=== PATIENT | female | born 1945 | race Caucasian/White ===

== ENCOUNTER 2017-01-16 05:54 | Inpatient (IN) | payer OTHER ==
[2017-01-14 14:29] VITALS: BMI 39.0
[~2017-01-16 05:54] MED LIST: PANTOPRAZOLE 40 MG TABLET (FP) PO ONE
[2017-01-16] MEDS ORDERED: TRANEXAMIC ACID 1000 MG/10 ML VIAL IVPUSH ONE (06:05)
[2017-01-16] MEDS ORDERED: CELECOXIB 200 MG CAPSULE PO ONE (06:05)
[2017-01-16] MEDS ORDERED: CEFAZOLIN 2 GM in DEXTROSE 5%-WATER - 50 ML IVPB ONE (06:05)
[2017-01-16] MEDS ORDERED: oxyCODONE HCL 10 MG SUSTAINED ACTING TABLET PO ONE (06:05)
[2017-01-16] MEDS ORDERED: GABAPENTIN 300 MG CAPSULE (FP) PO ONE (06:05)
[2017-01-16] MEDS ORDERED: ROPIVICAINE 0.2%/MORPH PF/KETOROLAC - 51ML DISP.SYRINGE IA ONE ×2 (06:05→07:12)
[2017-01-16] MEDS ORDERED: GABAPENTIN 300 MG CAPSULE (FP) ONE (06:08)
[2017-01-16] MEDS ORDERED: oxyCODONE HCL 10 MG SUSTAINED ACTING TABLET ONE (06:08)
[2017-01-16] MEDS ORDERED: PANTOPRAZOLE 40 MG TABLET (FP) ONE (06:08)
[2017-01-16] MEDS ORDERED: CELECOXIB 200 MG CAPSULE ONE (06:08)
[2017-01-16] MEDS ORDERED: DEXAMETHASONE SOD PHOSPHATE/PF 10 MG/ML SDV ONE (06:28)
[2017-01-16] MEDS ORDERED: ROPIVACAINE HCL 0.5% 30ML VIAL ONE (06:28)
[2017-01-16] MEDS ORDERED: MIDAZOLAM HCL 2 MG/2 ML SINGLE DOSE VIAL ONE ×2 (06:28→07:02)
[2017-01-16] MEDS ORDERED: TRANEXAMIC ACID 1000 MG/10 ML VIAL ONE ×2 (07:01→07:11)
[2017-01-16] MEDS ORDERED: PROPOFOL 20 ML ONE ×7 (07:02)
[2017-01-16] MEDS ORDERED: SUCCINYLCHOLINE CHLORIDE 200 MG/10 ML VIAL ONE (07:02)
[2017-01-16] MEDS ORDERED: ceFAZolin SODIUM 1 GM VIAL ONE ×2 (07:11→07:20)
[2017-01-16] MEDS ORDERED: ePHEDrine SULFATE 50 MG/1 ML AMPULE ONE (07:11)
[2017-01-16] MEDS ORDERED: VANCOMYCIN 1,000 MG VIAL (RESTRICTED TO ID ONLY) ONE (07:12)
[2017-01-16] MEDS ORDERED: BUPIVACAINE HCL/PF 0.5% (5MG/ML) 10 ML VIAL ONE (07:17)
[2017-01-16] MEDS ORDERED: SODIUM CHLORIDE 0.9% P/F 10 ML VIAL IJ ONE (07:20)
[2017-01-16] MEDS ORDERED: ONDANSETRON 4 MG/2 ML VIAL ONE ×2 (08:29→13:02)
[2017-01-16] MEDS ORDERED: LIDOCAINE HCL 2% JELLY (5 ML/TUBE) ONE (09:06)
[2017-01-16] MEDS ORDERED: ONDANSETRON 4 MG/2 ML VIAL IVPUSH PRN ×2 (10:36→13:10)
[2017-01-16] MEDS ORDERED: oxyCODONE HCL 5 MG TABLET PO PRN (10:36)
[2017-01-16] MEDS ORDERED: LACTATED RINGERS SOLUTION 1,000 ML IV SCH ×2 (10:45→13:15)
--- NOTE | 2017-01-16 12:17 | SURG ---
Surgery Gunnery/Ordnance Officer Note Gunnery/Ordnance Officer: Lizandro Walters PA-C Date of Service: 01/16/17 Diagnosis: Left knee osteoarthritis, DJD Procedure: Left total knee replacement I was present for the entirety of the operative procedure. For further detail, please refer to operative report. Visit type - Case Type Case Type: Scheduled Admission - New patient This patient is new to me today: Yes Date on this admission: 01/16/17
[2017-01-16] MEDS ORDERED: ONDANSETRON 4 MG/2 ML VIAL IVPUSH ONE (13:00)
[2017-01-16] MEDS ORDERED: MAGNESIUM HYDROX 2400MG/30ML ORAL SUSPENSION 30 ML CUP PO PRN (13:10)
[2017-01-16] MEDS ORDERED: MAG HYDROX/AL HYDROX/SIMETH 30 ML UNIT-DOSE CUP PO PRN (13:10)
--- NOTE | 2017-01-16 13:14 | OP ---
Operative Note - Note: Operative Date: 01/16/17 Pre-Operative Diagnosis: left knee OA Operation: left TKA Post-Operative Diagnosis: Same as Pre-op Surgeon: Calvin Jara Corner Former: Lizandro Walters Anesthesia: Spinal Estimated Blood Loss (mls): 150
[2017-01-16] MEDS ORDERED: KETOROLAC TROMETHAMINE 30 MG/1 ML VIAL IVPUSH ONE (13:30)
[2017-01-16] MEDS ORDERED: ACETAMINOPHEN 1000 MG/100 ML VIAL (NON FORMULARY) IVPB ONE ×2 (13:30)
[2017-01-16] MEDS ORDERED: traMADol HCL 50 MG TABLET PO ONE (14:00)
[2017-01-16] MEDS: oxyCODONE HCL 5 MG TABLET PO PRN (18:32)
[2017-01-16] MEDS: CEFAZOLIN 2 GM/D5W 50 ML IVPB SCH (18:32)
[2017-01-16] MEDS ORDERED: DEXAMETHASONE SOD PHOSPHATE 10 MG/1 ML VIAL IVPB ONE (20:00)
[2017-01-16] MEDS: KETOROLAC TROMETHAMINE 30 MG/1 ML VIAL IVPUSH SCH (20:12)
[2017-01-16] MEDS: ACETAMINOPHEN 325 MG TABLET (FP) PO SCH (20:13)
[2017-01-16] MEDS: traMADol HCL 50 MG TABLET PO SCH (20:13)
[2017-01-16] MEDS: CELECOXIB 200 MG CAPSULE PO SCH (21:17)
[2017-01-16] MEDS: GABAPENTIN 300 MG CAPSULE (FP) PO SCH (21:18)
[2017-01-16] MEDS: ASCORBIC ACID 500 MG TABLET (FP) PO SCH (21:18)
[2017-01-16] MEDS: oxyCODONE HCL 10 MG SUSTAINED ACTING TABLET PO SCH (21:18)
[2017-01-16] MEDS: SENNOSIDES/DOCUSATE COMBO (SENNA PLUS) TABLET (UD) PO SCH (21:18)
[2017-01-16] MEDS ORDERED: GABAPENTIN 300 MG CAPSULE (FP) PO SCH (22:00)
[2017-01-17] MEDS: KETOROLAC TROMETHAMINE 30 MG/1 ML VIAL IVPUSH SCH ×2 (01:44→08:30)
[2017-01-17] MEDS: CEFAZOLIN 2 GM/D5W 50 ML IVPB SCH (01:44)
[2017-01-17] MEDS: ACETAMINOPHEN 325 MG TABLET (FP) PO SCH ×4 (01:45→18:45)
[2017-01-17] MEDS: traMADol HCL 50 MG TABLET PO SCH ×4 (01:46→20:19)
[2017-01-17] MEDS: metFORMIN HCL 500 MG TABLET (FP) PO SCH (06:25)
[2017-01-17 07:37] LABS: MCHC 33.1 g/dl (32.0-36.0); MEAN CELL VOLUME 84.6 fl (80-96); PLATELET COUNT 223 K/MM3 (134-434); WHITE BLOOD COUNT 8.9 K/mm3 (4.0-10.8)
[2017-01-17 08:01] LABS: ANION GAP 5 (8-16); CALCIUM 8.7 mg/dl (8.4-10.2); CO2 25 mmol/L (22-28); CREATININE 0.9 mg/dl (0.6-1.3); GLUCOSE,RANDOM 193 mg/dl (74-106)
[2017-01-17] MEDS: ASPIRIN 325 MG TABLET PO SCH (09:03)
--- NOTE | 2017-01-17 10:27 | PN ---
Progress Note, Physician Chief Complaint: s/p left tka History of Present Illness: under spinal anesthesia and PNB for post op pain control - Current Medication List Current Medications: Active Medications Acetaminophen (Tylenol -) 650 mg PO Q6H [facility] Stop: 01/19/17 19:29 Last Admin: 01/17/17 08:00 Dose: 650 mg Al Hydroxide/Mg Hydroxide (Mylanta Oral Suspension -) 30 ml PO Q4H PRN PRN Reason: DYSPEPSIA Ascorbic Acid (Vitamin C -) 500 mg PO BID [facility] Last Admin: 01/16/17 21:18 Dose: 500 mg Aspirin (Asa -) 325 mg PO DAILY@0800 [facility] Last Admin: 01/17/17 09:03 Dose: 325 mg Celecoxib (Celebrex -) 200 mg PO BID [facility] Last Admin: 01/16/17 21:17 Dose: 200 mg Fentanyl (Sublimaze Injection -) 50 mcg IVPUSH [id number] PRN PRN Reason: PAIN Stop: 01/19/17 10:37 Gabapentin (Neurontin -) 300 mg PO BID [facility] Last Admin: 01/16/17 21:18 Dose: 300 mg Gabapentin (Neurontin -) 300 mg PO BID [facility] Stop: 01/19/17 21:59 Lactated Ringer's (Lactated Ringers Solution) 1,000 mls @ 125 mls/hr IV ASDIR [facility] Losartan Potassium (Cozaar -) 50 mg PO DAILY [facility] Magnesium Hydroxide (Milk Of Magnesia -) 30 ml PO PRN PRN PRN Reason: CONSTIPATION Metformin HCl (Glucophage -) 500 mg PO ACBK [facility] Last Admin: 01/17/17 06:25 Dose: 500 mg Multivitamins/Minerals/Vitamin C (Tab-A-Vit -) 1 tab PO DAILY [facility] Ondansetron HCl (Zofran Injection) 4 mg IVPUSH Q6H PRN PRN Reason: NAUSEA Oxycodone HCl (Roxicodone -) 5 mg PO Q3H PRN PRN Reason: PAIN LEVEL 1-5 Oxycodone HCl (Roxicodone -) 10 mg PO Q3H PRN PRN Reason: PAIN LEVEL 6-10 Last Admin: 01/16/17 18:32 Dose: 10 mg Oxycodone HCl (Oxycontin -) 10 mg PO BID [facility] Last Admin: 01/16/17 21:18 Dose: 10 mg Pantoprazole Sodium (Protonix -) 40 mg PO DAILY [facility] Senna/Docusate Sodium (Pericolace -) 2 tablet PO BID [facility] Last Admin: 01/16/17 21:18 Dose: 2 tablet Tramadol HCl (Ultram -) 50 mg PO Q6H [facility] Last Admin: 01/17/17 08:30 Dose: 50 mg - Objective Vital Signs: Vital Signs Temperature 98.0 F 01/17/17 06:24 Pulse Rate 79 01/17/17 06:24 Respiratory Rate 16 01/17/17 07:59 Blood Pressure 107/92 01/17/17 06:24 O2 Sat by Pulse Oximetry (%) 98 01/17/17 07:59 Constitutional: Yes: Well Nourished Cardiovascular: Yes: WNL Respiratory: Yes: WNL Gastrointestinal: Yes: WNL Labs: CBC, BMP 01/17/17 07:00 01/17/17 07:00 Assessment/Plan patient is doing well, no pain, no adverse effects of anesthetic, dept of anesthesia will sign off care at this time
[2017-01-17] MEDS: SENNOSIDES/DOCUSATE COMBO (SENNA PLUS) TABLET (UD) PO SCH ×2 (10:44→21:21)
[2017-01-17] MEDS: LOSARTAN POTASSIUM 50 MG TABLET (FP) PO SCH (10:45)
[2017-01-17] MEDS: MULTIVITAMINS (DAILY MVI) TABLET (FP) PO SCH (10:45)
[2017-01-17] MEDS: CELECOXIB 200 MG CAPSULE PO SCH ×2 (10:46→21:22)
[2017-01-17] MEDS: PANTOPRAZOLE 40 MG TABLET (FP) PO SCH (10:46)
[2017-01-17] MEDS: ASCORBIC ACID 500 MG TABLET (FP) PO SCH ×2 (10:46→21:22)
[2017-01-17] MEDS: GABAPENTIN 300 MG CAPSULE (FP) PO SCH ×2 (10:47→21:21)
[2017-01-17] MEDS: oxyCODONE HCL 10 MG SUSTAINED ACTING TABLET PO SCH ×2 (10:47→21:22)
--- NOTE | 2017-01-17 16:42 | PN ---
Progress Note (short form) - Note Progress Note: Pt seen and examined. Doing exceptionally well. Walked 1000+ feet since surgery. AVSS Selected Entries 01/17/17 01/17/17 07:59 14:23 Temperature 97.5 F L Pulse Rate 89 Respiratory 16 Rate Blood Pressure 132/67 O2 Sat by Pulse 98 Oximetry (%) Oxygen Delivery Room Air Method Laboratory Tests 01/17/17 01/17/17 07:00 07:00 WBC 8.9 Hgb 12.0 Hct 36.3 Plt Count 223 Sodium 131 L Potassium 4.8 Chloride 101 Carbon Dioxide 25 Anion Gap 5 L BUN 19 H Creatinine 0.9 Random Glucose 193 H Calcium 8.7 Gen: NAD LLE: c/d/i, NVID A/P 71yo female POD#1 s/p L TKA 1. PT/OOB 2. Plan for d/c home in AM
[2017-01-17] MEDS: oxyCODONE HCL 5 MG TABLET PO PRN (20:19)
[2017-01-17 22:23] VITALS: PULSE 79
[2017-01-18] MEDS: traMADol HCL 50 MG TABLET PO SCH ×2 (02:17→08:16)
[2017-01-18] MEDS: ACETAMINOPHEN 325 MG TABLET (FP) PO SCH ×2 (02:18→08:16)
[2017-01-18] MEDS: metFORMIN HCL 500 MG TABLET (FP) PO SCH (06:39)
[2017-01-18 06:43] VITALS: BP 141/64; TEMP 97.4
[2017-01-18 07:47] LABS: MCH 28.2 pg (25.7-33.7); MCHC 33.6 g/dl (32.0-36.0); MEAN PLT VOLUME 8.6 fl (7.5-11.1); PLATELET COUNT 228 K/MM3 (134-434); RDW 12.9 % (11.6-15.6); WHITE BLOOD COUNT 7.3 K/mm3 (4.0-10.8)
[2017-01-18 08:09] LABS: ANION GAP 6 (8-16); CALCIUM 8.4 mg/dl (8.4-10.2); CO2 27 mmol/L (22-28); CREATININE 0.7 mg/dl (0.6-1.3); GLUCOSE,RANDOM 128 mg/dl (74-106)
[2017-01-18] MEDS: ASPIRIN 325 MG TABLET PO SCH (08:17)
[2017-01-18] MEDS: CELECOXIB 200 MG CAPSULE PO SCH (09:05)
[2017-01-18] MEDS: LOSARTAN POTASSIUM 50 MG TABLET (FP) PO SCH (09:05)
[2017-01-18] MEDS: oxyCODONE HCL 10 MG SUSTAINED ACTING TABLET PO SCH (09:06)
[2017-01-18] MEDS: GABAPENTIN 300 MG CAPSULE (FP) PO SCH (09:06)
[2017-01-18] MEDS: SENNOSIDES/DOCUSATE COMBO (SENNA PLUS) TABLET (UD) PO SCH (09:06)
[2017-01-18] MEDS: PANTOPRAZOLE 40 MG TABLET (FP) PO SCH (09:07)
[2017-01-18] MEDS: MULTIVITAMINS (DAILY MVI) TABLET (FP) PO SCH (09:07)
[2017-01-18] MEDS: ASCORBIC ACID 500 MG TABLET (FP) PO SCH (09:07)
--- NOTE | 2017-01-18 11:09 | PN ---
Progress Note (short form) - Note Progress Note: Pt seen and examined. Doing exceptionally well. Walked 1500+ feet since surgery. AVSS Selected Entries 01/18/17 06:00 Temperature 97.4 F L Pulse Rate 79 Respiratory 19 Rate Blood Pressure 141/64 O2 Sat by Pulse 98 Oximetry (%) Oxygen Delivery Room Air Method Laboratory Tests 01/18/17 01/18/17 07:35 07:35 WBC 7.3 Hgb 11.7 Hct 34.8 Plt Count 228 Sodium 132 L Potassium 4.4 Chloride 99 Carbon Dioxide 27 Anion Gap 6 L BUN 24 H D Creatinine 0.7 D Random Glucose 128 H D Calcium 8.4 Gen: NAD LLE: c/d/i, NVID A/P 71yo female POD#2 s/p L TKA 1. D/C home today, f/u in office in 10-14 days. 2. Hx of LE cellulitis - will be sent home with Keflex 500mg TID x 14 days.
--- NOTE | 2017-01-20 12:26 | PATH ---
Surgical Pathology Report Patient Name: JOHNSON MAR Med. Rec. #: [id number] /Age/Gender: 1945 (Age: 71) / F Account: [id number] Location: [facility] Taken: 01/17/2017 Received: 01/17/2017 Reported: 01/20/2017 Physicians: Calvin Jara M.D. Specimen(s) Received BONE LEFT KNEE Clinical History Left knee osteoarthritis Final Diagnosis BONE AND SOFT TISSUE, LEFT KNEE, REPLACEMENT: DEGENERATIVE JOINT DISEASE. Electronically Signed Foreign Rosales M.D. Gross Description Received in formalin labeled "bone left knee," is a 12.0 x 10.5 x 2.2 cm aggregate of multiple noguera, irregular portions of bone and soft tissue, consistent with knee bones. There is a 2.8 cm in greatest dimension area of eburnation identified. The remaining articular surfaces are noguera-yellow and diffusely granular. The underlying trabecular bone is yellow and hard. Animal Husbandry Technician sections are submitted in one cassette, following decalcification. 01/17/2017 [facility]01/17/2017
== END 2017-01-18 13:14 | disposition home health service (06) | DRG 302 ==
LOC: FM/S 05:54
PROVIDERS: ADMIT Student in an Organized Health Care Education/Training Program; ATTEND Student in an Organized Health Care Education/Training Program
PROC: 0SRD0JA Replacement of Left Knee Joint with Synthetic Substitute, Uncemented, Open Approach (ICD-10-PCS; principal; 2017-01-16 09:11)
DX: M17.12 Unilateral primary osteoarthritis, left knee (principal); I10 Essential (primary) hypertension; E11.9 Type 2 diabetes mellitus without complications; E66.01 Morbid (severe) obesity due to excess calories; Z68.39 Body mass index [BMI] 39.0-39.9, adult
CPT/HCPCS: 36415; 73560-TC-LT; 80048; 85027; 88304-TC; 88311-TC; 94010; 94760; 97116-GP; 97162-GP

== ENCOUNTER 2017-02-09 14:39 | Emergency (ER) | payer OTHER ==
[2017-02-09 14:48] VITALS: TEMP 98.6; BMI 39.0
--- NOTE | 2017-02-09 16:27 | PDOC ---
History of Present Illness - General Chief Complaint: Pain, Acute Stated Complaint: KNEE PAIN/Left knee infection post-op Time Seen by Provider: 02/09/17 15:40 - History of Present Illness Initial Comments: 02/09/17 16:22 The patient is a 71 year old female, with a significant past medical history of hypertension and bilateral TKR (Left knee on 01/18/17), who presents to the emergency department for drainage from her L knee incision. The patient denies pain to the left knee, denies limitation in her ROM, denies fevers, denies increased swelling to left lower extremity, and reports she is still ambulatory without any pain. Pt reports falling onto her knee a week after her surgery, which caused her wound to dehisce. She was seen at [facility] and had XRs that were normal. She has since been going to wound care clinic and has seen Dr. Jara, the surgeon who did her knee replacement. At her last wound care visit, pt was placed on Keflex, which she is still taking. Pt states that the wound drainage is bothersome to her, but she otherwise feels very well. She denies chest pain, shortness of breath, headache and dizziness. She denies fever, chills, nausea, vomit, diarrhea and constipation. She denies dysuria, frequency, urgency and hematuria. Allergies: NKDA Past History - Past Medical History Allergies/Adverse Reactions: Allergies Allergy/AdvReac Type Severity Reaction Status Date / Time No Known Allergies Allergy Verified 02/09/17 15:42 Home Medications: Ambulatory Orders RX: Losartan Potassium 50 mg PO DAILY 01/14/17 RX: Metformin HCl 500 mg PO DAILY 01/14/17 Oxycodone HCl/Acetaminophen [Percocet 5-325 mg Tablet] 1 - 2 tab PO Q4H PRN #60 tablet MDD 10 01/17/17 RX: Ascorbic Acid [Vitamin C -] 500 mg PO BID tablet 01/17/17 RX: Aspirin [ASA -] 325 mg PO DAILY@0800 #40 tablet 01/17/17 RX: Celecoxib [CeleBREX -] 200 mg PO BID #60 tab 01/17/17 RX: Cephalexin [Keflex] 500 mg PO TID #42 capsule 01/17/17 RX: Multivitamins [Multivit ([facility] Formulary)] 1 tab PO DAILY tab 01/17/17 RX: Pantoprazole Sodium [Protonix -] 40 mg PO DAILY #40 tab 01/17/17 Anemia: No Asthma: No Cancer: No Cardiac Disorders: Yes (heart arrythmias) CVA: No COPD: No CHF: No Dementia: No Diabetes: Yes GI Disorders: No Disorders: No HTN: Yes Hypercholesterolemia: No Liver Disease: No Seizures: No Thyroid Disease: No - Surgical History Abdominal Surgery: No Appendectomy: No Cardiac Surgery: No Cholecystectomy: No Lung Surgery: No Neurologic Surgery: No Orthopedic Surgery: Yes (RTKR left knee replacement 01/14) - Suicide/Smoking/Psychosocial Hx Smoking History: Never smoked Have you smoked in the past 12 months: No Number of Cigarettes Smoked Daily: 0 Information on smoking cessation initiated: No Hx Alcohol Use: No Drug/Substance Use Hx: No Substance Use Type: None Hx Substance Use Treatment: No Review of Systems - Review of Systems Comments:: 02/09/17 16:26 """GENERAL/CONSTITUTIONAL: No fever or chills. No weakness. HEAD, EYES, EARS, NOSE AND THROAT: No change in vision. No ear pain or discharge. No sore throat. CARDIOVASCULAR: No chest pain or shortness of breath. RESPIRATORY: No cough, wheezing, or hemoptysis. GASTROINTESTINAL: No nausea, vomiting, diarrhea or constipation. GENITOURINARY: No dysuria, frequency, or change in urination. MUSCULOSKELETAL: No joint or muscle swelling or pain. No neck or back pain. SKIN: (+) left knee incision draining clear fluid. No rash NEUROLOGIC: No headache, vertigo, loss of consciousness, or change in strength/ sensation. ENDOCRINE: No increased thirst. No abnormal weight change. HEMATOLOGIC/LYMPHATIC: No anemia, easy bleeding, or history of blood clots. ALLERGIC/IMMUNOLOGIC: No hives or skin allergy. """ *Physical Exam - Vital Signs Last Vital Signs Temp Pulse Resp BP Pulse Ox 98.6 F 115 H 19 154/86 96 02/09/17 14:43 02/09/17 14:43 02/09/17 14:43 02/09/17 14:43 02/09/17 14:43 - Physical Exam Comments: 02/09/17 16:26 "GENERAL: Awake, alert, and fully oriented, in no acute distress HEAD: No signs of trauma EYES: PERRLA, EOMI, sclera anicteric, conjunctiva clear ENT: Auricles normal inspection, hearing grossly normal, nares patent, oropharynx clear without exudates. Moist mucosa NECK: Nontender, no stepoffs, Normal ROM, supple, no lymphadenopathy, JVD, or masses LUNGS: Breath sounds equal, clear to auscultation bilaterally. No wheezes, and no crackles HEART: Regular rate and rhythm, normal S1 and S2, no murmurs, rubs or gallops ABDOMEN: Soft, nontender, normoactive bowel sounds. No guarding, no rebound. No masses EXTREMITIES: (+) L knee surgical incision with small area of dehiscence draining serosanguinous fluid, wound otherwise well healing, no erythema, no fluctuance, no purulence. Normal range of motion, no edema. No clubbing or cyanosis. No cords, erythema, or tenderness NEUROLOGICAL: Cranial nerves II through XII intact. 5/5 strength and sensation in all extremities, Normal speech, normal gait " ED Treatment Course - LABORATORY CBC & Chemistry Diagram: 02/09/17 16:00 02/09/17 16:00 Medical Decision Making - Medical Decision Making 02/09/17 16:27 71 F with drainage from L knee surgical incision s/p TKA 01/18. Wound notable for small area of dehiscence. No signs or symptoms of septic arthritis. No evidence of cellulitis or wound infection on exam. Wound appears otherwise well healing. Pt with no evidence of DVT on exam - reports that her leg swelling is chronic and at baseline. Denies any new or increased swelling. I spoke with Dr. Jara, who is aware of wound dehiscence. He recommends continuing pt's course of Keflex. Does not wish to obtain any additional imaging today. Pt has f/u appointment with wound care this . - Check basic labs - Dressing change - F/u ortho and wound care 02/09/17 18:00 Labs unremarkable. ESR and CRP slightly elevated, expected in post-op setting. Pt's wound dressed. I discussed the physical exam findings, ancillary test results and final diagnoses with the patient. I answered all of the patient's questions. The patient was satisfied with the care received and felt comfortable with the discharge plan and treatment plan. The patient agrees to follow up with the wound care clinic this week. *DC/Admit/Observation/Transfer Diagnosis at time of Disposition: Wound dehiscence - Discharge Dispostion Disposition: HOME - Referrals Referrals: Sabino Trivedi [Primary Care Provider] - - Patient Instructions Printed Discharge Instructions: DI for Wound Dehiscence Additional Instructions: Continue taking the Keflex as prescribed. Follow up with wound care clinic as scheduled on . If you experience worsening drainage, redness, pain, swelling, or any other concerning symptoms, return to the ER immediately. - Post Discharge Activity - Attestations Physician Attestion: 02/09/17 17:28 I, Dr. Justen Munguia MD, attest that this document has been prepared under my direction and personally reviewed by me in its entirety. I further attest, that it accurately reflects all work, treatment, procedures and medical decision -making performed by me.
[2017-02-09 16:31] LABS: BASOPHIL 1.2 % (0-2.0); EOSINOPHIL 1.6 % (0-4.5); MCH 27.4 pg (25.7-33.7); MCHC 32.8 g/dl (32.0-36.0); MEAN CELL VOLUME 83.7 fl (80-96); MEAN PLT VOLUME 8.7 fl (7.5-11.1); NEUTROPHILS 68.8 % (42.8-82.8); PLATELET COUNT 337 K/MM3 (134-434); RDW 14.2 % (11.6-15.6); WHITE BLOOD COUNT 7.1 K/mm3 (4.0-10.0)
[2017-02-09 16:54] LABS: ALBUMIN 3.5 g/dl (3.4-5.0); ALK PHOS 140 U/L (45-117); ANION GAP 9 (8-16); BILIRUBIN,TOTAL 0.3 mg/dL (0.2-1.0); CO2 24 mmol/L (21-32); CREATININE 0.8 mg/dL (0.55-1.02); GLUCOSE,RANDOM 126 mg/dL (74-106); SGOT/AST 21 U/L (15-37); SGPT/ALT 22 U/L (12-78); TOT PROT 7.3 g/dl (6.4-8.2)
[2017-02-09 17:06] LABS: C-REACTIVE PROTEIN 0.9 MG/DL (0.00-0.3)
[2017-02-09 17:47] VITALS: BP 135/80; PULSE 95
[2017-02-09 18:02] LABS: ERYTHROCYTE SEDIMENTATION RATE 48 mm/hr (0-30)
== END 2017-02-09 17:44 | disposition home or self-care (01) ==
LOC: JER 14:39
DX: T81.31XA Disruption of external operation (surgical) wound, not elsewhere classified, initial encounter (principal); Z98.890 Other specified postprocedural states; I10 Essential (primary) hypertension; E11.9 Type 2 diabetes mellitus without complications; Z79.84 Long term (current) use of oral hypoglycemic drugs; I49.9 Cardiac arrhythmia, unspecified; Z96.653 Presence of artificial knee joint, bilateral
CPT/HCPCS: 36415; 80053; 85025; 85651; 86140; 99282-25

== ENCOUNTER 2017-03-17 09:10 | Inpatient (IN) | payer OTHER ==
[2017-03-14 15:02] VITALS: BMI 39.0
--- NOTE | 2017-03-17 10:00 | HP ---
Admitting History and Physical - Admission Chief Complaint: Infected left total knee arthroplasty History of Present Illness: 71 year old female presenting in regard to her left knee. She is status post a left total knee arthroplasty 01/16/2017. She presented to the office with noted drainage of her incision. She denies fevers, chills, constitutional symptoms - but with purulent drainage from the incision. She admits to continued pain about her left knee since her initial surgery. History Source: Patient - Past Medical History Cardiovascular: Yes: HTN Gastrointestinal: Yes: GERD ...: No Endocrine: Yes: Diabetes Mellitus - Past Surgical History Additional Past Surgical History: s/p left total knee arthroplasty 01/16/2017 - Smoking History Smoking history: Never smoked Have you smoked in the past 12 months: No Aproximately how many cigarettes per day: 0 - Alcohol/Substance Use Hx Alcohol Use: No <Antonia Maxwell - Last Filed: 03/17/17 10:01> - Admission History of Present Illness: 71 yo female s/p L TKA 01/16/17. Did well postop but fell and dehisced lower portion of wound. Pt was followed by [facility] wound care center but developed increasing wound drainage and formation of a sinus tract. Indicated for I&D and poly exchange. <Calvin Jara - Last Filed: 03/17/17 14:36> Home Medications <Antonia Maxwell - Last Filed: 03/17/17 10:01> <Calvin Jara - Last Filed: 03/17/17 14:36> - Allergies Allergies/Adverse Reactions: Allergies Allergy/AdvReac Type Severity Reaction Status Date / Time No Known Allergies Allergy Verified 03/17/17 09:50 - Home Medications Home Medications: Ambulatory Orders Losartan Potassium 50 mg PO DAILY 01/14/17 Metformin HCl 500 mg PO DAILY 01/14/17 Celecoxib [CeleBREX -] 200 mg PO BID #60 tab 01/17/17 Multivitamins [Multivit ([facility] Formulary)] 1 tab PO DAILY tab 01/17/17 Pantoprazole Sodium [Protonix -] 40 mg PO DAILY #40 tab 01/17/17 Ascorbic Acid [Vitamin C -] 500 mg PO DAILY 03/14/17 Diphenhydramine HCl [Benadryl -] 25 mg PO ONCE 03/17/17 Review of Systems - Review of Systems Musculoskeletal: reports: Joint Pain (left knee), Joint Swelling (left knee), Other (Drainage from left knee incision site) <Antonia Maxwell - Last Filed: 03/17/17 10:01> Physical Examination Vital Signs: Vital Signs Temperature 98.1 F 03/17/17 09:52 Pulse Rate 90 03/17/17 09:52 Respiratory Rate 18 03/17/17 09:52 Blood Pressure 153/98 03/17/17 09:52 O2 Sat by Pulse Oximetry (%) Constitutional: Yes: Well Nourished, No Distress Eyes: Yes: Conjunctiva Clear HENT: Yes: Atraumatic, Normocephalic Neck: Yes: Supple Cardiovascular: Yes: Regular Rate and Rhythm Respiratory: Yes: Regular Gastrointestinal: Yes: Soft ...Rectal Exam: Yes: Deferred Musculoskeletal: Yes: Joint Swelling (left knee), Other (drainage from left total knee incision) <Antonia Maxwell - Last Filed: 03/17/17 10:01> Vital Signs: Vital Signs Temperature 97.7 F 03/17/17 13:57 Pulse Rate 80 03/17/17 13:57 Respiratory Rate 16 03/17/17 13:57 Blood Pressure 147/97 03/17/17 13:57 O2 Sat by Pulse Oximetry (%) 98 03/17/17 13:57 <Calvin Jara - Last Filed: 03/17/17 14:36> Assessment/Plan 71 year old female presenting in regard to her left knee. She is status post a left total knee arthroplasty 01/16/2017. She presented to the office with drainage from her incision. She denies fevers, chills, constitutional symptoms. She admits to continued pain and drainaged of the left knee. The concern of infected left total knee arthroplasty was discussed. The pros, cons, risks, benefits and alternatives of a incision and drainage of left total knee arthroplasty with polyethylene exchange was discussed. Patient confirms her understanding and wishes to proceed with incise and drainage of left total knee arthroplasty with polyethylene exchange. <Antonia Maxwell - Last Filed: 03/17/17 10:01>
[2017-03-17] MEDS ORDERED: MIDAZOLAM HCL 2 MG/2 ML SINGLE DOSE VIAL ONE ×4 (10:47→13:09)
[2017-03-17] MEDS ORDERED: ceFAZolin SODIUM 1 GM VIAL ONE ×3 (10:54→18:16)
[2017-03-17] MEDS ORDERED: ceFAZolin SODIUM 1 GM VIAL IVPB ONE (11:06)
[2017-03-17] MEDS ORDERED: VANCOMYCIN 1,000 MG VIAL (RESTRICTED TO ID ONLY) ONE ×2 (11:51→18:01)
[2017-03-17] MEDS ORDERED: cefTRIAXone SODIUM 1 GM VIAL IVPB ONE (12:25)
[2017-03-17] MEDS ORDERED: VANCOMYCIN 1,000 MG VIAL (RESTRICTED TO ID ONLY) IVPB ONE (12:26)
[2017-03-17] MEDS ORDERED: BUPIVACAINE HCL 0.5% 250 MG/50 ML VIAL IJ ONE (13:24)
[2017-03-17] MEDS ORDERED: HYDROmorphone HCL CARPU-JECT 2 MG/1 ML DISP.SYRIN ONE (14:03)
[2017-03-17] MEDS: HYDROmorphone HCL CARPU-JECT 1 MG/1 ML DISP.SYRIN IVPUSH PRN ×2 (14:10→14:40)
--- NOTE | 2017-03-17 14:34 | OP ---
Operative Note - Note: Operative Date: 03/17/17 Pre-Operative Diagnosis: Left knee replacement periprosthetic joint infection Operation: Irrigation and debridement of left total knee replacement with polyethylene exchange Post-Operative Diagnosis: Same as Pre-op Surgeon: Calvin Jara Community Development Planner: Antonia Maxwell Anesthesia: Spinal Estimated Blood Loss (mls): 500
[2017-03-17] MEDS ORDERED: ACETAMINOPHEN 1000 MG/100 ML VIAL (NON FORMULARY) IVPB ONE (14:37)
[2017-03-17] MEDS ORDERED: oxyCODONE HCL 5 MG TABLET PO PRN ×2 (14:38→14:39)
[2017-03-17] MEDS ORDERED: ONDANSETRON 4 MG/2 ML VIAL IVPUSH PRN (14:40)
[2017-03-17] MEDS ORDERED: MAGNESIUM HYDROX 2400MG/30ML ORAL SUSPENSION 30 ML CUP PO PRN (14:40)
[2017-03-17] MEDS ORDERED: MAG HYDROX/AL HYDROX/SIMETH 30 ML UNIT-DOSE CUP PO PRN (14:40)
[2017-03-17] MEDS ORDERED: KETOROLAC TROMETHAMINE 30 MG/1 ML VIAL IVPUSH SCH (14:45)
[2017-03-17] MEDS ORDERED: LACTATED RINGERS SOLUTION 1,000 ML IV SCH (14:45)
[2017-03-17] MEDS ORDERED: oxyCODONE HCL 10 MG SUSTAINED ACTING TABLET PO ONE (14:46)
[2017-03-17] MEDS: traMADol HCL 50 MG TABLET PO SCH ×2 (15:38→23:25)
[2017-03-17] MEDS: KETOROLAC TROMETHAMINE 30 MG/1 ML VIAL IVPUSH SCH ×2 (16:01→23:23)
[2017-03-17] MEDS ORDERED: VANCOMYCIN 1,250 MG in DEXTROSE 5%-WATER - 250 ML IVPB ONE (16:30)
[2017-03-17] MEDS ORDERED: VANCOMYCIN 500 MG VIAL (RESTRICTED TO ID ONLY) ONE (18:00)
[2017-03-17] MEDS: CEFAZOLIN 2 GM/D5W 2 GM/50 ML ML IVPB SCH (18:21)
[2017-03-17] MEDS: SENNOSIDES/DOCUSATE COMBO (SENNA PLUS) TABLET (UD) PO SCH (23:25)
[2017-03-17] MEDS: GABAPENTIN 300 MG CAPSULE (FP) PO SCH (23:25)
[2017-03-17] MEDS: ACETAMINOPHEN 325 MG TABLET (FP) PO SCH (23:26)
[2017-03-17] MEDS: oxyCODONE HCL 10 MG SUSTAINED ACTING TABLET PO SCH (23:26)
[2017-03-18] MEDS: CELECOXIB 200 MG CAPSULE PO SCH ×3 (00:34→21:18)
[2017-03-18] MEDS: CEFAZOLIN 2 GM/D5W 2 GM/50 ML ML IVPB SCH ×2 (03:09→09:21)
[2017-03-18] MEDS: KETOROLAC TROMETHAMINE 30 MG/1 ML VIAL IVPUSH SCH ×2 (03:54→09:21)
[2017-03-18] MEDS: ACETAMINOPHEN 325 MG TABLET (FP) PO SCH ×4 (03:54→21:18)
[2017-03-18] MEDS: traMADol HCL 50 MG TABLET PO SCH ×4 (03:56→21:19)
[2017-03-18] MEDS: metFORMIN HCL 500 MG TABLET (FP) PO SCH (06:43)
[2017-03-18 08:17] LABS: MCH 26.7 pg (25.7-33.7); MCHC 31.6 g/dl (32.0-36.0); MEAN CELL VOLUME 84.5 fl (80-96); MEAN PLT VOLUME 8.4 fl (7.5-11.1); PLATELET COUNT 241 K/MM3 (134-434); RDW 13.6 % (11.6-15.6); WHITE BLOOD COUNT 7.3 K/mm3 (4.0-10.0)
[2017-03-18 08:36] LABS: ANION GAP 10 (8-16); CALCIUM 8.1 mg/dL (8.5-10.1); CO2 26 mmol/L (21-32); CREATININE 0.8 mg/dL (0.55-1.02); GLUCOSE,RANDOM 98 mg/dL (74-106)
[2017-03-18] MEDS ORDERED: PT OWN MED DRAWER 7, Y5N ONE ×2 (09:05→12:34)
[2017-03-18] MEDS: ASPIRIN 325 MG ENTERIC COATED TABLET (FP) PO SCH (09:17)
[2017-03-18] MEDS: GABAPENTIN 300 MG CAPSULE (FP) PO SCH ×2 (09:17→21:18)
[2017-03-18] MEDS: LOSARTAN POTASSIUM 50 MG TABLET (FP) PO SCH (09:17)
[2017-03-18] MEDS: SENNOSIDES/DOCUSATE COMBO (SENNA PLUS) TABLET (UD) PO SCH ×2 (09:18→21:18)
[2017-03-18] MEDS: oxyCODONE HCL 10 MG SUSTAINED ACTING TABLET PO SCH ×2 (09:18→21:19)
[2017-03-18] MEDS: MULTIVITAMINS (DAILY MVI) TABLET (FP) PO SCH (09:19)
[2017-03-18] MEDS: PANTOPRAZOLE 40 MG TABLET (FP) PO SCH (09:19)
[2017-03-18] MEDS: ASCORBIC ACID 500 MG TABLET (FP) PO SCH (09:21)
--- NOTE | 2017-03-18 11:46 | PN ---
Progress Note (short form) - Note Progress Note: ID consult dictated imp/reccd 71 year old female s/p left knee TKR 01/16/17- she fell after surgery at home and developed an opening at the incison that has not healed continued serous drainage- seen in wound care- cultures with pseudomonas/ enterococcus she was taking keflex for 6 to 7 weeks without improvement no fevers or chills seen by ortho as outpt and admitted yesterday for debridement and irrigation of the left TKR with poly exchange prosthetic knee infection secondary to wound dehiscence due to fall cultures pending blood cultures, esr, crp will treat with vanco/zosyn while awaiting culture results Problem List - Problems (1) Infection of prosthetic left knee joint Code(s): T84.54XA - INFECT/INFLM REACTION DUE TO INTERNAL LEFT KNEE PROSTH, INIT (2) Wound dehiscence Code(s): T81.30XA - DISRUPTION OF WOUND, UNSPECIFIED, INITIAL ENCOUNTER
[2017-03-18] MEDS ORDERED: PIPERACILLIN/TAZOB 3.375 GM/50 ML PRE-DOCKED IVPB SCH (12:00)
[2017-03-18] MEDS: VANCOMYCIN 1,250 MG in DEXTROSE 5%-WATER - 250 ML IVPB SCH ×2 (12:40→13:26)
[2017-03-18] MEDS ORDERED: PIPERACILLIN/TAZOB 4.5 GM 4.5 GM in DEXTROSE 5%-WATER - 100 ML IVPB SCH (13:00)
--- NOTE | 2017-03-18 13:10 | PN ---
Progress Note (short form) - Note Progress Note: POD #1 - s/p irrigation and debridement of left knee replacement with poly exchange under spinal anesthesia. VSS. Pt. doing well, sitting up comfortably in chair with leg up. Tolerated rehab. earlier. No complaints. Good pain control. No apparent anesthetic complications noted. Continue current care.
--- NOTE | 2017-03-18 14:55 | CONS ---
INFECTIOUS DISEASE CONSULTATION DATE OF CONSULTATION: DATE OF DICTATION: 03/18/2017 REQUESTING PHYSICIAN: Calvin Jara MD HISTORY OF PRESENT ILLNESS: This is a 71-year-old woman with a history of osteoarthritis, hypertension, GERD, and diabetes. She is status post bilateral knee replacement. She underwent a right total knee replacement in May 2016. In December, she underwent a left total knee replacement. Unfortunately, at home, she sustained a mechanical fall sometime after her knee replacement that resulted in the incision opening. She started having drainage from the knee, that has persisted. She was readmitted yesterday by her orthopedist with continued drainage which he described as purulent. She had no fevers or chills. No constitutional symptoms. She reports that she has been taking antibiotic, she thinks Keflex, for the last 7-8 weeks, which she stopped a week ago. She was also seen at wound care for this problem. PAST MEDICAL HISTORY: Notable for hypertension, GERD, osteoarthritis, diabetes. SURGICAL HISTORY: Notable for the prior right total knee replacement as well as she has had ankle surgery in the past, which was about 2 years ago. The left total knee replacement was done January 16. FAMILY HISTORY: Noncontributory. SOCIAL HISTORY: She lives in the community. She is originally from [place]. She lives with her son. She used to work [employer] at [employer]. She retired in 2005. There is no history of any cigarette or substance use. REVIEW OF SYSTEMS: She denies fevers, chills, nausea, vomiting, diarrhea, or dysuria. So, per Dr. Jara's notes, she developed a sinus tract at the site of the open incision. She reports finishing her antibiotics last Friday. ALLERGIES: She has no known drug allergies. MEDICATIONS AT HOME: Include losartan, metformin, Celebrex, multivitamins, Protonix, vitamin C, and Benadryl. PHYSICAL EXAMINATION: Vital Signs: Temperature is 98, T-max 99.1; pulse of 81; blood pressure 116/60; respiratory rate is 18. HEENT: She is normocephalic. Her eyes are anicteric. Neck: Supple. Lungs: Clear to auscultation. Heart: Regular rate and rhythm. Abdomen: Soft, nontender. Extremities: She has a well-healed right total knee incision. She has a well- healed wound on her right ankle, and her left total knee she is in an immobilizer with a dressing with VAC in place. DIAGNOSTIC DATA: Labs are notable for white count of 7.3, hemoglobin 9.4, platelets are 241. Sedimentation rate from January is 48. Her INR is 1. BUN is 19 and creatinine 0.8. CRP from January is 0.9. Hemoglobin A1c is 6.1. Prior cultures from the wound drainage have grown pseudomonas and enterococcus, and cultures from the OR are pending. She underwent an irrigation and debridement of the left total knee replacement with poly exchange. In summary, this is an elderly woman admitted with a prosthetic knee infection secondary to wound dehiscence due to fall. Cultures are pending from the operating room. Would obtain blood cultures, an ESR, and a CRP. Would treat with vancomycin and Zosyn while awaiting the further results. I will speak with Dr. Jara regarding the care of his patient. ABBIE CAIN M.D. [id number] MTDD
[2017-03-18] MEDS: PIPERACILLIN/TAZOB 4.5 GM 4.5 GM in DEXTROSE 5%-WATER - 100 ML IVPB SCH ×2 (16:02→18:56)
--- NOTE | 2017-03-18 21:57 | PN ---
Progress Note (short form) - Note Progress Note: Pt seen and examined. Doing well. Pain controlled. AVSS Selected Entries 03/18/17 03/18/17 14:59 16:25 Temperature 98.4 F 98.2 F Pulse Rate 90 88 Respiratory 16 20 Rate Blood Pressure 131/70 98/42 Laboratory Tests 03/18/17 03/18/17 03/18/17 06:40 06:40 12:53 WBC 7.3 Hgb 9.4 L D Hct 29.9 L D Plt Count 241 D Sodium 137 Potassium 4.2 Chloride 101 Carbon Dioxide 26 Anion Gap 10 BUN 19 H Creatinine 0.8 Random Glucose 98 D Calcium 8.1 L C-Reactive Protein 7.6 H D Gen: NAD LLE: VAC in place, functional. NVID A/P 71yo female POD#1 s/p I&D of L TKA periprosthetic joint infection with poly exchange 1. PT/OOB - WBAT LLE with brace on at all times. 2. VAC change Friday - please have supplies at bedside for dressing change by 3. ID consult appreciated 4. Will need PICC line before discharge for home IV abx
[2017-03-19] MEDS: PIPERACILLIN/TAZOB 4.5 GM 4.5 GM in DEXTROSE 5%-WATER - 100 ML IVPB SCH ×3 (01:03→17:56)
[2017-03-19] MEDS: VANCOMYCIN 1,250 MG in DEXTROSE 5%-WATER - 250 ML IVPB SCH (01:03)
[2017-03-19] MEDS: traMADol HCL 50 MG TABLET PO SCH ×4 (03:13→21:32)
[2017-03-19] MEDS: ACETAMINOPHEN 325 MG TABLET (FP) PO SCH ×4 (03:13→21:32)
[2017-03-19] MEDS: metFORMIN HCL 500 MG TABLET (FP) PO SCH (06:41)
[2017-03-19 08:05] LABS: MCH 26.9 pg (25.7-33.7); MCHC 31.9 g/dl (32.0-36.0); MEAN CELL VOLUME 84.3 fl (80-96); MEAN PLT VOLUME 8.6 fl (7.5-11.1); PLATELET COUNT 220 K/MM3 (134-434); RDW 13.2 % (11.6-15.6); WHITE BLOOD COUNT 7.5 K/mm3 (4.0-10.0)
[2017-03-19 08:33] LABS: ANION GAP 8 (8-16); CALCIUM 7.9 mg/dL (8.5-10.1); CO2 28 mmol/L (21-32); GLUCOSE,RANDOM 110 mg/dL (74-106)
[2017-03-19] MEDS ORDERED: PT OWN MED DRAWER 7, Y5N ONE ×4 (09:06→21:06)
--- NOTE | 2017-03-19 09:27 | PN ---
Progress Note (short form) - Note Progress Note: [facility] pod #2 Vital Signs Period Temp Pulse Resp BP Sys/Parnell Pulse Ox Last 24 Hr 98.1 F-98.4 F 87-90 16-20 98-131/42-70 94 cor-rrr lungs clear abd soft,nt leg with immobilizer and vac CBC, BMP 03/19/17 06:30 03/19/17 06:30 Microbiology 03/17/17 12:20 Knee - Left Gram Stain - Final 03/17/17 12:20 Knee - Left Wound Culture - Preliminary Group D Strep Or Entero Coccus 03/17/17 12:20 Tissue-Other Gram Stain - Final 03/17/17 12:20 Tissue-Other Tissue Culture - Preliminary Group D Strep Or Entero Coccus Laboratory Tests 02/09/17 02/09/17 03/18/17 16:00 16:00 12:53 ESR 48 H C-Reactive Protein 0.9 H 7.6 H D 03/18/17 12:53 ESR 42 H C-Reactive Protein a/p prosthetic knee infection secondary to wound dehiscence due to fall cultures pending-so far enterococcus! blood cultures, continue vanco/zosyn, f/u operative cultures f/u vancomycin trough Problem List - Problems (1) Infection of prosthetic left knee joint Code(s): T84.54XA - INFECT/INFLM REACTION DUE TO INTERNAL LEFT KNEE PROSTH, INIT (2) Wound dehiscence Code(s): T81.30XA - DISRUPTION OF WOUND, UNSPECIFIED, INITIAL ENCOUNTER
[2017-03-19] MEDS: PANTOPRAZOLE 40 MG TABLET (FP) PO SCH (09:43)
[2017-03-19] MEDS: ASPIRIN 325 MG ENTERIC COATED TABLET (FP) PO SCH (09:43)
[2017-03-19] MEDS: GABAPENTIN 300 MG CAPSULE (FP) PO SCH ×2 (09:43→21:31)
[2017-03-19] MEDS: LOSARTAN POTASSIUM 50 MG TABLET (FP) PO SCH (09:44)
[2017-03-19] MEDS: ASCORBIC ACID 500 MG TABLET (FP) PO SCH (09:44)
[2017-03-19] MEDS: oxyCODONE HCL 10 MG SUSTAINED ACTING TABLET PO SCH ×2 (09:44→21:32)
[2017-03-19] MEDS: SENNOSIDES/DOCUSATE COMBO (SENNA PLUS) TABLET (UD) PO SCH ×2 (09:45→21:30)
[2017-03-19] MEDS: MULTIVITAMINS (DAILY MVI) TABLET (FP) PO SCH (09:47)
[2017-03-19] MEDS: CELECOXIB 200 MG CAPSULE PO SCH ×2 (09:47→21:56)
[2017-03-19] MEDS: VANCOMYCIN 1,000 MG in DEXTROSE 5%-WATER - 250 ML IVPB SCH (14:30)
[2017-03-19] MEDS ORDERED: VANCOMYCIN 1 GRAM (PRE-DOCKED) 1,000 MG/250 ML BAG IVPB SCH (15:00)
--- NOTE | 2017-03-19 18:06 | PATH ---
Surgical Pathology Report Patient Name: JOHNSON MAR Med. Rec. #: [id number] /Age/Gender: 1945 (Age: 71) / F Account: [id number] Location: [facility] MED/SURG Taken: 03/17/2017 Received: 03/18/2017 Reported: 03/19/2017 Physicians: Calvin Jara M.D. Specimen(s) Received REMOVAL IMPLANT LEFT KNEE Clinical History Infection left knee replacement Final Diagnosis KNEE, LEFT, IMPLANT, REMOVAL: SURGICAL HARDWARE. MACROSCOPIC DIAGNOSIS. Electronically Signed Erika Juan M.D. Gross Description Received fresh labeled "removed implant left knee," is a 7.0 x 4.5 x 3.0 cm white, plastic device, consistent with knee hardware. There are 3 additional white fragmented portions of plastic ranging from 1.2 x 0.9 x 0.4 cm to 1.5 x 0.9 x 0.8 cm. There is a 5.2 cm in length portion of law metallic wire as well as a 3.7 cm in length x 0.6 cm in diameter kirkpatrick metallic myriam present. No soft tissue is present. No sections are submitted, gross only. 03/18/201703/18/2017
[2017-03-19] MEDS ORDERED: PICC LINE 8 ML FLUSH PROTOCOL IVPUSH PRN (23:23)
--- NOTE | 2017-03-19 23:27 | PN ---
Progress Note (short form) - Note Progress Note: Pt seen and examined. Doing well. Pain controlled. Walked several hundred feet with PT. AVSS Microbiology 03/17/17 12:20 Tissue-Other Gram Stain - Final 03/17/17 12:20 Tissue-Other Anaerobic Culture - Final Enterococcus Faecalis NO ANAEROBES WERE ISOLATED 03/17/17 12:20 Knee - Left Gram Stain - Final 03/17/17 12:20 Knee - Left Wound Culture - Final Enterococcus Faecalis Selected Entries 03/19/17 17:44 Temperature 98.1 F Pulse Rate 91 H Respiratory 20 Rate Blood Pressure 127/61 Laboratory Tests 03/19/17 03/19/17 03/19/17 06:30 06:30 11:50 WBC 7.5 Hgb 9.3 L Hct 29.0 L Plt Count 220 Sodium 136 Potassium 3.9 Chloride 100 Carbon Dioxide 28 Anion Gap 8 BUN 24 H D Creatinine 1.0 D POC Glucometer Random Glucose 110 H Calcium 7.9 L Vancomycin Pre-Dose 18.891 H* 03/19/17 12:45 WBC Hgb Hct Plt Count Sodium Potassium Chloride Carbon Dioxide Anion Gap BUN Creatinine POC Glucometer 198 Random Glucose Calcium Vancomycin Pre-Dose Gen: NAD LLE: VAC in place, functional. 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 PT/OOB - WBAT LLE. D/C brace but do not bend past 60 degrees to avoid tension on wound. 2. VAC changed by me today. I will change again Friday - please have supplies at bedside for dressing change by MD 3. ID consult appreciated. PICC line ordered for Friday before discharge. 4. Pt already has home VAC machine at home. Will need VNS set up for Friday/ Friday/Friday VAC changes.
[2017-03-20] MEDS ORDERED: PT OWN MED DRAWER 7, Y5N ONE ×5 (01:08→21:07)
[2017-03-20] MEDS: PIPERACILLIN/TAZOB 4.5 GM 4.5 GM in DEXTROSE 5%-WATER - 100 ML IVPB SCH ×2 (01:10→10:36)
[2017-03-20] MEDS: VANCOMYCIN 1,000 MG in DEXTROSE 5%-WATER - 250 ML IVPB SCH ×2 (03:17→14:36)
[2017-03-20] MEDS: ACETAMINOPHEN 325 MG TABLET (FP) PO SCH ×3 (03:20→16:30)
[2017-03-20] MEDS: traMADol HCL 50 MG TABLET PO SCH ×4 (03:20→22:02)
[2017-03-20] MEDS: metFORMIN HCL 500 MG TABLET (FP) PO SCH (06:34)
[2017-03-20] MEDS: PANTOPRAZOLE 40 MG TABLET (FP) PO SCH (10:23)
[2017-03-20] MEDS: GABAPENTIN 300 MG CAPSULE (FP) PO SCH (10:23)
[2017-03-20] MEDS: ASPIRIN 325 MG ENTERIC COATED TABLET (FP) PO SCH (10:23)
[2017-03-20] MEDS: MULTIVITAMINS (DAILY MVI) TABLET (FP) PO SCH (10:23)
[2017-03-20] MEDS: SENNOSIDES/DOCUSATE COMBO (SENNA PLUS) TABLET (UD) PO SCH ×2 (10:23→22:04)
[2017-03-20] MEDS: LOSARTAN POTASSIUM 50 MG TABLET (FP) PO SCH (10:24)
[2017-03-20] MEDS: CELECOXIB 200 MG CAPSULE PO SCH ×2 (10:25→22:03)
[2017-03-20] MEDS: ASCORBIC ACID 500 MG TABLET (FP) PO SCH (10:28)
[2017-03-20] MEDS: oxyCODONE HCL 10 MG SUSTAINED ACTING TABLET PO SCH ×2 (10:30→22:03)
[2017-03-20] MEDS: VANCOMYCIN 1,250 MG in DEXTROSE 5%-WATER - 250 ML IVPB SCH (11:22)
--- NOTE | 2017-03-20 15:16 | PN ---
Progress Note (short form) - Note Progress Note: ID AFebrile Selected Entries 03/20/17 15:08 Temperature 98.0 F Pulse Rate 84 Respiratory 18 Rate Blood Pressure 116/78 KNEE with VAC dressing Microbiology 03/17/17 12:20 Tissue-Other Gram Stain - Final 03/17/17 12:20 Tissue-Other Anaerobic Culture - Final Enterococcus Faecalis NO ANAEROBES WERE ISOLATED 03/17/17 12:20 Knee - Left Gram Stain - Final 03/17/17 12:20 Knee - Left Wound Culture - Final Enterococcus Faecalis Laboratory Tests 03/19/17 03/19/17 03/19/17 06:30 06:30 11:50 WBC 7.5 Hct 29.0 L Plt Count 220 BUN 24 H D Creatinine 1.0 D Vancomycin Pre-Dose 18.891 H* Assesment Left knee infection Enteroccoci Plan Ampicillin 2 grs q 4 H ro PCN 4 mill q 4 H Junito RYAN
[2017-03-20] MEDS: AMPICILLIN - 2 GM in SODIUM CHLORIDE 100 ML IVPB SCH ×3 (17:27→22:02)
[2017-03-21] MEDS: AMPICILLIN - 2 GM in SODIUM CHLORIDE 100 ML IVPB SCH ×5 (02:08→17:29)
[2017-03-21] MEDS: traMADol HCL 50 MG TABLET PO SCH ×3 (03:10→14:29)
--- NOTE | 2017-03-21 08:39 | PN ---
Progress Note, Physician Chief Complaint: ID Currently on Ampicillin No complaints - Current Medication List Current Medications: Active Medications Al Hydroxide/Mg Hydroxide (Mylanta Oral Suspension -) 30 ml PO Q4H PRN PRN Reason: DYSPEPSIA Ascorbic Acid (Vitamin C -) 500 mg PO DAILY [facility] Last Admin: 03/20/17 10:28 Dose: 500 mg Aspirin (Ecotrin -) 325 mg PO DAILY [facility] Last Admin: 03/20/17 10:23 Dose: 325 mg Celecoxib (Celebrex -) 200 mg PO BID [facility] Last Admin: 03/20/17 22:03 Dose: 200 mg IV Flush (Picc Line Flush) 8 ml IVPUSH PRN PRN PRN Reason: Protocol Ampicillin Sodium 2 gm/ Sodium (Chloride) 100 mls @ 200 mls/hr IVPB Q4H-IV [facility] Last Admin: 03/21/17 06:06 Dose: 200 mls/hr Losartan Potassium (Cozaar -) 50 mg PO DAILY [facility] Last Admin: 03/20/17 10:24 Dose: 50 mg Magnesium Hydroxide (Milk Of Magnesia -) 30 ml PO PRN PRN PRN Reason: CONSTIPATION Last Admin: 03/18/17 16:42 Dose: 30 ml Metformin HCl (Glucophage -) 500 mg PO DAILY@0700 [facility] Last Admin: 03/20/17 06:34 Dose: 500 mg Multivitamins/Minerals/Vitamin C (Tab-A-Vit -) 1 tab PO DAILY [facility] Last Admin: 03/20/17 10:23 Dose: 1 tab Ondansetron HCl (Zofran Injection) 4 mg IVPUSH Q6H PRN PRN Reason: NAUSEA Oxycodone HCl (Oxycontin -) 10 mg PO BID [facility] Last Admin: 03/20/17 22:03 Dose: Not Given Pantoprazole Sodium (Protonix -) 40 mg PO DAILY [facility] Last Admin: 03/20/17 10:23 Dose: 40 mg Senna/Docusate Sodium (Pericolace -) 1 tablet PO BID [facility] Last Admin: 03/20/17 22:04 Dose: 1 tablet Tramadol HCl (Ultram -) 50 mg PO Q6H [facility] Last Admin: 03/21/17 08:10 Dose: 50 mg - Objective Vital Signs: Vital Signs Temperature 98.2 F 03/21/17 07:30 Pulse Rate 79 03/21/17 07:30 Respiratory Rate 18 03/21/17 07:30 Blood Pressure 131/62 03/21/17 07:30 O2 Sat by Pulse Oximetry (%) 97 03/20/17 09:00 Extremities: Yes: Other (VAC dressing knee) Labs: CBC, BMP 03/19/17 06:30 03/19/17 06:30 Assessment/Plan Microbiology 03/17/17 12:20 Tissue-Other Gram Stain - Final 03/17/17 12:20 Tissue-Other Anaerobic Culture - Final Enterococcus Faecalis NO ANAEROBES WERE ISOLATED 03/17/17 12:20 Knee - Left Gram Stain - Final 03/17/17 12:20 Knee - Left Wound Culture - Final Enterococcus Faecalis 03/18/17 12:55 Blood - Peripheral Venous Blood Culture - Preliminary NO GROWTH OBTAINED AFTER 48 HOURS, INCUBATION TO CONTINUE FOR 3 DAYS. 03/18/17 12:53 Blood - Peripheral Venous Blood Culture - Preliminary NO GROWTH OBTAINED AFTER 48 HOURS, INCUBATION TO CONTINUE FOR 3 DAYS. Laboratory Tests 03/18/17 03/18/17 03/19/17 12:53 12:53 06:30 WBC 7.5 Hgb 9.3 L Hct 29.0 L Plt Count 220 ESR 42 H C-Reactive Protein 7.6 H D Assessment Infected knee Plan PICC Continue Ampicillin Insurance approval being reviewed Junito RYAN
[2017-03-21] MEDS: metFORMIN HCL 500 MG TABLET (FP) PO SCH (09:42)
[2017-03-21] MEDS: ASPIRIN 325 MG ENTERIC COATED TABLET (FP) PO SCH (09:49)
[2017-03-21] MEDS: MULTIVITAMINS (DAILY MVI) TABLET (FP) PO SCH (09:49)
[2017-03-21] MEDS: PANTOPRAZOLE 40 MG TABLET (FP) PO SCH (09:49)
[2017-03-21] MEDS: ASCORBIC ACID 500 MG TABLET (FP) PO SCH (09:49)
[2017-03-21] MEDS: LOSARTAN POTASSIUM 50 MG TABLET (FP) PO SCH (09:49)
[2017-03-21] MEDS: oxyCODONE HCL 10 MG SUSTAINED ACTING TABLET PO SCH (09:50)
[2017-03-21] MEDS: SENNOSIDES/DOCUSATE COMBO (SENNA PLUS) TABLET (UD) PO SCH (09:51)
[2017-03-21] MEDS ORDERED: PT OWN MED DRAWER 7, Y5N ONE (09:52)
[2017-03-21] MEDS: CELECOXIB 200 MG CAPSULE PO SCH (09:54)
[2017-03-21 17:39] VITALS: BP 128/69; PULSE 79; TEMP 98
== END 2017-03-21 19:25 | disposition home health service (06) | DRG 302 ==
LOC: JSAMEDAYSX 09:10 → J8W 19:38
PROVIDERS: ADMIT Student in an Organized Health Care Education/Training Program; ATTEND Student in an Organized Health Care Education/Training Program
PROC: 0SRD06Z Replacement of Left Knee Joint with Oxidized Zirconium on Polyethylene Synthetic Substitute, Open Approach (ICD-10-PCS; 2017-03-17)
PROC: 0JDM0ZZ Extraction of Left Upper Leg Subcutaneous Tissue and Fascia, Open Approach (ICD-10-PCS; 2017-03-17)
PROC: 0SPD0JZ Removal of Synthetic Substitute from Left Knee Joint, Open Approach (ICD-10-PCS; principal; 2017-03-17 10:30)
PROC: 05H533Z Insertion of Infusion Device into Right Subclavian Vein, Percutaneous Approach (ICD-10-PCS; 2017-03-21)
PROC: B516ZZA Fluoroscopy of Right Subclavian Vein, Guidance (ICD-10-PCS; 2017-03-21)
DX: T84.54XA Infection and inflammatory reaction due to internal left knee prosthesis, initial encounter (principal); E11.9 Type 2 diabetes mellitus without complications; B95.2 Enterococcus as the cause of diseases classified elsewhere; T81.31XD Disruption of external operation (surgical) wound, not elsewhere classified, subsequent encounter; Y83.4 Other reconstructive surgery as the cause of abnormal reaction of the patient, or of later complication, without mention of misadventure at the time of the procedure; I10 Essential (primary) hypertension; K21.9 Gastro-esophageal reflux disease without esophagitis; Z79.84 Long term (current) use of oral hypoglycemic drugs; E66.9 Obesity, unspecified; Z68.39 Body mass index [BMI] 39.0-39.9, adult
CPT/HCPCS: 36415; 36569; 73560-TC-LT; 77001-TC; 80048; 85027; 85651; 86140; 87040; 87070; 87075; 87186; 87205; 88300-TC; 94760; 97116-GP; 97161-GP; C1751; G0480

== ENCOUNTER 2017-04-23 11:43 | Inpatient (IN) | payer OTHER ==
[2017-04-23 11:55] VITALS: BMI 39.0
--- NOTE | 2017-04-23 13:46 | PDOC ---
History of Present Illness - General Chief Complaint: Wound Stated Complaint: SENT BY DR - History of Present Illness Initial Comments: Ms Aaron is a 72yo F with hx of L TKR in 01/16/17 complicated by subsequent wound dehiscence s/p mechanical fall to knee. She was readmitted and subsequently had an irrigation and debridement on 03/17/17. Operative cultures grew E. faecalis sensitive to PCN. Patient was discharged on IV Ampicillin 2g Q4H for 6 weeks w/ a wound vac. This is week 5. One week prior, the wound vac was removed and stitches were taken out. Since then, the patient and family indicate that the wound has opened up, and its draining purulent material. Patient was just seen by Dr Wild (ID). In office, she had low grade temp and CRP >100. He was concerned for non-healing wound infection. Patient denies systemic signs such as fevers, chills, malaise. Denies CP, SOB. PMD - Dr Sabino Trivedi ([facility]) Ortho - Dr. Calvin Jara ([facility]) SH - Denies Alcohol, Drugs, Smoking Past History - Past Medical History Allergies/Adverse Reactions: Allergies Allergy/AdvReac Type Severity Reaction Status Date / Time No Known Allergies Allergy Verified 04/23/17 11:49 Home Medications: Ambulatory Orders Losartan Potassium 50 mg PO DAILY 01/14/17 Metformin HCl 500 mg PO DAILY 01/14/17 Multivitamins [Multivit ([facility] Formulary)] 1 tab PO DAILY tab 01/17/17 Ascorbic Acid [Vitamin C -] 500 mg PO DAILY 03/14/17 Aspirin Coated [Ecotrin -] 325 mg PO DAILY tablet. 03/21/17 Celecoxib [CeleBREX -] 200 mg PO BID #60 tab 03/21/17 Oxycodone HCl/Acetaminophen [Percocet 5-325 mg Tablet] 1 - 2 tab PO Q4H #60 tablet MDD 8 03/21/17 Pantoprazole Sodium [Protonix -] 40 mg PO DAILY #40 tab 03/21/17 Sennosides/Docusate Sodium [Pericolace -] 1 tablet PO BID tablet 03/21/17 Tramadol HCl [Ultram -] 50 mg PO Q4H PRN #60 tablet MDD 6 03/21/17 Anemia: No Asthma: No Cancer: No Cardiac Disorders: Yes (heart arrythmias) CVA: No COPD: No CHF: No Dementia: No Diabetes: Yes GI Disorders: No Disorders: No HTN: Yes Hypercholesterolemia: No Liver Disease: No Seizures: No Thyroid Disease: No - Surgical History Abdominal Surgery: No Appendectomy: No Cardiac Surgery: No Cholecystectomy: No Lung Surgery: No Neurologic Surgery: No Orthopedic Surgery: Yes (RTKR left knee replacement 01/14) - Suicide/Smoking/Psychosocial Hx Smoking History: Never smoked Have you smoked in the past 12 months: No Number of Cigarettes Smoked Daily: 0 Hx Alcohol Use: No Drug/Substance Use Hx: No Substance Use Type: None Hx Substance Use Treatment: No *Physical Exam - Vital Signs Last Vital Signs Temp Pulse Resp BP Pulse Ox 99.2 F 98 H 18 159/56 96 04/23/17 11:49 04/23/17 11:49 04/23/17 11:49 04/23/17 11:49 04/23/17 11:49 - Physical Exam Comments: GEN: AAOx3, NAD, Lying comrotably HEENT: PERRLA, EOMi CV: S1, S2, RRR LUNG: CTABL ABD: Soft, NT, ND, normoactive BS MSK: L knee - one small open midline incision w/o drainage; one larger ~5cm open incision inferior, purulent discharge, surrounding erythema NEURO: CN 2-12 intact Heart Score/ECG Review - ECG Intrepretation Comment:: NSR @ 95bpm w/ LBBB, no MEAGHAN. ED Treatment Course - LABORATORY CBC & Chemistry Diagram: 04/23/17 14:20 04/23/17 14:20 Medical Decision Making - Medical Decision Making 72yo F w/ hx of L TKR in December complicated by wound dehiscence, subsequent washout in February. Consistent w/ infected L knee prosthesis that failed parenteral antibiotics. Wound cx previously grew E.faecalis. Call placed to Dr. Calvin Jara (Ortho) and Dr. Wild. Plan is for inpatient admission and subsequent L knee prosthetic removal in the OR followed by insertion of spacer. Patient will hopefully be discharged home on antibiotics, and later have new prosthetic placed at a tertiary care facility in [facility]. For now , Dr. Jara would prefer to keep patient on IV Ampicillin 2g Q4H so as to collect proper cultures in OR. We will get basic and pre-op labs. Consult placed for Dr. Wild and Dr Jara. PCP is outside facility, plan for admission to hospitalist service 04/23/17 15:55 Labwork returned, wnl, normal WBC. Microblog sent to [facility]. *DC/Admit/Observation/Transfer Diagnosis at time of Disposition: Infection of prosthetic left knee joint Qualifiers: Encounter type: subsequent encounter Qualified Code(s): T84.54XD - Infection and inflammatory reaction due to internal left knee prosthesis, subsequent encounter - Discharge Dispostion Admit: Yes - Referrals Referrals: Louis Wild MD [Primary Care Provider] - - Patient Instructions - Post Discharge Activity
--- NOTE | 2017-04-23 14:26 | PDOC ---
Attending Attestation - Resident Resident Name: Ephraim Duque - ED Attending Attestation I have performed the following: I have examined & evaluated the patient, The case was reviewed & discussed with the resident, I agree w/resident's findings & plan, Exceptions are as noted - HPI HPI: 04/23/17 14:22 "The patient is a 72 year old female, with a significant past medical history of left TKR (december 2016 complicated with wound dehiscence and debridement s/p fall), who presents to the emergency department for evaluation of a left wound infection. The patient states the wound is increasing in size and appears yellow. She reports yellow drainage from the wound site. She is on 5th week of IV ampicillin. She denies chest pain, shortness of breath, headache and dizziness. She denies fever, chills, nausea, vomit, diarrhea and constipation. She denies dysuria, frequency, urgency and hematuria. " - Physicial Exam PE: 04/23/17 14:48 "GENERAL: Awake, alert, and fully oriented, in no acute distress HEAD: No signs of trauma EYES: PERRLA, EOMI, sclera anicteric, conjunctiva clear ENT: Auricles normal inspection, hearing grossly normal, nares patent, oropharynx clear without exudates. Moist mucosa NECK: Nontender, no stepoffs, Normal ROM, supple, no lymphadenopathy, JVD, or masses LUNGS: Breath sounds equal, clear to auscultation bilaterally. No wheezes, and no crackles HEART: Regular rate and rhythm, normal S1 and S2, no murmurs, rubs or gallops ABDOMEN: Soft, nontender, normoactive bowel sounds. No guarding, no rebound. No masses EXTREMITIES: L knee with surgical wound dehiscence + erythema and purulent drainage, ROM limited 2/2 pain NEUROLOGICAL: Cranial nerves II through XII intact. 5/5 strength and sensation in all extremities, Normal speech, normal gait SKIN: Warm, Dry, normal turgor, no rashes or lesions noted. " - Medical Decision Making 04/23/17 14:50 72 F with infection of knee prosthesis. - Labs - ortho c/s - ID c/s - Admit for IV abx
[2017-04-23 15:02] LABS: ALBUMIN 2.7 g/dl (3.4-5.0); ANION GAP 10 (8-16); BLOOD UREA NITROGEN 8 mg/dL (7-18); CALCIUM 8.6 mg/dL (8.5-10.1); CHLORIDE 102 mmol/L (98-107); CO2 28 mmol/L (21-32); CREATININE 0.5 mg/dL (0.55-1.02); GLUCOSE,RANDOM 107 mg/dL (74-106); POTASSIUM 3.6 mmol/L (3.5-5.1); SGOT/AST 27 U/L (15-37); SGPT/ALT 22 U/L (12-78); SODIUM 140 mmol/L (136-145)
[2017-04-23 15:04] LABS: ALK PHOS 123 U/L (45-117); BILIRUBIN,TOTAL 0.3 mg/dL (0.2-1.0); TOT PROT 7.2 g/dl (6.4-8.2)
[2017-04-23 15:08] LABS: BASO % 0.7 % (0-2.0); EOS % 1.2 % (0-4.5); HEMATOCRIT 35.9 % (32.4-45.2); HEMOGLOBIN 11.1 GM/dL (10.7-15.3); INR 1.24 (0.82-1.09); LYMPH % 21.1 % (8-40); MCH 24.3 pg (25.7-33.7); MEAN CELL VOLUME 78.1 fl (80-96); MEAN PLT VOLUME 7.8 fl (7.5-11.1); PLATELET COUNT 443 K/MM3 (134-434); RBC 4.59 M/mm3 (3.60-5.2); RDW 15.5 % (11.6-15.6); WHITE BLOOD COUNT 8.4 K/mm3 (4.0-10.0)
[2017-04-23 15:11] LABS: ACTIVATED PTT 29.8 SECONDS (26.9-34.4)
--- NOTE | 2017-04-23 15:59 | EKG ---
Test Reason : Blood Pressure : / mmHG Vent. Rate : 095 BPM Atrial Rate : 095 BPM P-R Int : 154 ms QRS Dur : 140 ms QT Int : 396 ms P-R-T Axes : 043 -39 098 degrees QTc Int : 497 ms NORMAL SINUS RHYTHM POSSIBLE LEFT ATRIAL ENLARGEMENT LEFT AXIS DEVIATION LEFT BUNDLE BRANCH BLOCK ABNORMAL ECG NO PREVIOUS ECGS AVAILABLE Confirmed by PENG CALVERT MD ([id number]) on 04/23/2017 3:59:10 PM Referred By: Confirmed By:PENG CALVERT MD
[2017-04-23 17:10] LABS: URINE APPEARANCE CLEAR; URINE BILIRUBIN NEGATIVE (NEGATIVE); URINE BLOOD NEGATIVE (NEGATIVE); URINE COLOR LTYELLOW; URINE GLUCOSE (UA) NEGATIVE (NEGATIVE); URINE KETONE 1+ (NEGATIVE); URINE LEUK ESTERASE NEGATIVE (NEGATIVE); URINE NITRITE NEGATIVE (NEGATIVE); URINE PROTEIN NEGATIVE (NEGATIVE); URINE UROBILINOGEN NEGATIVE mg/dL (0.2-1.0)
--- NOTE | 2017-04-23 17:57 | HP ---
HISTORY OF PRESENT ILLNESS: Patient is a 72 yo F with a PMHx of HTN, pre- diabetes, s/p R TKR (05/17), s/p L TKR (01/16/17), fell on her L knee 2 days after her L TKR surgery and it was complicated by wound dehiscence. She was readmitted on 03/17 and had an irrigation and debridement to the L knee. She was sent home on 6 weeks of IV Ampicillin via PICC after positive cultures for E. Feacalis. She is currently on the 5th week of treatment. Patient's pain worsened and the wound opened up with purulent discharge. She states she saw Dr. Wild and was found to have a low grade temp and CRP > [address] Jara (ortho) was called in ED and plan is to remove prosthetic L knee followed by insertion of spacer and will be discharged on ABx. She denies, fevers, chills, chest pain, dizziness, nausea, vomiting, diarrhea. Recent Travel: n/a PAST MEDICAL HISTORY: HTN, pre-diabetes PAST SURGICAL HISTORY: Social History: Smoking: denies Alcohol: denies Drugs: denies Family History: Allergies No Known Allergies Allergy (Verified 04/23/17 11:49) HOME MEDICATIONS: Home Medications Medication Instructions Recorded Losartan Potassium 50 mg PO DAILY 01/14/17 Metformin HCl 500 mg PO DAILY 01/14/17 Multivitamins [Multivit ([facility] 1 tab PO DAILY tab 01/17/17 Formulary)] Ascorbic Acid [Vitamin C -] 500 mg PO DAILY 03/14/17 Aspirin Coated [Ecotrin -] 325 mg PO DAILY tablet. 03/21/17 Celecoxib [CeleBREX -] 200 mg PO BID #60 tab 03/21/17 Oxycodone HCl/Acetaminophen 1 - 2 tab PO Q4H #60 tablet MDD 8 03/21/17 [Percocet 5-325 mg Tablet] Pantoprazole Sodium [Protonix -] 40 mg PO DAILY #40 tab 03/21/17 Sennosides/Docusate Sodium 1 tablet PO BID tablet 03/21/17 [Pericolace -] Tramadol HCl [Ultram -] 50 mg PO Q4H PRN #60 tablet MDD 6 03/21/17 REVIEW OF SYSTEMS CONSTITUTIONAL: Absent: fever, chills, diaphoresis, generalized weakness, malaise, loss of appetite, weight change HEENT: Absent: rhinorrhea, nasal congestion, throat pain, throat swelling, difficulty swallowing, mouth swelling, ear pain, eye pain, visual changes CARDIOVASCULAR: Absent: chest pain, syncope, palpitations, irregular heart rate, lightheadedness , peripheral edema RESPIRATORY: Absent: cough, shortness of breath, dyspnea with exertion, orthopnea, wheezing, stridor, hemoptysis GASTROINTESTINAL: Absent: abdominal pain, abdominal distension, nausea, vomiting, diarrhea, constipation, melena, hematochezia GENITOURINARY: Absent: dysuria, frequency, urgency, hesitancy, hematuria, flank pain, genital pain MUSCULOSKELETAL: Absent: myalgia, arthralgia, joint swelling, back pain, neck pain SKIN: Absent: rash, itching, pallor HEMATOLOGIC/IMMUNOLOGIC: Absent: easy bleeding, easy bruising, lymphadenopathy, frequent infections ENDOCRINE: Absent: unexplained weight gain, unexplained weight loss, heat intolerance, cold intolerance NEUROLOGIC: Absent: headache, focal weakness or paresthesias, dizziness, unsteady gait, seizure, mental status changes, bladder or bowel incontinence PSYCHIATRIC: Absent: anxiety, depression, suicidal or homicidal ideation, hallucinations. PHYSICAL EXAMINATION Vital Signs - 24 hr 04/23/17 04/23/17 11:49 15:56 Temperature 99.2 F 98.8 F Pulse Rate 98 H Pulse Rate [ 76 Left Apical] Respiratory 18 16 Rate Blood Pressure 159/56 Blood Pressure 166/86 [Left Arm] O2 Sat by Pulse 96 96 Oximetry (%) GENERAL: Awake, alert, and fully oriented, in no acute distress. HEAD: Normal with no signs of trauma. EYES: Pupils equal, round and reactive to light, extraocular movements intact EARS, NOSE, THROAT: oropharynx clear without exudates. Moist mucous membranes. NECK: supple without lymphadenopathy LUNGS: Breath sounds equal, clear to auscultation bilaterally. No wheezes, and no crackles. HEART: Regular rate and rhythm, normal S1 and S2 without murmur, rub or gallop. ABDOMEN: Soft, nontender, not distended, normoactive bowel sounds. MUSCULOSKELETAL: Left knee with small 1 inch wound, with no drainage. Approx 3 inch draining, purulent wound with erythema extending to foot. Left LLE with Limited range of motion, unable to bend. UPPER EXTREMITIES: 2+ pulses, warm, well-perfused. No cyanosis. No clubbing. No peripheral edema. LOWER EXTREMITIES: 2+ pulses, warm, well-perfused. 1+ Edema LLE NEUROLOGICAL: Cranial nerves II-XII intact. Normal speech. PSYCHIATRIC: Cooperative. Good eye contact. Appropriate mood and affect. Laboratory Results - last 24 hr 04/23/17 04/23/17 04/23/17 13:53 14:20 14:20 WBC 8.4 RBC 4.59 D Hgb 11.1 D Hct 35.9 D MCV 78.1 L D MCH 24.3 L MCHC 31.0 L RDW 15.5 D Plt Count 443 H D MPV 7.8 Neutrophils % 69.0 Lymphocytes % 21.1 Monocytes % 8.0 Eosinophils % 1.2 Basophils % 0.7 PT with INR 14.00 H INR 1.24 H PTT (Actin FS) 29.8 Sodium Potassium Chloride Carbon Dioxide Anion Gap BUN Creatinine Creat Clearance w eGFR Random Glucose Calcium Total Bilirubin AST ALT Alkaline Phosphatase Total Protein Albumin Urine Color Urine Appearance Urine pH Ur Specific [place] Urine Protein Urine Glucose (UA) Urine Ketones Urine Blood Urine Nitrite Urine Bilirubin Urine Urobilinogen Ur Leukocyte Esterase Blood Type A POSITIVE Antibody Screen Negative 04/23/17 04/23/17 14:20 16:00 WBC RBC Hgb Hct MCV MCH MCHC RDW Plt Count MPV Neutrophils % Lymphocytes % Monocytes % Eosinophils % Basophils % PT with INR INR PTT (Actin FS) Sodium 140 Potassium 3.6 Chloride 102 Carbon Dioxide 28 Anion Gap 10 BUN 8 Creatinine 0.5 L Creat Clearance w eGFR > 60 Random Glucose 107 H Calcium 8.6 Total Bilirubin 0.3 AST 27 ALT 22 Alkaline Phosphatase 123 H Total Protein 7.2 Albumin 2.7 L Urine Color Ltyellow Urine Appearance Clear Urine pH 8.0 Ur Specific [place] 1.015 Urine Protein Negative Urine Glucose (UA) Negative Urine Ketones 1+ H Urine Blood Negative Urine Nitrite Negative Urine Bilirubin Negative Urine Urobilinogen Negative Ur Leukocyte Esterase Negative Blood Type Antibody Screen ASSESSMENT/PLAN: Patient is a 72 yo F with a PMHx of HTN, pre-diabetes, s/p R TKR (05/17), s/p L TKR (01/16/17), presents after L TKR on 01/16 complicated by wound dehiscence s/ p mechanical fall to knee. #Left Septic Knee Joint secondary to wound Dehiscence -Ortho on board (Dr. Jara)- plan for prosthetic knee removal. Low risk for intermediate risk surgery METS 4. -ID consulted -Start IV Abx, Ampicillin 2gm Q4h per ID -Morphine 2mg Q4H -Fu cultures -FU CXR -Fu labs, ESR, CRP -NPO after midnight #Constipation -likely secondary to opiate use -BM today -Miralax #HTN/CAD -cont. Losartan 50mg -Held ASA 325mg due to possible surgery tomorrow. #Pre-Diabetes -Last A1c 6.1 -Held Metformin -ISS -BGM #FEN -No fluids -WNL -diabetic diet, NPO after midnight #PPx -SCD's pending surgery Visit type - Emergency Visit Emergency Visit: Yes ED Registration Date: 04/23/17 Care time: The patient presented to the Emergency Department on the above date and was hospitalized for further evaluation of their emergent condition. - New Patient This patient is new to me today: Yes Date on this admission: 04/23/17 - Critical Care Critical Care patient: No
[2017-04-23] MEDS ORDERED: traMADol HCL 50 MG TABLET PO PRN (18:15)
--- NOTE | 2017-04-23 18:19 | PN ---
Teaching Attending Note Name of Resident: Ofe Landeros ATTENDING PHYSICIAN STATEMENT I saw and evaluated the patient. I reviewed the resident's note and discussed the case with the resident. I agree with the resident's findings and plan as documented. SUBJECTIVE:72yo F wtih PMH DM and HTN presented to the ER after instructed from her visit to the wound clinic due to progressively worsening L knee wound that is becoming more dehisced with purulent drainage. Pt underwent TKR on 01/16/17. she fell on 03/16 which caused the wound to open. she required knee irrigation and debridement on 03/17/17. Wound grew E Faecalis, PICC line was placed and sent out on Augmentin she is currently on week 5 of 6. States the wound progressively worsened and with more copious drainage. reports low grade fever at wound center. pain no longer controlled with percocet. denies CP, SOB, chills , N/V/C/D. no complications with anesthesia with previous surgeries. able to complete small tasks without CP or dyspnea. last stress test was 3 years ago and reports it as normal last BM was this AM. but reports straining on defecation OBJECTIVE: Last Vital Signs Temp Pulse Resp BP Pulse Ox 98.8 F 76 16 166/86 96 04/23/17 15:56 04/23/17 15:56 04/23/17 15:56 04/23/17 15:56 04/23/17 15:56 General NAD CV S1 S2 RRR Lungs CTA B/L no wheezing/rales/rhonchi Abdomen soft NT/ND, obese Extremities B/L non pitting edema. L knee is wrapped in bandage which is c/d/i. refused removal of bandage as its painful with wrapping and unwrapping. pulses 2 +. RUE with +PICC line. ASSESSMENT AND PLAN: 72yo F wtih PMH DM and HTN presented to the ER without L septic knee which failed outpatient IV therapy 1. Septic knee- Medicine admission. NPO tonight for hardware removal in the AM with total washout and abx spacer placement. will cont ampicillin 2g for now. will need to obtain Cx intra-operatively for appropriate abx selection. pt is low risk for intermediate risk surgery METS 4. Check ESR/CRP. will start morphine for pain. complete bed rest for now. Ortho and ID on the case already. further management per ortho 2. Constipation-likely exacerbated by opiates. reports small BM today. start miralax and stool softeners. if does not want regular BM can consider relistor 3. DM- A1c 6.1 on last admission. will hold oral agents. diabetic diet. iss. bgm 4. HTN- slightly above goal. likely due to pain. will cont home medications. consider increasing if remains elevated and pain controlled 5. DVT- on full dose asa for DVT ppx s/p knee replacement. will hold for now with pending surgery. place on hep sq. 6. spoke with family present at bedside. all questions answered. verbalized understanding and agreement with plan.
[2017-04-23] MEDS ORDERED: ACETAMINOPHEN 325 MG TABLET (FP) PO PRN ×2 (18:20→18:23)
[2017-04-23] MEDS ORDERED: oxyCODONE HCL 5 MG TABLET PO PRN (18:22)
[2017-04-23] MEDS ORDERED: morphine CARPU-JECT 4 MG/1 ML DISP.SYRIN IVPUSH PRN ×2 (18:27→18:28)
[2017-04-23] MEDS ORDERED: CELECOXIB 200 MG CAPSULE PO SCH (22:00)
[2017-04-23] MEDS: INSULIN SLIDING SCALE (NOVOLOG) 1 VIAL SQ SCH (22:43)
[2017-04-23] MEDS: SENNOSIDES/DOCUSATE COMBO (SENNA PLUS) TABLET (UD) PO SCH (22:43)
--- NOTE | 2017-04-23 22:53 | CONSULT ---
Consult - text type - Consultation Consultation Note: Orthopedics Pt seen and examined. Full consult to follow. NSIV ordered for overnight while NPO Oxycontin 10mg Q12h with sips of water tonight and at 10AM. Plan for surgery tomorrow afternoon; OR time pending.
[2017-04-23] MEDS: oxyCODONE HCL 10 MG SUSTAINED ACTING TABLET PO SCH (23:55)
[2017-04-23] MEDS: SODIUM CHLORIDE 1,000 ML IV SCH (23:55)
[2017-04-24] MEDS: SODIUM CHLORIDE 1,000 ML IV SCH ×2 (06:59→14:47)
[2017-04-24] MEDS: INSULIN SLIDING SCALE (NOVOLOG) 1 VIAL SQ SCH ×3 (07:06→16:46)
[2017-04-24 07:56] LABS: BASO % 1.1 % (0-2.0); EOS % 1.8 % (0-4.5); HEMATOCRIT 31.3 % (32.4-45.2); HEMOGLOBIN 9.9 GM/dL (10.7-15.3); LYMPH % 25.3 % (8-40); MCH 24.4 pg (25.7-33.7); MCHC 31.7 g/dl (32.0-36.0); MEAN PLT VOLUME 7.8 fl (7.5-11.1); MONO % 8.7 % (3.8-10.2); NEUT % 63.1 % (42.8-82.8); PLATELET COUNT 399 K/MM3 (134-434); RBC 4.07 M/mm3 (3.60-5.2); RDW 15.7 % (11.6-15.6); WHITE BLOOD COUNT 6.3 K/mm3 (4.0-10.0)
[2017-04-24 08:23] LABS: INR 1.24 (0.82-1.09)
[2017-04-24 08:32] LABS: ALBUMIN 2.2 g/dl (3.4-5.0); ALK PHOS 100 U/L (45-117); ANION GAP 12 (8-16); BILIRUBIN,TOTAL 0.3 mg/dL (0.2-1.0); BLOOD UREA NITROGEN 6 mg/dL (7-18); CALCIUM 7.9 mg/dL (8.5-10.1); CHLORIDE 106 mmol/L (98-107); CO2 25 mmol/L (21-32); CREATININE 0.6 mg/dL (0.55-1.02); GLUCOSE,RANDOM 103 mg/dL (74-106); MAGNESIUM 2.1 mg/dL (1.8-2.4); PHOSPHOROUS 3.1 mg/dL (2.5-4.9); POTASSIUM 3.7 mmol/L (3.5-5.1); SGOT/AST 23 U/L (15-37); SGPT/ALT 17 U/L (12-78); SODIUM 143 mmol/L (136-145); TOT PROT 5.9 g/dl (6.4-8.2)
[2017-04-24] MEDS: LOSARTAN POTASSIUM 50 MG TABLET (FP) PO SCH (09:24)
[2017-04-24] MEDS ORDERED: ASPIRIN 325 MG ENTERIC COATED TABLET (FP) PO SCH (10:00)
[2017-04-24] MEDS: SENNOSIDES/DOCUSATE COMBO (SENNA PLUS) TABLET (UD) PO SCH (11:02)
[2017-04-24] MEDS: POLYETHYLENE GLYCOL 3350 119 GM BTL PO SCH (11:02)
[2017-04-24] MEDS: oxyCODONE HCL 10 MG SUSTAINED ACTING TABLET PO SCH (11:02)
[2017-04-24] MEDS: ASCORBIC ACID 500 MG TABLET (FP) PO SCH (11:03)
[2017-04-24] MEDS: MULTIVITAMINS (DAILY MVI) TABLET (FP) PO SCH (11:03)
[2017-04-24] MEDS: PANTOPRAZOLE 40 MG TABLET (FP) PO SCH (11:03)
--- NOTE | 2017-04-24 11:05 | PN ---
Progress Note, Physician Chief Complaint: ID 72 year old female Icelandic female seen in my office yesterday and referred to the hospital for infected left knee prosthesis. Had been on IV ampicillin as after recent washout surgery cultures positive for E Faecalis. Seen at request of Dr Jara and family yesterday at which she had low grade fever 99.5 with a gapiong open left knee wound with purulent drainage and redness. I spoke to Dr Jara and advised immediate hospitalization for removal of the prosthesis. Borderline diabetes though on no meds. - Current Medication List Current Medications: Active Medications Ascorbic Acid (Vitamin C -) 500 mg PO DAILY [facility] Sodium Chloride (Normal Saline -) 1,000 mls @ 125 mls/hr IV ASDIR [facility] Last Admin: 04/24/17 06:59 Dose: 125 mls/hr Insulin Aspart (Novolog Vial Sliding Scale -) 1 vial SQ ACHS [facility] PRN Reason: Protocol Last Admin: 04/24/17 07:06 Dose: Not Given Losartan Potassium (Cozaar -) 50 mg PO DAILY [facility] Last Admin: 04/24/17 09:24 Dose: 50 mg Morphine Sulfate (Morphine Injection -) 2 mg IVPUSH Q4H PRN PRN Reason: PAIN LEVEL 6-10 Multivitamins/Minerals/Vitamin C (Tab-A-Vit -) 1 tab PO DAILY [facility] Oxycodone HCl (Oxycontin -) 10 mg PO BID [facility] Last Admin: 04/23/17 23:55 Dose: Not Given Pantoprazole Sodium (Protonix -) 40 mg PO DAILY [facility] Polyethylene Glycol (Miralax (For Daily Use) -) 17 gm PO DAILY [facility] Senna/Docusate Sodium (Pericolace -) 1 tablet PO BID [facility] Last Admin: 04/23/17 22:43 Dose: 1 tablet - Objective Vital Signs: Vital Signs Temperature 98.2 F 04/24/17 09:30 Pulse Rate 97 H 04/24/17 09:30 Respiratory Rate 20 04/24/17 09:30 Blood Pressure 178/72 04/24/17 09:30 O2 Sat by Pulse Oximetry (%) 95 04/24/17 09:00 Constitutional: Yes: Well Nourished, No Distress, Obese Eyes: Yes: WNL, Conjunctiva Clear HENT: Yes: WNL, Atraumatic Neck: Yes: WNL, Supple Cardiovascular: Yes: Regular Rate and Rhythm, S1, S2. No: Gallop, Murmur Respiratory: Yes: WNL, Regular, CTA Bilaterally. No: Rales, Rhonchi Gastrointestinal: Yes: WNL, Normal Bowel Sounds, Soft. No: Tenderness, Tenderness, Epigastrium Extremities: Yes: Other (Left kne as described above) Labs: CBC, BMP 04/24/17 06:00 04/24/17 06:00 INR, PTT INR 1.24 (0.82-1.09) H 04/24/17 06:00 Problem List - Problems (1) Infection of prosthetic left knee joint Code(s): T84.54XA - INFECT/INFLM REACTION DUE TO INTERNAL LEFT KNEE PROSTH, INIT Qualifiers: Encounter type: subsequent encounter Qualified Code(s): T84.54XD - Infection and inflammatory reaction due to internal left knee prosthesis, subsequent encounter Assessment/Plan Microbiology Laboratory Tests 04/24/17 04/24/17 04/24/17 06:00 06:00 06:00 WBC 6.3 Hgb 9.9 L D Hct 31.3 L Plt Count 399 ESR 59 H C-Reactive Protein 9.5 H Assessment Infection of the left knee prosthesis post washout procedure already with purulent drainage and failure of wound to close Plan Reasonable to observe off all antibiotics at this point Dose of Vanco 1.5 gram prior to OR prophylxis Removal of the prosthesis with new operative cultures Plan to retreat her with PICC line all over again Trey RYAN
[2017-04-24] MEDS ORDERED: ceFAZolin SODIUM 1 GM VIAL IVPB ONE ×6 (11:14→23:58)
--- NOTE | 2017-04-24 14:53 | PN ---
Physical Exam: SUBJECTIVE: Patient seen and examined. No acute events overnight. Patient offered no new complaints. Denied abdominal pain, nausea, vomiting, dizziness, SOB, chest pain. OBJECTIVE: Vital Signs Period Temp Pulse Resp BP Sys/Parnell Pulse Ox Last 24 Hr 98.2 F-99.6 F 76-100 16-20 136-185/72-88 95-96 GENERAL: Awake, alert, and fully oriented, in no acute distress. HEAD: Normal with no signs of trauma. EYES: Pupils equal, round and reactive to light EARS, NOSE, THROAT: oropharynx clear without exudates. Moist mucous membranes. NECK: supple without lymphadenopathy LUNGS: Breath sounds equal, clear to auscultation bilaterally. No wheezes, and no crackles. HEART: Regular rate and rhythm, normal S1 and S2 without murmur, rub or gallop. ABDOMEN: Soft, nontender, not distended, normoactive bowel sounds. MUSCULOSKELETAL: Left knee with small 1 inch wound, with purulent drainage. 3 inch wound with purulent drainage w erythema extending to foot. Left LE with Limited range of motion, unable to bend. UPPER EXTREMITIES: 2+ pulses, No peripheral edema. LOWER EXTREMITIES: 2+ pulses, warm, well-perfused. 1+ Edema LLE PSYCHIATRIC: Cooperative. Good eye contact. Appropriate mood and affect. Laboratory Results - last 24 hr 04/23/17 04/23/17 04/23/17 13:53 14:20 14:20 WBC 8.4 RBC 4.59 D Hgb 11.1 D Hct 35.9 D MCV 78.1 L D MCH 24.3 L MCHC 31.0 L RDW 15.5 D Plt Count 443 H D MPV 7.8 Neutrophils % 69.0 Lymphocytes % 21.1 Monocytes % 8.0 Eosinophils % 1.2 Basophils % 0.7 ESR PT with INR 14.00 H INR 1.24 H PTT (Actin FS) 29.8 Sodium Potassium Chloride Carbon Dioxide Anion Gap BUN Creatinine Creat Clearance w eGFR POC Glucometer Random Glucose Calcium Phosphorus Magnesium Total Bilirubin AST ALT Alkaline Phosphatase C-Reactive Protein Total Protein Albumin Urine Color Urine Appearance Urine pH Ur Specific Talcott Urine Protein Urine Glucose (UA) Urine Ketones Urine Blood Urine Nitrite Urine Bilirubin Urine Urobilinogen Ur Leukocyte Esterase Blood Type A POSITIVE Antibody Screen Negative 04/23/17 04/23/17 04/23/17 14:20 16:00 22:42 WBC RBC Hgb Hct MCV MCH MCHC RDW Plt Count MPV Neutrophils % Lymphocytes % Monocytes % Eosinophils % Basophils % ESR PT with INR INR PTT (Actin FS) Sodium 140 Potassium 3.6 Chloride 102 Carbon Dioxide 28 Anion Gap 10 BUN 8 Creatinine 0.5 L Creat Clearance w eGFR > 60 POC Glucometer 150 Random Glucose 107 H Calcium 8.6 Phosphorus Magnesium Total Bilirubin 0.3 AST 27 ALT 22 Alkaline Phosphatase 123 H C-Reactive Protein Total Protein 7.2 Albumin 2.7 L Urine Color Ltyellow Urine Appearance Clear Urine pH 8.0 Ur Specific [place]cott 1.015 Urine Protein Negative Urine Glucose (UA) Negative Urine Ketones 1+ H Urine Blood Negative Urine Nitrite Negative Urine Bilirubin Negative Urine Urobilinogen Negative Ur Leukocyte Esterase Negative Blood Type Antibody Screen 04/24/17 04/24/17 04/24/17 06:00 06:00 06:00 WBC 6.3 RBC 4.07 Hgb 9.9 L D Hct 31.3 L MCV 77.0 L MCH 24.4 L MCHC 31.7 L RDW 15.7 H Plt Count 399 MPV 7.8 Neutrophils % 63.1 Lymphocytes % 25.3 Monocytes % 8.7 Eosinophils % 1.8 Basophils % 1.1 ESR PT with INR 14.00 H INR 1.24 H PTT (Actin FS) Sodium 143 Potassium 3.7 Chloride 106 Carbon Dioxide 25 Anion Gap 12 BUN 6 L Creatinine 0.6 Creat Clearance w eGFR > 60 POC Glucometer Random Glucose 103 Calcium 7.9 L Phosphorus 3.1 Magnesium 2.1 Total Bilirubin 0.3 AST 23 ALT 17 Alkaline Phosphatase 100 C-Reactive Protein Total Protein 5.9 L Albumin 2.2 L Urine Color Urine Appearance Urine pH Ur Specific [place] Urine Protein Urine Glucose (UA) Urine Ketones Urine Blood Urine Nitrite Urine Bilirubin Urine Urobilinogen Ur Leukocyte Esterase Blood Type Antibody Screen 04/24/17 04/24/17 04/24/17 06:00 06:00 07:03 WBC RBC Hgb Hct MCV MCH MCHC RDW Plt Count MPV Neutrophils % Lymphocytes % Monocytes % Eosinophils % Basophils % ESR 59 H PT with INR INR PTT (Actin FS) Sodium Potassium Chloride Carbon Dioxide Anion Gap BUN Creatinine Creat Clearance w eGFR POC Glucometer 106 Random Glucose Calcium Phosphorus Magnesium Total Bilirubin AST ALT Alkaline Phosphatase C-Reactive Protein 9.5 H Total Protein Albumin Urine Color Urine Appearance Urine pH Ur Specific [place] Urine Protein Urine Glucose (UA) Urine Ketones Urine Blood Urine Nitrite Urine Bilirubin Urine Urobilinogen Ur Leukocyte Esterase Blood Type Antibody Screen 04/24/17 11:48 WBC RBC Hgb Hct MCV MCH MCHC RDW Plt Count MPV Neutrophils % Lymphocytes % Monocytes % Eosinophils % Basophils % ESR PT with INR INR PTT (Actin FS) Sodium Potassium Chloride Carbon Dioxide Anion Gap BUN Creatinine Creat Clearance w eGFR POC Glucometer 113 Random Glucose Calcium Phosphorus Magnesium Total Bilirubin AST ALT Alkaline Phosphatase C-Reactive Protein Total Protein Albumin Urine Color Urine Appearance Urine pH Ur Specific [place] Urine Protein Urine Glucose (UA) Urine Ketones Urine Blood Urine Nitrite Urine Bilirubin Urine Urobilinogen Ur Leukocyte Esterase Blood Type Antibody Screen Active Medications Generic Name Dose Route Start Last Admin Trade Name Freq PRN Reason Stop Dose Admin Ascorbic Acid 500 mg 04/24/17 10:00 04/24/17 11:03 Vitamin C - PO Not Given DAILY [facility] Sodium Chloride 1,000 mls @ 125 mls/hr 04/23/17 23:00 04/24/17 06:59 Normal Saline - IV 125 mls/hr ASDIR JOSE LUIS Administration Insulin Aspart 1 vial 04/23/17 22:00 04/24/17 11:49 Novolog Vial Sliding Scale - SQ Not Given ACHS [facility] Protocol Losartan Potassium 50 mg 04/24/17 10:00 04/24/17 09:24 Cozaar - PO 50 mg DAILY JOSE LUIS Administration Morphine Sulfate 2 mg 04/23/17 18:28 Morphine Injection - IVPUSH Q4H PRN PAIN LEVEL 6-10 Multivitamins/Minerals/Vitamin C 1 tab 04/24/17 10:00 04/24/17 11:03 Tab-A-Vit - PO Not Given DAILY [facility] Oxycodone HCl 10 mg 04/23/17 23:00 04/24/17 11:02 Oxycontin - PO Not Given BID [facility] Pantoprazole Sodium 40 mg 04/24/17 10:00 04/24/17 11:03 Protonix - PO Not Given DAILY [facility] Polyethylene Glycol 17 gm 04/24/17 10:00 04/24/17 11:02 Miralax (For Daily Use) - PO Not Given DAILY [facility] Senna/Docusate Sodium 1 tablet 04/23/17 22:00 04/24/17 11:02 Pericolace - PO Not Given BID [facility] ASSESSMENT/PLAN: Patient is a 72 yo F with a PMHx of HTN, pre-diabetes, s/p R TKR (05/17), s/p L TKR (01/16/17), presents after L TKR on 01/16 complicated by wound dehiscence s/ p mechanical fall to knee. #Left Septic Knee Joint secondary to wound Dehiscence -Ortho on board (Dr. Jara)- scheduled Removal of the prosthesis for today . Low risk for intermediate risk surgery METS 4. -Will follow up post-op -ID consulted- observe off all antibiotics at this point as per Dr. Wild -Held ASA 325mg for scheduled surgery -Dose of Vanco 1.5 gram prior to OR prophylaxis -Oxycodone 10mg BID -2 mg IV morphine q4h PRN -Fu cultures -CRP 9.5 -NPO #Constipation -likely secondary to opiate use -BM today -Miralax #HTN/CAD -cont. Losartan 50mg #Pre-Diabetes -Last A1c 6.1 -Held Metformin -ISS -BGM #FEN -No fluids -WNL -diabetic diet, NPO after midnight #PPx -SCD's for scheduled surgery Visit type - Emergency Visit Emergency Visit: Yes ED Registration Date: 04/23/17 Care time: The patient presented to the Emergency Department on the above date and was hospitalized for further evaluation of their emergent condition. - New Patient This patient is new to me today: No - Critical Care Critical Care patient: No
--- NOTE | 2017-04-24 16:24 | PN ---
Teaching Attending Note Name of Resident: Ofe Landeros ATTENDING PHYSICIAN STATEMENT I saw and evaluated the patient. I reviewed the resident's note and discussed the case with the resident. I agree with the resident's findings and plan as documented. SUBJECTIVE:pain is controlled. denies CP, SOB, fever, chills, N/V/C/D OBJECTIVE: Last Vital Signs Temp Pulse Resp BP Pulse Ox 98.6 F 90 20 165/73 95 04/24/17 14:55 04/24/17 14:55 04/24/17 14:55 04/24/17 14:55 04/24/17 09:00 General NAD CV S1 S2 RRR Lungs CTA B/L no wheezing/rales/rhonchi Abdomen soft NT/ND, obese Extremities B/L non pitting edema. L knee with 1 cm ulceration superior to knee with copious serous drainage. surgical wound dehsiced over the L knee 3inches long with copious serous drainage and pus. deep sutures in place. erythema surrounding wound. area is not tender. pulses 2+. RUE with +PICC line. ASSESSMENT AND PLAN: 72yo F wtih PMH DM and HTN presented to the ER without L septic knee which failed outpatient IV therapy 1. Septic knee- NPO for OR today. PLanned for full hardware removal and abx spacer inserted. possible wound vac to be applied. however daughter who is present is very opposed to wound vac placement and believes the knee never healed due to the vac being placed the last surgery. will like to d/w ortho about this prior to its placement. will hold abx at this time waiting repeat Cx report. complete bed rest for now. pain control. Ortho and ID on board. further management per ortho 2. Constipation-likely exacerbated by opiates. no BM today. on miralax and stool softeners. 3. Microcytic anemia- likely dilutional component. will check CBC post surgery. check iron studies. txn as needed 4. DM- A1c 6.1 on last admission. will hold oral agents. diabetic diet. iss. bgm 5. HTN- slightly above goal. likely due to pain. will cont home medications. consider increasing if remains elevated and pain controlled 6. DVT- will re-start prophylaxis at discretion of surgeon. currently on hold 7. spoke with daughter present at bedside. all questions answered. verbalized understanding and agreement with plan.
[2017-04-24] MEDS ORDERED: MIDAZOLAM HCL 2 MG/2 ML SINGLE DOSE VIAL ONE ×3 (19:58→21:35)
[2017-04-24] MEDS ORDERED: ceFAZolin SODIUM 1 GM VIAL ONE ×2 (19:59→20:57)
[2017-04-24] MEDS ORDERED: SODIUM CHLORIDE 0.9% P/F 10 ML VIAL IJ ONE (19:59)
[2017-04-24] MEDS ORDERED: BUPIVACAINE HCL/PF 0.5% (5MG/ML) 10 ML VIAL ONE (20:31)
[2017-04-24] MEDS ORDERED: VANCOMYCIN 1,000 MG VIAL (RESTRICTED TO ID ONLY) ONE ×2 (21:17→21:19)
[2017-04-24] MEDS ORDERED: PROPOFOL 20 ML ONE (22:03)
[2017-04-24] MEDS ORDERED: DEXAMETHASONE SOD PHOSPHATE 4 MG/1 ML VIAL ONE (22:18)
[2017-04-24] MEDS ORDERED: ONDANSETRON 4 MG/2 ML VIAL IVPUSH PRN (23:39)
[2017-04-24] MEDS ORDERED: DEXAMETHASONE SOD PHOSPHATE 4 MG/1 ML VIAL IVPUSH PRN (23:39)
[2017-04-24] MEDS ORDERED: HYDROmorphone HCL CARPU-JECT 1 MG/1 ML DISP.SYRIN IVPUSH PRN (23:39)
[2017-04-24] MEDS ORDERED: PROMETHAZINE HCL 25 MG/1 ML VIAL IVPB PRN (23:39)
[2017-04-24] MEDS ORDERED: HYDROmorphone *PCA* 10MG/50ML DISP.SYRIN PCA SCH (23:45)
[2017-04-24] MEDS ORDERED: LACTATED RINGERS SOLUTION 1,000 ML IV SCH (23:45)
[2017-04-24] MEDS ORDERED: KETOROLAC TROMETHAMINE 30 MG/1 ML VIAL ONE (23:54)
[2017-04-24] MEDS ORDERED: HYDROmorphone *PCA* 10MG/50ML DISP.SYRIN PCA ONE (23:55)
[2017-04-25] MEDS ORDERED: VANCOMYCIN 1,000 MG VIAL (RESTRICTED TO ID ONLY) IVPB ONE (00:08)
[2017-04-25] MEDS ORDERED: HYDROmorphone HCL CARPU-JECT 2 MG/1 ML DISP.SYRIN ONE (01:21)
[2017-04-25] MEDS ORDERED: MAGNESIUM HYDROX 2400MG/30ML ORAL SUSPENSION 30 ML CUP PO PRN (01:46)
[2017-04-25] MEDS ORDERED: MAG HYDROX/AL HYDROX/SIMETH 30 ML UNIT-DOSE CUP PO PRN (01:46)
[2017-04-25] MEDS ORDERED: KETOROLAC TROMETHAMINE 30 MG/1 ML VIAL ONE (01:49)
[2017-04-25] MEDS ORDERED: ACETAMINOPHEN INJECTION 100 ML IVPB ONE (01:49)
[2017-04-25] MEDS ORDERED: ACETAMINOPHEN 1000 MG/100 ML VIAL (NON FORMULARY) IVPB ONE (01:50)
--- NOTE | 2017-04-25 01:53 | OP ---
Operative Note - Note: Operative Date: 04/25/17 Pre-Operative Diagnosis: Left knee replacement infection Operation: Left TKA removal of hardware, I&D, placement of antibiotic spacer and VAC machine Post-Operative Diagnosis: Same as Pre-op Surgeon: Calvin Jara Talent Analyst: Antonia Maxwell Anesthesia: Spinal Specimens Removed: Tissue cultures and swabs sent Estimated Blood Loss (mls): 800
[2017-04-25] MEDS ORDERED: oxyCODONE HCL 10 MG SUSTAINED ACTING TABLET ONE (01:54)
[2017-04-25] MEDS: LACTATED RINGERS SOLUTION 1,000 ML IV SCH ×2 (02:00→11:57)
[2017-04-25] MEDS: oxyCODONE HCL 10 MG SUSTAINED ACTING TABLET PO SCH ×3 (02:00→22:53)
[2017-04-25] MEDS ORDERED: ACETAMINOPHEN 325 MG TABLET (FP) PO PRN ×2 (03:23→03:24)
[2017-04-25] MEDS ORDERED: oxyCODONE HCL 5 MG TABLET PO PRN (03:24)
[2017-04-25] MEDS: CEFAZOLIN 2 GM/D5W 2 GM/50 ML ML IVPB SCH ×2 (03:54→10:49)
[2017-04-25] MEDS ORDERED: INSULIN (NOVOLOG) ASPART 100 UNITS/ML 10ML VIAL ONE ×2 (06:22→10:40)
[2017-04-25] MEDS: metFORMIN HCL 500 MG TABLET (FP) PO SCH (06:22)
[2017-04-25] MEDS: INSULIN SLIDING SCALE (NOVOLOG) 1 VIAL SQ SCH ×5 (06:23→22:55)
--- NOTE | 2017-04-25 08:22 | PN ---
Progress Note (short form) - Note Progress Note: Anesthesia post op note, POD#1, S/P left TKA removal of hardware, I&D, placement of antibiotic spacer and VAC machine, under Spinal anesthesia. Pat seen and examined. VSS. Tolerating po. Normalized motor and sensory post spinal. No apparent post anesthesia complications. signed off. P
[2017-04-25] MEDS ORDERED: VANCOMYCIN 1,000 MG in DEXTROSE 5%-WATER - 250 ML IVPB ONE (09:00)
[2017-04-25 09:10] LABS: HEMOGLOBIN 7.7 GM/dL (10.7-15.3); MCHC 30.9 g/dl (32.0-36.0); MEAN CELL VOLUME 77.5 fl (80-96); MEAN PLT VOLUME 7.5 fl (7.5-11.1); PLATELET COUNT 399 K/MM3 (134-434); RBC 3.22 M/mm3 (3.60-5.2); RDW 15.4 % (11.6-15.6); WHITE BLOOD COUNT 13.6 K/mm3 (4.0-10.0)
[2017-04-25 09:29] LABS: ANION GAP 10 (8-16); CHLORIDE 106 mmol/L (98-107); CO2 24 mmol/L (21-32); POTASSIUM 4.4 mmol/L (3.5-5.1); SODIUM 140 mmol/L (136-145)
[2017-04-25] MEDS ORDERED: SENNOSIDES/DOCUSATE COMBO (SENNA PLUS) TABLET (UD) PO SCH (10:00)
[2017-04-25 10:37] LABS: ALBUMIN 2.1 g/dl (3.4-5.0); ALK PHOS 85 U/L (45-117); BILIRUBIN,TOTAL 0.2 mg/dL (0.2-1.0); BLOOD UREA NITROGEN 10 mg/dL (7-18); CREATININE 0.6 mg/dL (0.55-1.02); GLUCOSE,RANDOM 160 mg/dL (74-106); SGOT/AST 26 U/L (15-37); SGPT/ALT 16 U/L (12-78); TOT PROT 5.5 g/dl (6.4-8.2)
[2017-04-25] MEDS: LOSARTAN POTASSIUM 50 MG TABLET (FP) PO SCH (10:49)
[2017-04-25] MEDS: GABAPENTIN 300 MG CAPSULE (FP) PO SCH ×2 (10:49→22:52)
[2017-04-25] MEDS: SENNOSIDES/DOCUSATE COMBO (SENNA PLUS) TABLET (UD) PO SCH ×2 (10:49→22:55)
[2017-04-25] MEDS: ASCORBIC ACID 500 MG TABLET (FP) PO SCH (10:49)
[2017-04-25] MEDS: MULTIVITAMINS (DAILY MVI) TABLET (FP) PO SCH (10:49)
[2017-04-25] MEDS: PANTOPRAZOLE 40 MG TABLET (FP) PO SCH (10:49)
[2017-04-25] MEDS: POLYETHYLENE GLYCOL 3350 119 GM BTL PO SCH ×2 (11:04→12:27)
--- NOTE | 2017-04-25 11:45 | PN ---
Physical Exam: SUBJECTIVE: Patient seen and examined. Says she came back from surgery at 2am. Offers no new complaints. Says she feels much better today. Denies abdominal pain, chest pain, SOB, dizziness, nausea vomiting. OBJECTIVE: Vital Signs Period Temp Pulse Resp BP Sys/Parnell Pulse Ox Last 24 Hr 97.6 F-99.2 F 90-102 16-23 118-165/45-80 97-99 GENERAL: Awake, alert, and fully oriented, in no acute distress. HEAD: Normal with no signs of trauma. EYES: Pupils equal, round and reactive to light EARS, NOSE, THROAT: oropharynx clear without exudates. Moist mucous membranes. NECK: supple without lymphadenopathy LUNGS: Breath sounds equal, clear to auscultation bilaterally. No wheezes, and no crackles. HEART: Regular rate and rhythm, normal S1 and S2 without murmur, rub or gallop. ABDOMEN: Soft, nontender, not distended, normoactive bowel sounds. MUSCULOSKELETAL: s/p surgery Left knee dressing placed with full left leg cast covering the surgical site, VAC placed UPPER EXTREMITIES: 2+ pulses, No peripheral edema. LOWER EXTREMITIES: 2+ pulses, warm, well-perfused. 1+ Edema LLE PSYCHIATRIC: Cooperative. Good eye contact. Appropriate mood and affect. Laboratory Results - last 24 hr 04/24/17 04/24/17 04/25/17 11:48 16:17 02:31 WBC RBC Hgb Hct MCV MCH MCHC RDW Plt Count MPV Sodium Potassium Chloride Carbon Dioxide Anion Gap BUN Creatinine Creat Clearance w eGFR POC Glucometer 113 92 169 Random Glucose Calcium Ferritin Total Bilirubin AST ALT Alkaline Phosphatase Total Protein Albumin 04/25/17 04/25/17 04/25/17 06:20 08:30 08:30 WBC 13.6 H D RBC 3.22 L D Hgb 7.7 L D Hct 25.0 L D MCV 77.5 L MCH 24.0 L MCHC 30.9 L RDW 15.4 Plt Count 399 MPV 7.5 Sodium 140 Potassium 4.4 Chloride 106 Carbon Dioxide 24 Anion Gap 10 BUN 10 Creatinine 0.6 Creat Clearance w eGFR > 60 POC Glucometer 191 Random Glucose 160 H Calcium 8.0 L Ferritin 307.203 H Total Bilirubin 0.2 D AST 26 ALT 16 Alkaline Phosphatase 85 Total Protein 5.5 L Albumin 2.1 L 04/25/17 10:57 WBC RBC Hgb Hct MCV MCH MCHC RDW Plt Count MPV Sodium Potassium Chloride Carbon Dioxide Anion Gap BUN Creatinine Creat Clearance w eGFR POC Glucometer 193 Random Glucose Calcium Ferritin Total Bilirubin AST ALT Alkaline Phosphatase Total Protein Albumin Active Medications Generic Name Dose Route Start Last Admin Trade Name Freq PRN Reason Stop Dose Admin Acetaminophen 650 mg 04/25/17 03:23 Tylenol - PO 04/28/17 03:22 Q4H PRN Acetaminophen 325 mg 04/25/17 03:24 Tylenol - PO 04/28/17 03:23 Q4H PRN Al Hydroxide/Mg Hydroxide 30 ml 04/25/17 01:46 Mylanta Oral Suspension - PO Q4H PRN DYSPEPSIA Apixaban 2.5 mg 04/25/17 10:00 Eliquis - PO BID JOSE LUIS Ascorbic Acid 500 mg 04/24/17 10:00 04/25/17 10:49 Vitamin C - PO 500 mg DAILY JOSE LUIS Administration Celecoxib 200 mg 04/25/17 10:00 Celebrex - PO DAILY JOSE LUIS Gabapentin 300 mg 04/25/17 10:00 04/25/17 10:49 Neurontin - PO 04/28/17 09:59 300 mg BID JOSE LUIS Administration Cefazolin Sodium/Dextrose 2 gm in 50 mls @ 200 mls/hr 04/25/17 03:45 10:49 Ancef 2 Gm Premixed Ivpb - IVPB 05/01/17 10:14 200 mls/hr Q8H-IV JOSE LUIS Administration Lactated Ringer's 1,000 mls @ 125 mls/hr 04/25/17 02:00 04/25/17 02:00 Lactated Ringers Solution IV 04/26/17 06:00 100 mls ASDIR JOSE LUIS Administration Vancomycin HCl 1,000 mg/ 250 mls @ 250 mls/hr 04/25/17 10:00 Dextrose IVPB BID [facility] Protocol Insulin Aspart 1 vial 04/23/17 22:00 04/25/17 10:58 Novolog Vial Sliding Scale - SQ Not Given ACHS [facility] Protocol Losartan Potassium 50 mg 04/24/17 10:00 04/25/17 10:49 Cozaar - PO 50 mg DAILY [facility] Administration Magnesium Hydroxide 30 ml 04/25/17 01:46 Milk Of Magnesia - PO PRN PRN CONSTIPATION Metformin HCl 500 mg 04/25/17 07:00 04/25/17 06:22 Glucophage - PO 500 mg DAILY@0700 JOSE [facility] Administration Morphine Sulfate 2 mg 04/23/17 18:28 Morphine Injection - IVPUSH Q4H PRN PAIN LEVEL 6-10 Multivitamins/Minerals/Vitamin C 1 tab 04/24/17 10:00 04/25/17 10:49 Tab-A-Vit - PO 1 tab DAILY [facility] Administration Ondansetron HCl 4 mg 04/24/17 23:39 Zofran Injection IVPUSH Q4H PRN NAUSEA AND/OR VOMITING Oxycodone HCl 10 mg 04/23/17 23:00 04/25/17 10:50 Oxycontin - PO 10 mg BID JOSE LUIS Administration Oxycodone HCl 10 mg 04/25/17 03:23 Roxicodone - PO Q4H PRN PAIN LEVEL 6-10 Oxycodone HCl 5 mg 04/25/17 03:24 Roxicodone - PO Q4H PRN PAIN LEVEL 4 - 6 Pantoprazole Sodium 40 mg 04/24/17 10:00 04/25/17 10:49 Protonix - PO 40 mg DAILY [facility] Administration Polyethylene Glycol 17 gm 04/24/17 10:00 04/25/17 11:04 Miralax (For Daily Use) - PO 17 gm DAILY [facility] Administration Senna/Docusate Sodium 1 tablet 04/23/17 22:00 04/25/17 10:49 Pericolace - PO 1 tablet BID JOSE LUIS Administration ASSESSMENT/PLAN: Patient is a 72 yo F with a PMHx of HTN, pre-diabetes, s/p R TKR (05/17), s/p L TKR (01/16/17), presents after L TKR on 01/16 complicated by wound dehiscence s/ p mechanical fall to knee. #Left Septic Knee Joint secondary to wound Dehiscence -S/P left TKA removal 04/25 of hardware, I&D, placement of antibiotic spacer and VAC machine -Wound Vac with Sanguinous drainage. -Cont IV Abx: Cefazolin, Vanco Day 2 -FU cultures taken in OR -Physical Therapy for deconditioning -ID Consulted: Dr. Wild -Held ASA 325mg -Oxycodone 10mg BID -2 mg IV morphine q4h PRN -Cont. Regular Diet #Anemia -s/p surgery -800cc in wound vac -Ordered 1 unit PRBC -iron studies -Follow H&H #Opiate Induced Constipation -likely secondary to opiate use -Miralax #HTN/CAD -cont. Losartan 50mg #Pre-Diabetes -Last A1c 6.1 -Held Metformin -ISS -BGM #FEN -No fluids -WNL -Regular diet #PPx -Eliquis 2.5mg BID Visit type - Emergency Visit Emergency Visit: Yes ED Registration Date: 04/23/17 Care time: The patient presented to the Emergency Department on the above date and was hospitalized for further evaluation of their emergent condition. - New Patient This patient is new to me today: No - Critical Care Critical Care patient: No
[2017-04-25] MEDS: APIXABAN 2.5 MG TABLET PO SCH ×2 (12:25→23:00)
[2017-04-25] MEDS: CELECOXIB 200 MG CAPSULE PO SCH (12:25)
--- NOTE | 2017-04-25 12:44 | PN ---
Teaching Attending Note Name of Resident: Ofe Landeros ATTENDING PHYSICIAN STATEMENT I saw and evaluated the patient. I reviewed the resident's note and discussed the case with the resident. I agree with the resident's findings and plan as documented. SUBJECTIVE:c/o pain in leg but improves with pain medication. 1 BM yesterday. passed flatus today. tolerated some activity with PT. denies CP, SOB, fever, chills, N/V/C/D OBJECTIVE: Last Vital Signs Temp Pulse Resp BP Pulse Ox 97.6 F 91 H 20 122/70 98 04/25/17 05:37 04/25/17 05:37 04/25/17 05:37 04/25/17 05:37 04/25/17 02:45 General NAD Extremities RLE in leg stabilizer, +wound vac with sangenous drainage. pulses 2 +. RUE with +PICC line. ASSESSMENT AND PLAN: 72yo F wtih PMH DM and HTN presented to the ER without L septic knee which failed outpatient IV therapy 1. Septic knee-s/p L TKA hardware removal, I&D, placement of antibiotic spacer and VAC machine 04/14/17. wound vac in place with sangenous drainage.On Cefazolin and vanco day 2. will f/u Cx taken during surgery. PT. ID and ortho on board. F/u Cx 2. Constipation-likely exacerbated by opiates. no BM today. on miralax and stool softeners. 3. Microcytic anemia- drop after surgery and 800cc in wound vac. transfuse 1 unit of PRBC. iron studies pending. txn as needed. check post-op cbc 4. DM- A1c 6.1 on last admission. will hold oral agents. diabetic diet. iss. bgm 5. HTN- controlled. cont home medications. 6. DVT- eliquis for DVT ppx per ortho recommendations
--- NOTE | 2017-04-25 14:20 | PN ---
Progress Note, Physician Chief Complaint: ID Post removal of hardware today with spacer - Current Medication List Current Medications: Active Medications Acetaminophen (Tylenol -) 650 mg PO Q4H PRN Stop: 04/28/17 03:22 Acetaminophen (Tylenol -) 325 mg PO Q4H PRN Stop: 04/28/17 03:23 Al Hydroxide/Mg Hydroxide (Mylanta Oral Suspension -) 30 ml PO Q4H PRN PRN Reason: DYSPEPSIA Apixaban (Eliquis -) 2.5 mg PO BID [facility] Last Admin: 04/25/17 12:25 Dose: 2.5 mg Ascorbic Acid (Vitamin C -) 500 mg PO DAILY [facility] Last Admin: 04/25/17 10:49 Dose: 500 mg Celecoxib (Celebrex -) 200 mg PO DAILY [facility] Last Admin: 04/25/17 12:25 Dose: 200 mg Gabapentin (Neurontin -) 300 mg PO BID [facility] Stop: 04/28/17 09:59 Last Admin: 04/25/17 10:49 Dose: 300 mg Cefazolin Sodium/Dextrose (Ancef 2 Gm Premixed Ivpb -) 2 gm in 50 mls @ 200 mls /hr IVPB Q8H-IV [facility] Stop: 05/01/17 10:14 Last Admin: 04/25/17 10:49 Dose: 200 mls/hr Lactated Ringer's (Lactated Ringers Solution) 1,000 mls @ 125 mls/hr IV ASDIR [facility] Stop: 04/26/17 06:00 Last Admin: 04/25/17 11:57 Dose: 125 mls/hr Vancomycin HCl 1,000 mg/ (Dextrose) 250 mls @ 250 mls/hr IVPB BID [facility] PRN Reason: Protocol Insulin Aspart (Novolog Vial Sliding Scale -) 1 vial SQ ACHS [facility] PRN Reason: Protocol Last Admin: 04/25/17 10:58 Dose: Not Given Losartan Potassium (Cozaar -) 50 mg PO DAILY [facility] Last Admin: 04/25/17 10:49 Dose: 50 mg Magnesium Hydroxide (Milk Of Magnesia -) 30 ml PO PRN PRN PRN Reason: CONSTIPATION Metformin HCl (Glucophage -) 500 mg PO DAILY@0700 [facility] Last Admin: 04/25/17 06:22 Dose: 500 mg Morphine Sulfate (Morphine Injection -) 2 mg IVPUSH Q4H PRN PRN Reason: PAIN LEVEL 6-10 Multivitamins/Minerals/Vitamin C (Tab-A-Vit -) 1 tab PO DAILY [facility] Last Admin: 04/25/17 10:49 Dose: 1 tab Ondansetron HCl (Zofran Injection) 4 mg IVPUSH Q4H PRN PRN Reason: NAUSEA AND/OR VOMITING Oxycodone HCl (Oxycontin -) 10 mg PO BID [facility] Last Admin: 04/25/17 10:50 Dose: 10 mg Oxycodone HCl (Roxicodone -) 10 mg PO Q4H PRN PRN Reason: PAIN LEVEL 6-10 Oxycodone HCl (Roxicodone -) 5 mg PO Q4H PRN PRN Reason: PAIN LEVEL 4 - 6 Pantoprazole Sodium (Protonix -) 40 mg PO DAILY [facility] Last Admin: 04/25/17 10:49 Dose: 40 mg Polyethylene Glycol (Miralax (For Daily Use) -) 17 gm PO DAILY [facility] Last Admin: 04/25/17 12:27 Dose: Not Given Senna/Docusate Sodium (Pericolace -) 1 tablet PO BID [facility] Last Admin: 04/25/17 10:49 Dose: 1 tablet - Objective Vital Signs: Vital Signs Temperature 97.6 F 04/25/17 08:00 Pulse Rate 87 04/25/17 08:00 Respiratory Rate 20 04/25/17 08:00 Blood Pressure 148/72 04/25/17 08:00 O2 Sat by Pulse Oximetry (%) 96 04/25/17 08:00 Constitutional: Yes: Well Nourished, No Distress HENT: Yes: WNL, Atraumatic Neck: Yes: WNL, Supple Cardiovascular: Yes: Regular Rate and Rhythm, S1, S2 Respiratory: Yes: WNL, Regular, CTA Bilaterally Gastrointestinal: Yes: WNL, Normal Bowel Sounds, Soft. No: Tenderness Extremities: Yes: Other (POst op dressing) Labs: CBC, BMP 04/25/17 08:30 04/25/17 08:30 INR, PTT INR 1.24 (0.82-1.09) H 04/24/17 06:00 Problem List - Problems (1) Infection of prosthetic left knee joint Code(s): T84.54XA - INFECT/INFLM REACTION DUE TO INTERNAL LEFT KNEE PROSTH, INIT Qualifiers: Encounter type: subsequent encounter Qualified Code(s): T84.54XD - Infection and inflammatory reaction due to internal left knee prosthesis, subsequent encounter Assessment/Plan Microbiology Laboratory Tests 04/25/17 04/25/17 08:30 08:30 WBC 13.6 H D Hgb 7.7 L D Hct 25.0 L D Plt Count 399 BUN 10 Creatinine 0.6 Creat Clearance w eGFR > 60 Assessment Enterococcal infected left knee prosthesis Explanted Plan Resume antibiotics Ampicillin Ceftriaxone for enterococcal synergy 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
[2017-04-25] MEDS: AMPICILLIN - 2 GM in SODIUM CHLORIDE 100 ML IVPB SCH ×3 (15:36→22:51)
[2017-04-25] MEDS ORDERED: PT OWN MED DRAWER 7, Y5N ONE (21:44)
[2017-04-25 22:08] LABS: HEMATOCRIT 24.9 % (32.4-45.2); HEMOGLOBIN 8.1 GM/dL (10.7-15.3); MCH 25.3 pg (25.7-33.7); MCHC 32.3 g/dl (32.0-36.0); MEAN CELL VOLUME 78.2 fl (80-96); MEAN PLT VOLUME 7.5 fl (7.5-11.1); PLATELET COUNT 370 K/MM3 (134-434); RBC 3.19 M/mm3 (3.60-5.2); RDW 15.9 % (11.6-15.6); WHITE BLOOD COUNT 12.6 K/mm3 (4.0-10.0)
[2017-04-25] MEDS: CEFTRIAXONE IN IS-OSM DEXTROSE 2 GM/50 ML BAG IVPB SCH (22:54)
--- NOTE | 2017-04-25 23:44 | PN ---
Progress Note (short form) - Note Progress Note: Pt seen and examined. Comfortable. AVSS Selected Entries 04/25/17 04/25/17 08:00 15:19 Temperature 97.9 F Pulse Rate 74 Respiratory 16 Rate Blood Pressure 116/84 O2 Sat by Pulse 96 Oximetry (%) Oxygen Delivery Room Air Method Laboratory Tests 04/25/17 04/25/17 08:30 22:05 WBC 12.6 H Hgb 8.1 L Hct 24.9 L Plt Count 370 Sodium 140 Potassium 4.4 Chloride 106 Carbon Dioxide 24 Anion Gap 10 BUN 10 Creatinine 0.6 Creat Clearance w eGFR > 60 Random Glucose 160 H Calcium 8.0 L CULTURES PENDING Gen: NAD, awake/alert LLE: VAC in place, functional. 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 PT/OOB - TTWB LLE. Knee immobilizer at all times. 2. VAC change M/W/F - will need both black and white foam 3. F/U Cx 4. Discharge planning to SNF/rehab. Will need new PICC line before discharge. Pt will need to f/u with ID after discharge as an outpatient to manage IV abx - this should be explicitly stated in the discharge instructions. 5. Eliquis BID for DVT prophylaxis until patient has the second stage ( reimplantation of TKA) of this 2-stage exchange procedure in several weeks if the infection is cleared. She will be referred to Dr. Francisco Zimmerman at [facility] in [facility] for this because she will also likely require plastic surgery to perform a gastroc flap to cover the area of necrosed skin in front of her knee - this is better performed in a large tertiary care center.
[2017-04-26] MEDS: AMPICILLIN - 2 GM in SODIUM CHLORIDE 100 ML IVPB SCH ×6 (02:28→22:06)
[2017-04-26] MEDS: metFORMIN HCL 500 MG TABLET (FP) PO SCH (06:22)
[2017-04-26] MEDS: INSULIN SLIDING SCALE (NOVOLOG) 1 VIAL SQ SCH ×4 (06:23→22:05)
[2017-04-26 07:49] LABS: HEMATOCRIT 23.7 % (32.4-45.2); HEMOGLOBIN 7.7 GM/dL (10.7-15.3); MCH 25.4 pg (25.7-33.7); MCHC 32.5 g/dl (32.0-36.0); MEAN CELL VOLUME 78.2 fl (80-96); MEAN PLT VOLUME 7.7 fl (7.5-11.1); PLATELET COUNT 344 K/MM3 (134-434); RBC 3.03 M/mm3 (3.60-5.2); RDW 15.1 % (11.6-15.6); WHITE BLOOD COUNT 10.3 K/mm3 (4.0-10.0)
[2017-04-26 08:06] LABS: CHLORIDE 106 mmol/L (98-107); SODIUM 141 mmol/L (136-145)
[2017-04-26 08:13] LABS: ANION GAP 8 (8-16); BLOOD UREA NITROGEN 15 mg/dL (7-18); CALCIUM 7.5 mg/dL (8.5-10.1); CO2 27 mmol/L (21-32); CREATININE 0.7 mg/dL (0.55-1.02); GLUCOSE,RANDOM 166 mg/dL (74-106)
[2017-04-26 08:17] LABS: ALBUMIN 1.9 g/dl (3.4-5.0); ANION GAP 7 (8-16); BLOOD UREA NITROGEN 15 mg/dL (7-18); CALCIUM 7.5 mg/dL (8.5-10.1); CHLORIDE 105 mmol/L (98-107); CO2 28 mmol/L (21-32); GLUCOSE,RANDOM 158 mg/dL (74-106); SODIUM 140 mmol/L (136-145)
[2017-04-26 08:23] LABS: ALK PHOS 74 U/L (45-117); BILIRUBIN,TOTAL 0.3 mg/dL (0.2-1.0); CREATININE 0.7 mg/dL (0.55-1.02); SGOT/AST 22 U/L (15-37); SGPT/ALT 12 U/L (12-78); TOT PROT 5.2 g/dl (6.4-8.2)
[2017-04-26 08:46] LABS: SERUM IRON SATURATION 7 % (15-55); TOTAL IRON BINDING CAPACITY 195 ug/dL (250-450); UIBC 182 ug/dL (118-369)
[2017-04-26] MEDS ORDERED: PT OWN MED DRAWER 7, Y5N ONE ×3 (09:39→17:52)
[2017-04-26] MEDS: APIXABAN 2.5 MG TABLET PO SCH ×2 (09:45→22:06)
[2017-04-26] MEDS: MULTIVITAMINS (DAILY MVI) TABLET (FP) PO SCH (09:45)
[2017-04-26] MEDS: GABAPENTIN 300 MG CAPSULE (FP) PO SCH ×2 (09:45→22:11)
[2017-04-26] MEDS: LOSARTAN POTASSIUM 50 MG TABLET (FP) PO SCH (09:45)
[2017-04-26] MEDS: ASCORBIC ACID 500 MG TABLET (FP) PO SCH (09:45)
[2017-04-26] MEDS: SENNOSIDES/DOCUSATE COMBO (SENNA PLUS) TABLET (UD) PO SCH ×2 (09:46→22:12)
[2017-04-26] MEDS: PANTOPRAZOLE 40 MG TABLET (FP) PO SCH (09:46)
[2017-04-26] MEDS: oxyCODONE HCL 10 MG SUSTAINED ACTING TABLET PO SCH ×2 (09:46→22:12)
[2017-04-26] MEDS: CEFTRIAXONE IN IS-OSM DEXTROSE 2 GM/50 ML BAG IVPB SCH (09:47)
[2017-04-26] MEDS: CELECOXIB 200 MG CAPSULE PO SCH (09:47)
[2017-04-26] MEDS: POLYETHYLENE GLYCOL 3350 119 GM BTL PO SCH (09:51)
--- NOTE | 2017-04-26 10:08 | PN ---
Progress Note (short form) - Note Progress Note: asymptomatic. daves CP, SOB, fever, chills, N/V/C/D. no BM since admission but states shes too nervous to go to the bathroom here. Current Medications Generic Name Dose Route Start Last Admin Trade Name Freq PRN Reason Stop Dose Admin Acetaminophen 650 mg 04/25/17 03:23 Tylenol - PO 04/28/17 03:22 Q4H PRN Acetaminophen 325 mg 04/25/17 03:24 Tylenol - PO 04/28/17 03:23 Q4H PRN Al Hydroxide/Mg Hydroxide 30 ml 04/25/17 01:46 Mylanta Oral Suspension - PO Q4H PRN DYSPEPSIA Apixaban 2.5 mg 04/25/17 10:00 04/26/17 09:45 Eliquis - PO 2.5 mg BID [facility] Administration Ascorbic Acid 500 mg 04/24/17 10:00 04/26/17 09:45 Vitamin C - PO 500 mg DAILY [facility] Administration Celecoxib 200 mg 04/25/17 10:00 04/26/17 09:47 Celebrex - PO 200 mg DAILY [facility] Administration Gabapentin 300 mg 04/25/17 10:00 04/26/17 09:45 Neurontin - PO 04/28/17 09:59 300 mg BID [facility] Administration Vancomycin HCl 1,000 mg/ 250 mls @ 250 mls/hr 04/25/17 10:00 Dextrose IVPB BID [facility] Protocol Ampicillin Sodium 2 gm/ Sodium 100 mls @ 200 mls/hr 04/25/17 15:00 04/26/17 09:47 Chloride IVPB 200 mls/hr Q4H-IV [facility] Administration CEFTRIAXONE IN IS-OSM DEXTROSE 2 gm in 50 mls @ 100 mls/hr 04/25/17 22:00 09:47 Ceftriaxone 2 Gm-D5w Bag IVPB 100 mls/hr BID [facility] Administration Insulin Aspart 1 vial 04/23/17 22:00 04/26/17 06:23 Novolog Vial Sliding Scale - SQ 2 unit ACHS [facility] Administration Protocol Losartan Potassium 50 mg 04/24/17 10:00 04/26/17 09:45 Cozaar - PO 50 mg DAILY [facility] Administration Magnesium Hydroxide 30 ml 04/25/17 01:46 Milk Of Magnesia - PO PRN PRN CONSTIPATION Metformin HCl 500 mg 04/25/17 07:00 04/26/17 06:22 Glucophage - PO 500 mg DAILY@0700 [facility] Administration Morphine Sulfate 2 mg 04/23/17 18:28 Morphine Injection - IVPUSH Q4H PRN PAIN LEVEL 6-10 Multivitamins/Minerals/Vitamin C 1 tab 04/24/17 10:00 04/26/17 09:45 Tab-A-Vit - PO 1 tab DAILY [facility] Administration Ondansetron HCl 4 mg 04/24/17 23:39 Zofran Injection IVPUSH Q4H PRN NAUSEA AND/OR VOMITING Oxycodone HCl 10 mg 04/23/17 23:00 04/26/17 09:46 Oxycontin - PO 10 mg BID [facility] Administration Oxycodone HCl 10 mg 04/25/17 03:23 Roxicodone - PO Q4H PRN PAIN LEVEL 6-10 Oxycodone HCl 5 mg 04/25/17 03:24 Roxicodone - PO Q4H PRN PAIN LEVEL 4 - 6 Pantoprazole Sodium 40 mg 04/24/17 10:00 04/26/17 09:46 Protonix - PO 40 mg DAILY [facility] Administration Polyethylene Glycol 17 gm 04/24/17 10:00 04/26/17 09:51 Miralax (For Daily Use) - PO 17 grams DAILY [facility] Administration Senna/Docusate Sodium 1 tablet 04/23/17 22:00 04/26/17 09:46 Pericolace - PO 1 tablet BID [facility] Administration Last Vital Signs Temp Pulse Resp BP Pulse Ox 98.2 F 90 20 104/49 96 04/26/17 05:00 04/26/17 05:00 04/26/17 05:00 04/26/17 05:00 04/25/17 21:00 General NAD CV S1 S2 RRR no murmur/rub/gallop Lungs CTA B/L no wheezing/rales/rhonchi ABdomen soft NT/ND obese Extremities RLE in leg stabilizer, +wound vac with sangenous drainage. pulses 2 +. RUE with +PICC line. CBCD WBC 10.3 K/mm3 (4.0-10.0) H 04/26/17 06:00 RBC 3.03 M/mm3 (3.60-5.2) L 04/26/17 06:00 Hgb 7.7 GM/dL (10.7-15.3) L 04/26/17 06:00 Hct 23.7 % (32.4-45.2) L 04/26/17 06:00 MCV 78.2 fl (80-96) L 04/26/17 06:00 MCHC 32.5 g/dl (32.0-36.0) 04/26/17 06:00 RDW 15.1 % (11.6-15.6) 04/26/17 06:00 Plt Count 344 K/MM3 (134-434) 04/26/17 06:00 MPV 7.7 fl (7.5-11.1) 04/26/17 06:00 CMP Sodium 140 mmol/L (136-145) 04/26/17 06:00 Potassium 4.0 mmol/L (3.5-5.1) 04/26/17 06:00 Chloride 105 mmol/L (98-107) 04/26/17 06:00 Carbon Dioxide 28 mmol/L (21-32) 04/26/17 06:00 Anion Gap 7 (8-16) L 04/26/17 06:00 BUN 15 mg/dL (7-18) 04/26/17 06:00 Creatinine 0.7 mg/dL (0.55-1.02) 04/26/17 06:00 Creat Clearance w eGFR > 60 (>60) 04/26/17 06:00 Calcium 7.5 mg/dL (8.5-10.1) L 04/26/17 06:00 Total Bilirubin 0.3 mg/dL (0.2-1.0) D 04/26/17 06:00 AST 22 U/L (15-37) 04/26/17 06:00 ALT 12 U/L (12-78) 04/26/17 06:00 Alkaline Phosphatase 74 U/L (45-117) 04/26/17 06:00 Total Protein 5.2 g/dl (6.4-8.2) L 04/26/17 06:00 Albumin 1.9 g/dl (3.4-5.0) L 04/26/17 06:00 Microbiology 04/24/17 07:45 Gram Stain - Final Knee - Left 04/24/17 07:45 Gram Stain - Final Knee - Left 04/23/17 14:28 Blood Culture - Preliminary Blood - Peripheral Venous NO GROWTH OBTAINED AFTER 48 HOURS, INCUBATION TO CONTINUE FOR 3 DAYS. 04/23/17 14:28 Blood Culture - Preliminary Blood - Peripheral Venous NO GROWTH OBTAINED AFTER 48 HOURS, INCUBATION TO CONTINUE FOR 3 DAYS. 04/23/17 16:00 Urine Culture - Final Urine - Urine Clean Catch Contaminated: Please Repeat ASSESSMENT AND PLAN: 72yo F wtih PMH DM and HTN presented to the ER without L septic knee which failed outpatient IV therapy 1. Septic knee-s/p L TKA hardware removal, I&D, placement of antibiotic spacer and VAC machine 04/14/17. wound vac in place with sangenous drainage. unclear last time vac drainage was chnaged. will need new PICC line prior to d/c. Abx switched to ampicillin and ceftriaxone day 3. will f/u Cx taken during surgery. PT. ID and ortho on board. F/u Cx 2. Constipation-likely exacerbated by opiates and fear of going in public. no BM today. on miralax and stool softeners. does not want enema 3. Microcytic iron deficicency/anemia of chronic disease- s/p 1 unit PRBC yesterday with good response. Hgb low again today. will repeat levels this afternoon. txn as needed. will start iron supplements. advised side effects of constipation and black stools. will need iron studies repeated in 3 months. 4. DM- A1c 6.1 on last admission. on metformin. diabetic diet. iss. bgm 5. HTN- controlled. cont home medications. 6. DVT- eliquis for DVT ppx per ortho recommendations Visit type - Emergency Visit Emergency Visit: Yes ED Registration Date: 04/23/17 Care time: The patient presented to the Emergency Department on the above date and was hospitalized for further evaluation of their emergent condition. - New Patient This patient is new to me today: No - Critical Care Critical Care patient: No - Discharge Referral Referred to [facility] No
--- NOTE | 2017-04-26 10:43 | PN ---
Progress Note, Physician Chief Complaint: ID Day 2 post op - Current Medication List Current Medications: Active Medications Acetaminophen (Tylenol -) 650 mg PO Q4H PRN Stop: 04/28/17 03:22 Acetaminophen (Tylenol -) 325 mg PO Q4H PRN Stop: 04/28/17 03:23 Al Hydroxide/Mg Hydroxide (Mylanta Oral Suspension -) 30 ml PO Q4H PRN PRN Reason: DYSPEPSIA Apixaban (Eliquis -) 2.5 mg PO BID [facility] Last Admin: 04/26/17 09:45 Dose: 2.5 mg Ascorbic Acid (Vitamin C -) 500 mg PO DAILY [facility] Last Admin: 04/26/17 09:45 Dose: 500 mg Celecoxib (Celebrex -) 200 mg PO DAILY [facility] Last Admin: 04/26/17 09:47 Dose: 200 mg Ferrous Sulfate (Feosol -) 325 mg PO DAILY [facility] Gabapentin (Neurontin -) 300 mg PO BID [facility] Stop: 04/28/17 09:59 Last Admin: 04/26/17 09:45 Dose: 300 mg Vancomycin HCl 1,000 mg/ (Dextrose) 250 mls @ 250 mls/hr IVPB BID [facility] PRN Reason: Protocol Ampicillin Sodium 2 gm/ Sodium (Chloride) 100 mls @ 200 mls/hr IVPB Q4H-IV [facility] Last Admin: 04/26/17 09:47 Dose: 200 mls/hr CEFTRIAXONE IN IS-OSM DEXTROSE (Ceftriaxone 2 Gm-D5w Bag) 2 gm in 50 mls @ 100 mls/hr IVPB BID [facility] Last Admin: 04/26/17 09:47 Dose: 100 mls/hr Insulin Aspart (Novolog Vial Sliding Scale -) 1 vial SQ ACHS [facility] PRN Reason: Protocol Last Admin: 04/26/17 06:23 Dose: 2 unit Losartan Potassium (Cozaar -) 50 mg PO DAILY [facility] Last Admin: 04/26/17 09:45 Dose: 50 mg Magnesium Hydroxide (Milk Of Magnesia -) 30 ml PO PRN PRN PRN Reason: CONSTIPATION Metformin HCl (Glucophage -) 500 mg PO DAILY@0700 [facility] Last Admin: 04/26/17 06:22 Dose: 500 mg Morphine Sulfate (Morphine Injection -) 2 mg IVPUSH Q4H PRN PRN Reason: PAIN LEVEL 6-10 Multivitamins/Minerals/Vitamin C (Tab-A-Vit -) 1 tab PO DAILY [facility] Last Admin: 04/26/17 09:45 Dose: 1 tab Ondansetron HCl (Zofran Injection) 4 mg IVPUSH Q4H PRN PRN Reason: NAUSEA AND/OR VOMITING Oxycodone HCl (Oxycontin -) 10 mg PO BID [facility] Last Admin: 04/26/17 09:46 Dose: 10 mg Oxycodone HCl (Roxicodone -) 10 mg PO Q4H PRN PRN Reason: PAIN LEVEL 6-10 Oxycodone HCl (Roxicodone -) 5 mg PO Q4H PRN PRN Reason: PAIN LEVEL 4 - 6 Pantoprazole Sodium (Protonix -) 40 mg PO DAILY [facility] Last Admin: 04/26/17 09:46 Dose: 40 mg Polyethylene Glycol (Miralax (For Daily Use) -) 17 gm PO DAILY [facility] Last Admin: 04/26/17 09:51 Dose: 17 grams Senna/Docusate Sodium (Pericolace -) 1 tablet PO BID [facility] Last Admin: 04/26/17 09:46 Dose: 1 tablet - Objective Vital Signs: Vital Signs Temperature 98.2 F 04/26/17 05:00 Pulse Rate 90 04/26/17 05:00 Respiratory Rate 20 04/26/17 05:00 Blood Pressure 104/49 04/26/17 05:00 O2 Sat by Pulse Oximetry (%) 96 04/25/17 21:00 Constitutional: Yes: Well Nourished, No Distress Cardiovascular: Yes: Regular Rate and Rhythm, S1, S2 Respiratory: Yes: WNL, Regular, CTA Bilaterally Gastrointestinal: Yes: WNL, Normal Bowel Sounds, Soft. No: Tenderness Extremities: Yes: Other (Post op dressing) Labs: CBC, BMP 04/26/17 06:00 04/26/17 06:00 INR, PTT INR 1.24 (0.82-1.09) H 04/24/17 06:00 Problem List - Problems (1) Infection of prosthetic left knee joint Code(s): T84.54XA - INFECT/INFLM REACTION DUE TO INTERNAL LEFT KNEE PROSTH, INIT Qualifiers: Encounter type: subsequent encounter Qualified Code(s): T84.54XD - Infection and inflammatory reaction due to internal left knee prosthesis, subsequent encounter Assessment/Plan Microbiology 04/24/17 07:45 Knee - Left Gram Stain - Final 04/24/17 07:45 Knee - Left Gram Stain - Final Laboratory Tests 04/26/17 04/26/17 06:00 06:00 WBC 10.3 H Hgb 7.7 L Hct 23.7 L Plt Count 344 BUN 15 Creatinine 0.7 Assessment Post removal of infected knee prosthesis with history of Enterococcus faecalis pure culture Plan 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
[2017-04-26] MEDS: FERROUS SO4 325 MG TABLET (FP) PO SCH (11:23)
[2017-04-26 13:06] LABS: HEMATOCRIT 22.1 % (32.4-45.2); HEMOGLOBIN 7.2 GM/dL (10.7-15.3); MCH 25.1 pg (25.7-33.7); MCHC 32.4 g/dl (32.0-36.0); MEAN CELL VOLUME 77.5 fl (80-96); MEAN PLT VOLUME 7.5 fl (7.5-11.1); PLATELET COUNT 324 K/MM3 (134-434); RBC 2.85 M/mm3 (3.60-5.2); RDW 15.8 % (11.6-15.6); WHITE BLOOD COUNT 9.5 K/mm3 (4.0-10.0)
[2017-04-26] MEDS: diphenhydrAMINE HCL 25 MG CAPSULE (FP) PO PRN (15:05)
--- NOTE | 2017-04-26 15:16 | HOSP ---
Subjective - Review of Symptoms Subjective: Notified by RN that pt developed welts on B/L dorsum of the hands Pt evaluated at bedside speaking in clear sentences. denies tongue or lip swelling, difficulty swallowing saliva or breathing, tingling or throat/tongue/lips resting comfortable. swelling and slight erythema of the chin no swelling of the tongue or lips no stridor no wheezing Has multiple welts and erythema with swelling of B/L dorsum of the hands Assessment and Plan Possible allergic reaction to ceftriaxone will give benadryl x1 hold tonights ceftriaxone dose call placed out to ID Daughter and family present at bedside. discussed plan. informed her that blood counts are low and will repeat in the evening. if low will require another blood transfusion. verbalized understanding and agreement with plan. Physical Examination Vital Signs: Vital Signs Temperature 99.0 F 04/26/17 13:55 Pulse Rate 101 H 04/26/17 09:00 Respiratory Rate 20 04/26/17 09:00 Blood Pressure 103/71 04/26/17 09:00 O2 Sat by Pulse Oximetry (%) 95 04/26/17 09:00 Labs: CBC, BMP 04/26/17 12:40 04/26/17 06:00
[2017-04-26 19:21] LABS: HEMATOCRIT 22.4 % (32.4-45.2); HEMOGLOBIN 7.1 GM/dL (10.7-15.3); MCH 25.1 pg (25.7-33.7); MCHC 31.8 g/dl (32.0-36.0); MEAN CELL VOLUME 78.8 fl (80-96); PLATELET COUNT 347 K/MM3 (134-434); RBC 2.85 M/mm3 (3.60-5.2); RDW 16.1 % (11.6-15.6); WHITE BLOOD COUNT 8.6 K/mm3 (4.0-10.0)
[2017-04-27] MEDS: AMPICILLIN - 2 GM in SODIUM CHLORIDE 100 ML IVPB SCH ×3 (02:43→09:44)
[2017-04-27] MEDS: INSULIN SLIDING SCALE (NOVOLOG) 1 VIAL SQ SCH ×3 (06:05→21:39)
[2017-04-27] MEDS: metFORMIN HCL 500 MG TABLET (FP) PO SCH (06:05)
[2017-04-27 08:53] LABS: HEMATOCRIT 27.5 % (32.4-45.2); HEMOGLOBIN 8.9 GM/dL (10.7-15.3); MCH 25.8 pg (25.7-33.7); MCHC 32.4 g/dl (32.0-36.0); MEAN CELL VOLUME 79.4 fl (80-96); MEAN PLT VOLUME 7.8 fl (7.5-11.1); PLATELET COUNT 378 K/MM3 (134-434); RBC 3.46 M/mm3 (3.60-5.2); RDW 15.8 % (11.6-15.6); WHITE BLOOD COUNT 8.6 K/mm3 (4.0-10.0)
[2017-04-27 09:09] LABS: ANION GAP 9 (8-16); BLOOD UREA NITROGEN 9 mg/dL (7-18); CALCIUM 7.8 mg/dL (8.5-10.1); CHLORIDE 108 mmol/L (98-107); CO2 26 mmol/L (21-32); GLUCOSE,RANDOM 104 mg/dL (74-106); POTASSIUM 4.2 mmol/L (3.5-5.1); SODIUM 143 mmol/L (136-145)
[2017-04-27 09:10] LABS: CREATININE 0.5 mg/dL (0.55-1.02)
--- NOTE | 2017-04-27 09:10 | PN ---
Teaching Attending Note Name of Resident: Ofe Landeros ATTENDING PHYSICIAN STATEMENT I saw and evaluated the patient. I reviewed the resident's note and discussed the case with the resident. I agree with the resident's findings and plan as documented. SUBJECTIVE:continues to have some knee pain but controlled. had BM last night. swelling and rash of the hands has resolved. denies Cp, SOB, fever, chills, N/V/ C/D OBJECTIVE: Last Vital Signs Temp Pulse Resp BP Pulse Ox 97.6 F 83 20 141/69 93 L 04/27/17 06:00 04/27/17 06:00 04/27/17 06:00 04/27/17 06:00 04/26/17 21:00 Intake & Output 04/24/17 04/25/17 04/26/17 04/27/17 23:59 23:59 23:59 23:59 Intake Total 15149 500 750 Output Total 800 2 600 Balance 80476 498 150 General NAD CV S1 S2 RRR no murmur/rub/gallop Lungs CTA B/L no wheezing/rales/rhonchi Extremities welt on the L forearm, rash and swelling of hands resolved ASSESSMENT AND PLAN: 72yo F wtih PMH DM and HTN presented to the ER without L septic knee which failed outpatient IV therapy 1. Septic knee-s/p L TKA hardware removal, I&D, placement of antibiotic spacer and VAC machine 04/14/17. requested RN to replace canister to evaluate if still bleeding into wound vac. looks more serous on top today. call placed out to ortho to notify them. WCx growing betancourt-sensitive pseudomonas. ON ampicillin day 4. ceftriaxone held last night due to possible allergic reaction. will need new PICC placement. PT. ID and ortho on board. F/u Cx 2. Constipation-likely exacerbated by opiates and fear of going in public. +BM last night. cont stool softeners 3. Rash on B/L hands- suspect allergic reaction to ceftriaxone. received benadryl yesterday. now improved. will d/w ID about abx 3. Microcytic iron deficicency/anemia of chronic disease- s/p 2 unit PRBC this admission. Hgb improved today. concern bleeding into wound vac. change canister. call placed out to ortho. on iron supplements. will need iron studies repeated in 3 months. 4. DM- A1c 6.1 on last admission. on metformin. diabetic diet. iss. bgm 5. HTN- controlled. cont home medications. 6. DVT- eliquis for DVT ppx per ortho recommendations. holding till speak with ortho
[2017-04-27] MEDS: GABAPENTIN 300 MG CAPSULE (FP) PO SCH ×2 (09:41→21:33)
[2017-04-27] MEDS: ASCORBIC ACID 500 MG TABLET (FP) PO SCH (09:42)
[2017-04-27] MEDS: LOSARTAN POTASSIUM 50 MG TABLET (FP) PO SCH (09:42)
[2017-04-27] MEDS: FERROUS SO4 325 MG TABLET (FP) PO SCH (09:42)
[2017-04-27] MEDS: MULTIVITAMINS (DAILY MVI) TABLET (FP) PO SCH (09:42)
[2017-04-27] MEDS: PANTOPRAZOLE 40 MG TABLET (FP) PO SCH (09:42)
[2017-04-27] MEDS: SENNOSIDES/DOCUSATE COMBO (SENNA PLUS) TABLET (UD) PO SCH ×2 (09:42→21:33)
[2017-04-27] MEDS: oxyCODONE HCL 10 MG SUSTAINED ACTING TABLET PO SCH ×2 (09:42→21:33)
[2017-04-27] MEDS: POLYETHYLENE GLYCOL 3350 119 GM BTL PO SCH (09:43)
[2017-04-27] MEDS: APIXABAN 2.5 MG TABLET PO SCH ×3 (09:44→21:34)
[2017-04-27] MEDS: CELECOXIB 200 MG CAPSULE PO SCH (09:44)
[2017-04-27] MEDS ORDERED: INSULIN (NOVOLOG) ASPART 100 UNITS/ML 10ML VIAL ONE ×2 (11:02→21:15)
[2017-04-27] MEDS: diphenhydrAMINE HCL 25 MG CAPSULE (FP) PO PRN ×2 (13:23→20:19)
--- NOTE | 2017-04-27 13:52 | PN ---
Progress Note, Physician History of Present Illness: Developed pruritic urticarial rash on trunk, extremities No tongue swelling, stridor , or wheeze No fever/ chills - Current Medication List Current Medications: Active Medications Acetaminophen (Tylenol -) 650 mg PO Q4H PRN Stop: 04/28/17 03:22 Last Admin: 04/26/17 23:35 Dose: 650 mg Acetaminophen (Tylenol -) 325 mg PO Q4H PRN Stop: 04/28/17 03:23 Al Hydroxide/Mg Hydroxide (Mylanta Oral Suspension -) 30 ml PO Q4H PRN PRN Reason: DYSPEPSIA Apixaban (Eliquis -) 2.5 mg PO BID [facility] Last Admin: 04/27/17 11:05 Dose: 2.5 mg Ascorbic Acid (Vitamin C -) 500 mg PO DAILY [facility] Last Admin: 04/27/17 09:42 Dose: 500 mg Celecoxib (Celebrex -) 200 mg PO DAILY [facility] Last Admin: 04/27/17 09:44 Dose: 200 mg Diphenhydramine HCl (Benadryl -) 25 mg PO Q6H PRN PRN Reason: FOR ITCHING Last Admin: 04/27/17 13:23 Dose: 25 mg Ferrous Sulfate (Feosol -) 325 mg PO DAILY [facility] Last Admin: 04/27/17 09:42 Dose: 325 mg Gabapentin (Neurontin -) 300 mg PO BID [facility] Stop: 04/28/17 09:59 Last Admin: 04/27/17 09:41 Dose: 300 mg Ampicillin Sodium 2 gm/ Sodium (Chloride) 100 mls @ 200 mls/hr IVPB Q4H-IV [facility] Last Admin: 04/27/17 09:44 Dose: 200 mls/hr Insulin Aspart (Novolog Vial Sliding Scale -) 1 vial SQ ACHS [facility] PRN Reason: Protocol Last Admin: 04/27/17 11:08 Dose: Not Given Losartan Potassium (Cozaar -) 50 mg PO DAILY [facility] Last Admin: 04/27/17 09:42 Dose: 50 mg Magnesium Hydroxide (Milk Of Magnesia -) 30 ml PO PRN PRN PRN Reason: CONSTIPATION Metformin HCl (Glucophage -) 500 mg PO DAILY@0700 [facility] Last Admin: 04/27/17 06:05 Dose: 500 mg Multivitamins/Minerals/Vitamin C (Tab-A-Vit -) 1 tab PO DAILY [facility] Last Admin: 04/27/17 09:42 Dose: 1 tab Ondansetron HCl (Zofran Injection) 4 mg IVPUSH Q4H PRN PRN Reason: NAUSEA AND/OR VOMITING Oxycodone HCl (Oxycontin -) 10 mg PO BID [facility] Last Admin: 04/27/17 09:42 Dose: 10 mg Oxycodone HCl (Roxicodone -) 10 mg PO Q4H PRN PRN Reason: PAIN LEVEL 6-10 Oxycodone HCl (Roxicodone -) 5 mg PO Q4H PRN PRN Reason: PAIN LEVEL 4 - 6 Pantoprazole Sodium (Protonix -) 40 mg PO DAILY [facility] Last Admin: 04/27/17 09:42 Dose: 40 mg Polyethylene Glycol (Miralax (For Daily Use) -) 17 gm PO DAILY [facility] Last Admin: 04/27/17 09:43 Dose: Not Given Senna/Docusate Sodium (Pericolace -) 1 tablet PO BID [facility] Last Admin: 04/27/17 09:42 Dose: 1 tablet - Objective Vital Signs: Vital Signs Temperature 97.6 F 04/27/17 06:00 Pulse Rate 83 04/27/17 06:00 Respiratory Rate 20 04/27/17 06:00 Blood Pressure 141/69 04/27/17 06:00 O2 Sat by Pulse Oximetry (%) 93 L 04/26/17 21:00 Constitutional: Yes: No Distress Eyes: Yes: Conjunctiva Clear Neck: Yes: Supple Cardiovascular: Yes: Regular Rate and Rhythm, S1, S2 Respiratory: No: Stridor, Wheezes Gastrointestinal: Yes: Normal Bowel Sounds, Soft, Abdomen, Obese. No: Tenderness Extremities: Yes: Other (VAC in place L LE) Edema: Yes Integumentary: Yes: Other (+ urticaria on lower back, abdomen, UE bilat, R LE) Labs: CBC, BMP 04/27/17 07:30 04/27/17 07:30 INR, PTT INR 1.24 (0.82-1.09) H 04/24/17 06:00 Assessment/Plan Hypersensitivity rxn, likely secondary to ceftriaxone S/P removal of infected L knee prosthesis, spacer placement Hold antibiotics Benadryl prn
--- NOTE | 2017-04-27 14:41 | PN ---
Physical Exam: SUBJECTIVE: Patient seen and examined. Given 1 Unit of PRBC @ 24:42. Offers no new complaints except for the same LLE pain with movement. She denies CP, SOB, dizziness, nausea, vomiting, and diarrhea. OBJECTIVE: Vital Signs Period Temp Pulse Resp BP Sys/Parnell Pulse Ox Last 24 Hr 97.6 F-99.2 F 83-104 20-24 114-141/58-69 93 GENERAL: Awake, alert, and fully oriented, in no acute distress. HEAD: Normal with no signs of trauma. EYES: Pupils equal, round and reactive to light EARS, NOSE, THROAT: oropharynx clear without exudates. Moist mucous membranes. NECK: supple without lymphadenopathy LUNGS: Breath sounds equal, clear to auscultation bilaterally. No wheezes, and no crackles. HEART: Regular rate and rhythm, normal S1 and S2 without murmur, rub or gallop. ABDOMEN: Soft, nontender, not distended, normoactive bowel sounds. MUSCULOSKELETAL: s/p surgery Left knee dressing with LLE immobilizer. VAC placed draining serosanguinous fluid (less sanguinous today). UPPER EXTREMITIES: 2+ pulses, No peripheral edema. LOWER EXTREMITIES: 2+ pulses, warm, well-perfused. 2+ Edema LLE PSYCHIATRIC: Cooperative. Good eye contact. Appropriate mood and affect. Laboratory Results - last 24 hr 04/25/17 04/26/17 04/26/17 12:45 06:00 17:05 WBC RBC Hgb Hct MCV MCH MCHC RDW Plt Count MPV Sodium Potassium Chloride Carbon Dioxide Anion Gap BUN Creatinine POC Glucometer 148 Random Glucose Calcium Iron 27 Blood Type A POSITIVE Crossmatch See Detail 04/26/17 04/26/17 04/27/17 19:00 22:03 06:04 WBC 8.6 RBC 2.85 L Hgb 7.1 L Hct 22.4 L MCV 78.8 L MCH 25.1 L MCHC 31.8 L RDW 16.1 H Plt Count 347 MPV 8.0 Sodium Potassium Chloride Carbon Dioxide Anion Gap BUN Creatinine POC Glucometer 149 108 Random Glucose Calcium Iron Blood Type Crossmatch 04/27/17 04/27/17 04/27/17 07:30 07:30 11:07 WBC 8.6 RBC 3.46 L D Hgb 8.9 L D Hct 27.5 L D MCV 79.4 L MCH 25.8 MCHC 32.4 RDW 15.8 H Plt Count 378 MPV 7.8 Sodium 143 Potassium 4.2 Chloride 108 H Carbon Dioxide 26 Anion Gap 9 BUN 9 Creatinine 0.5 L POC Glucometer 123 Random Glucose 104 Calcium 7.8 L Iron Blood Type Crossmatch Active Medications Generic Name Dose Route Start Last Admin Trade Name Freq PRN Reason Stop Dose Admin Acetaminophen 650 mg 04/25/17 03:23 04/26/17 23:35 Tylenol - PO 04/28/17 03:22 650 mg Q4H PRN Administration Acetaminophen 325 mg 04/25/17 03:24 Tylenol - PO 04/28/17 03:23 Q4H PRN Al Hydroxide/Mg Hydroxide 30 ml 04/25/17 01:46 Mylanta Oral Suspension - PO Q4H PRN DYSPEPSIA Apixaban 2.5 mg 04/25/17 10:00 04/27/17 11:05 Eliquis - PO 2.5 mg BID JOSE LUIS Administration Ascorbic Acid 500 mg 04/24/17 10:00 04/27/17 09:42 Vitamin C - PO 500 mg DAILY JOSE LUIS Administration Celecoxib 200 mg 04/25/17 10:00 04/27/17 09:44 Celebrex - PO 200 mg DAILY JOSE LUIS Administration Diphenhydramine HCl 25 mg 04/26/17 14:53 04/27/17 13:23 Benadryl - PO 25 mg Q6H PRN Administration FOR ITCHING Ferrous Sulfate 325 mg 04/26/17 10:30 04/27/17 09:42 Feosol - PO 325 mg DAILY JOSE LUIS Administration Gabapentin 300 mg 04/25/17 10:00 04/27/17 09:41 Neurontin - PO 04/28/17 09:59 300 mg BID JOSE LUIS Administration Insulin Aspart 1 vial 04/23/17 22:00 04/27/17 11:08 Novolog Vial Sliding Scale - SQ Not Given ACHS [facility] Protocol Losartan Potassium 50 mg 04/24/17 10:00 04/27/17 09:42 Cozaar - PO 50 mg DAILY JOSE LUIS Administration Magnesium Hydroxide 30 ml 04/25/17 01:46 Milk Of Magnesia - PO PRN PRN CONSTIPATION Metformin HCl 500 mg 04/25/17 07:00 04/27/17 06:05 Glucophage - PO 500 mg DAILY@0700 JOSE LUIS Administration Multivitamins/Minerals/Vitamin C 1 tab 04/24/17 10:00 04/27/17 09:42 Tab-A-Vit - PO 1 tab DAILY JOSE LUIS Administration Ondansetron HCl 4 mg 04/24/17 23:39 Zofran Injection IVPUSH Q4H PRN NAUSEA AND/OR VOMITING Oxycodone HCl 10 mg 04/23/17 23:00 04/27/17 09:42 Oxycontin - PO 10 mg BID JOSE LUIS Administration Oxycodone HCl 10 mg 04/25/17 03:23 Roxicodone - PO Q4H PRN PAIN LEVEL 6-10 Oxycodone HCl 5 mg 04/25/17 03:24 Roxicodone - PO Q4H PRN PAIN LEVEL 4 - 6 Pantoprazole Sodium 40 mg 04/24/17 10:00 04/27/17 09:42 Protonix - PO 40 mg DAILY JOSE LUIS Administration Polyethylene Glycol 17 gm 04/24/17 10:00 04/27/17 09:43 Miralax (For Daily Use) - PO Not Given DAILY JOSE LUIS Senna/Docusate Sodium 1 tablet 04/23/17 22:00 04/27/17 09:42 Pericolace - PO 1 tablet BID JOSE LUIS Administration ASSESSMENT/PLAN: Patient is a 72 yo F with a PMHx of HTN, pre-diabetes, s/p R TKR (05/17), s/p L TKR (01/16/17), presents after L TKR on 01/16 complicated by wound dehiscence s/ p mechanical fall to knee. #Left Septic Knee Joint secondary to wound Dehiscence -S/P left TKA removal 04/25 of hardware, I&D, placement of antibiotic spacer and VAC machine -Wound Vac with Sanguinous drainage (less sanguinous today) -HELD IV Abx: Ampicillin (day 4 today), due to Rash -Left knee cultures +Psuedomonas -Physical Therapy for deconditioning -ID Consulted: Dr. Wild -Held ASA 325mg -Oxycodone 10mg BID -2 mg IV morphine q4h PRN -Cont. Regular Diet #Anemia -s/p surgery -serosanguinous fluid in wound vac -s/p 2 units of PRBC last 04/26 -Follow H&H: FU repeat CBC #Opiate Induced Constipation -likely secondary to opiate use -Miralax #HTN/CAD -cont. Losartan 50mg #Pre-Diabetes -Last A1c 6.1 -Held Metformin -ISS -BGM #FEN -No fluids -WNL -Regular diet #PPx -Cont. Eliquis 2.5mg BID Visit type - Emergency Visit Emergency Visit: Yes ED Registration Date: 04/23/17 Care time: The patient presented to the Emergency Department on the above date and was hospitalized for further evaluation of their emergent condition. - New Patient This patient is new to me today: No - Critical Care Critical Care patient: No
[2017-04-27 15:23] LABS: HEMATOCRIT 27.7 % (32.4-45.2); MCH 25.7 pg (25.7-33.7); MCHC 32.5 g/dl (32.0-36.0); MEAN CELL VOLUME 78.9 fl (80-96); MEAN PLT VOLUME 7.9 fl (7.5-11.1); PLATELET COUNT 398 K/MM3 (134-434); RBC 3.51 M/mm3 (3.60-5.2); RDW 16.3 % (11.6-15.6); WHITE BLOOD COUNT 8.3 K/mm3 (4.0-10.0)
[2017-04-27] MEDS ORDERED: PT OWN MED DRAWER 7, Y5N ONE (17:46)
[2017-04-28] MEDS: INSULIN SLIDING SCALE (NOVOLOG) 1 VIAL SQ SCH ×4 (06:11→21:54)
[2017-04-28] MEDS: metFORMIN HCL 500 MG TABLET (FP) PO SCH (06:11)
[2017-04-28] MEDS: diphenhydrAMINE HCL 25 MG CAPSULE (FP) PO PRN (06:11)
--- NOTE | 2017-04-28 08:10 | PN ---
Progress Note (short form) - Note Progress Note: Cultures reviewed - growing Pseudomonas. Previous OR cultures from February grew Enterococcus. Cultures from January from wound care center grew both Pseudomonas and Enterococcus. Pt has history of contralateral-side (RIGHT LEG) non-healing wound for which she was treated for 3+ months by [facility] wound care center. Cultures taken there in September 2015 were reviewed in the [facility] EMR and grew both Enterococcus and Pseudomonas. 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 and is probably colonized with these bacteria. It is likely that she had both enterococcus and pseudomonas in her knee all along, and that is why she did not improve after the February I&D when she was placed on Ampicillin only. I would assume that there is probably still enterococcus in her knee even though it didn't grow on the latest cultures - it may have been suppressed by her 4 weeks of IV ampicillin. Her next long-term antibiotic should cover both of these pathogens. I will round this afternoon after my surgical cases because this is an infected patient. The overall plan for this patient is PICC line change then discharge to SNF on penitentiary IV abx. She will need VAC changes M/W/F. VAC change by nursing today with both black and white foam. For incisional VAC, put a layer of plastic or Tegaderms down first before applying the black foam so that the surrounding skin is protected and the only area exposed and in contact with the foam is the incision line itself. Do not place black foam directly on intact skin. Pt will need to f/u with me 2 weeks after discharge for suture removal. She will need to arrange ID f/u after discharge as well - she did not do this after the last surgery until I reminded her at the f/u appt. director long term care plan will be IV abx with monitoring of labs until infection is eradicated. Then she will f/u with Dr. Francisco Zimmerman at [facility] to schedule the second stage of the surgery, which is removal of the spacer and placement of a new total knee replacement. She may also require plastic surgery to do a flap or graft to cover the area of skin necrosis. SHE SHOULD CALL SOON AFTER DISCHARGE FOR A CONSULTATION WITH DR. ZIMMERMAN -
[2017-04-28 08:24] LABS: HEMATOCRIT 27.2 % (32.4-45.2); HEMOGLOBIN 8.7 GM/dL (10.7-15.3); MCH 25.5 pg (25.7-33.7); MCHC 32.1 g/dl (32.0-36.0); MEAN CELL VOLUME 79.6 fl (80-96); MEAN PLT VOLUME 7.6 fl (7.5-11.1); PLATELET COUNT 390 K/MM3 (134-434); RBC 3.41 M/mm3 (3.60-5.2); RDW 16.4 % (11.6-15.6); WHITE BLOOD COUNT 7.2 K/mm3 (4.0-10.0)
[2017-04-28 08:51] LABS: ANION GAP 7 (8-16); BLOOD UREA NITROGEN 6 mg/dL (7-18); CALCIUM 7.8 mg/dL (8.5-10.1); CHLORIDE 103 mmol/L (98-107); CO2 30 mmol/L (21-32); GLUCOSE,RANDOM 97 mg/dL (74-106); POTASSIUM 4.3 mmol/L (3.5-5.1); SODIUM 140 mmol/L (136-145)
[2017-04-28 08:54] LABS: CREATININE 0.6 mg/dL (0.55-1.02)
--- NOTE | 2017-04-28 09:29 | PATH ---
Surgical Pathology Report Patient Name: JOHNSON MAR [facility]. Rec. #: [id number] /Age/Gender: 1945 (Age: 72) / F Account: [id number] Location: [address] [place] [address] Taken: 04/24/2017 Received: 04/25/2017 Reported: 04/28/2017 Physicians: Calvin Jara M.D. Specimen(s) Received REMOVED LEFT TOTAL KNEE REPLACEMEAR Clinical History Infection associated with internal left knee prosthesis Final Diagnosis ORTHOPEDIC HARDWARE, LEFT KNEE, REMOVAL: ORTHOPEDIC HARDWARE CONSISTENT WITH KNEE PROSTHESIS (GROSS ONLY). Electronically Signed Foreign Rosales M.D. Gross Description Received fresh labeled "removed implants left total knee," are 5 white plastic and kirkpatrick metallic portions of hardware, consistent with a knee prosthesis. The specimens range from 3.3-8.0 cm in greatest dimension. No soft tissue is present. No sections are submitted, gross only. /04/26/2017 saudi04/26/2017
[2017-04-28] MEDS ORDERED: PT OWN MED DRAWER 7, Y5N ONE ×2 (10:25→21:51)
[2017-04-28] MEDS: MULTIVITAMINS (DAILY MVI) TABLET (FP) PO SCH (10:30)
[2017-04-28] MEDS: LOSARTAN POTASSIUM 50 MG TABLET (FP) PO SCH (10:30)
[2017-04-28] MEDS: CELECOXIB 200 MG CAPSULE PO SCH (10:30)
[2017-04-28] MEDS: APIXABAN 2.5 MG TABLET PO SCH ×2 (10:30→22:01)
[2017-04-28] MEDS: ASCORBIC ACID 500 MG TABLET (FP) PO SCH (10:30)
[2017-04-28] MEDS: SENNOSIDES/DOCUSATE COMBO (SENNA PLUS) TABLET (UD) PO SCH ×2 (10:30→22:01)
[2017-04-28] MEDS: PANTOPRAZOLE 40 MG TABLET (FP) PO SCH (10:31)
[2017-04-28] MEDS: oxyCODONE HCL 10 MG SUSTAINED ACTING TABLET PO SCH ×2 (10:31→22:01)
[2017-04-28] MEDS: FERROUS SO4 325 MG TABLET (FP) PO SCH (10:31)
[2017-04-28] MEDS: POLYETHYLENE GLYCOL 3350 119 GM BTL PO SCH (10:33)
--- NOTE | 2017-04-28 11:12 | PN ---
Progress Note, Physician Chief Complaint: Apparently experienced transient rash Ceftriaxone related ? as tolerated Amp for weeks - Current Medication List Current Medications: Active Medications Al Hydroxide/Mg Hydroxide (Mylanta Oral Suspension -) 30 ml PO Q4H PRN PRN Reason: DYSPEPSIA Apixaban (Eliquis -) 2.5 mg PO BID [facility] Last Admin: 04/28/17 10:30 Dose: 2.5 mg Ascorbic Acid (Vitamin C -) 500 mg PO DAILY [facility] Last Admin: 04/28/17 10:30 Dose: 500 mg Celecoxib (Celebrex -) 200 mg PO DAILY [facility] Last Admin: 04/28/17 10:30 Dose: 200 mg Diphenhydramine HCl (Benadryl -) 25 mg PO Q6H PRN PRN Reason: FOR ITCHING Last Admin: 04/28/17 06:11 Dose: 25 mg Ferrous Sulfate (Feosol -) 325 mg PO DAILY [facility] Last Admin: 04/28/17 10:31 Dose: 325 mg Insulin Aspart (Novolog Vial Sliding Scale -) 1 vial SQ ACHS [facility] PRN Reason: Protocol Last Admin: 04/28/17 06:11 Dose: Not Given Losartan Potassium (Cozaar -) 50 mg PO DAILY [facility] Last Admin: 04/28/17 10:30 Dose: 50 mg Magnesium Hydroxide (Milk Of Magnesia -) 30 ml PO PRN PRN PRN Reason: CONSTIPATION Metformin HCl (Glucophage -) 500 mg PO DAILY@0700 [facility] Last Admin: 04/28/17 06:11 Dose: 500 mg Multivitamins/Minerals/Vitamin C (Tab-A-Vit -) 1 tab PO DAILY [facility] Last Admin: 04/28/17 10:30 Dose: 1 tab Ondansetron HCl (Zofran Injection) 4 mg IVPUSH Q4H PRN PRN Reason: NAUSEA AND/OR VOMITING Oxycodone HCl (Oxycontin -) 10 mg PO BID [facility] Last Admin: 04/28/17 10:31 Dose: 10 mg Oxycodone HCl (Roxicodone -) 10 mg PO Q4H PRN PRN Reason: PAIN LEVEL 6-10 Oxycodone HCl (Roxicodone -) 5 mg PO Q4H PRN PRN Reason: PAIN LEVEL 4 - 6 Pantoprazole Sodium (Protonix -) 40 mg PO DAILY [facility] Last Admin: 04/28/17 10:31 Dose: 40 mg Polyethylene Glycol (Miralax (For Daily Use) -) 17 gm PO DAILY [facility] Last Admin: 04/28/17 10:33 Dose: Not Given Senna/Docusate Sodium (Pericolace -) 1 tablet PO BID [facility] Last Admin: 04/28/17 10:30 Dose: 1 tablet - Objective Vital Signs: Vital Signs Temperature 98.7 F 04/28/17 05:37 Pulse Rate 88 04/28/17 05:37 Respiratory Rate 20 04/28/17 05:37 Blood Pressure 136/66 04/28/17 05:37 O2 Sat by Pulse Oximetry (%) 95 04/27/17 21:00 Constitutional: Yes: Well Nourished, No Distress Eyes: Yes: WNL, Conjunctiva Clear Neck: Yes: WNL, Supple Cardiovascular: Yes: Regular Rate and Rhythm, S1, S2 Respiratory: Yes: WNL, Regular, CTA Bilaterally Gastrointestinal: Yes: WNL, Normal Bowel Sounds, Soft. No: Tenderness Extremities: Yes: Other (Dressing knee) Labs: CBC, BMP 04/28/17 07:45 04/28/17 07:45 INR, PTT INR 1.24 (0.82-1.09) H 04/24/17 06:00 Problem List - Problems (1) Infection of prosthetic left knee joint Code(s): T84.54XA - INFECT/INFLM REACTION DUE TO INTERNAL LEFT KNEE PROSTH, INIT Qualifiers: Encounter type: subsequent encounter Qualified Code(s): T84.54XD - Infection and inflammatory reaction due to internal left knee prosthesis, subsequent encounter Assessment/Plan Laboratory Tests 04/28/17 04/28/17 07:45 07:45 Hct 27.2 L Plt Count 390 BUN 6 L Creatinine 0.6 Assessment Infected prosthetic knee Originally E Faecalis Now Pseudomonas multiple cultures Need to treat both organisms however now limited by suspected cephalosporin allergy Further recommendation to follow Junito RYAN
--- NOTE | 2017-04-28 15:50 | PN ---
Physical Exam: SUBJECTIVE: Patient seen and examined. No acute events overnight. Offers no new complaints. Says she still has pain and weakness in her LLE. She denies chest pain, headache, nausea, vomiting and fever. OBJECTIVE: Vital Signs Period Temp Pulse Resp BP Sys/Parnell Pulse Ox Last 24 Hr 98.1 F-98.7 F 88-97 20-20 123-136/66-68 95 GENERAL: Awake, alert, and fully oriented, in no acute distress. HEAD: Normal with no signs of trauma. EYES: Pupils equal, round and reactive to light EARS, NOSE, THROAT: oropharynx clear without exudates. Moist mucous membranes. NECK: supple without lymphadenopathy LUNGS: Breath sounds equal, clear to auscultation bilaterally. No wheezes, and no crackles. HEART: Regular rate and rhythm, normal S1 and S2 without murmur, rub or gallop. ABDOMEN: Soft, nontender, not distended, normoactive bowel sounds. MUSCULOSKELETAL: s/p surgery Left knee dressing with LLE immobilizer, Surgical site: no erythema, or drainage. . VAC still draining blood (Less than yesterday ) UPPER EXTREMITIES: 2+ pulses, No peripheral edema. LOWER EXTREMITIES: 2+ pulses, warm, well-perfused. 2+ Edema LLE PSYCHIATRIC: Cooperative. Good eye contact. Appropriate mood and affect. Laboratory Results - last 24 hr 04/27/17 04/27/17 04/28/17 17:11 21:35 06:10 WBC RBC Hgb Hct MCV MCH MCHC RDW Plt Count MPV Sodium Potassium Chloride Carbon Dioxide Anion Gap BUN Creatinine POC Glucometer 158 158 111 Random Glucose Calcium 04/28/17 04/28/17 04/28/17 07:45 07:45 11:41 WBC 7.2 RBC 3.41 L Hgb 8.7 L Hct 27.2 L MCV 79.6 L MCH 25.5 L MCHC 32.1 RDW 16.4 H Plt Count 390 MPV 7.6 Sodium 140 Potassium 4.3 Chloride 103 Carbon Dioxide 30 Anion Gap 7 L BUN 6 L Creatinine 0.6 POC Glucometer 119 Random Glucose 97 Calcium 7.8 L Active Medications Generic Name Dose Route Start Last Admin Trade Name Freq PRN Reason Stop Dose Admin Al Hydroxide/Mg Hydroxide 30 ml 04/25/17 01:46 Mylanta Oral Suspension - PO Q4H PRN DYSPEPSIA Apixaban 2.5 mg 04/25/17 10:00 04/28/17 10:30 Eliquis - PO 2.5 mg BID [facility] Administration Ascorbic Acid 500 mg 04/24/17 10:00 04/28/17 10:30 Vitamin C - PO 500 mg DAILY JOSE LUIS Administration Celecoxib 200 mg 04/25/17 10:00 04/28/17 10:30 Celebrex - PO 200 mg DAILY JOSE LUIS Administration Diphenhydramine HCl 25 mg 04/26/17 14:53 04/28/17 06:11 Benadryl - PO 25 mg Q6H PRN Administration FOR ITCHING Ferrous Sulfate 325 mg 04/26/17 10:30 04/28/17 10:31 Feosol - PO 325 mg DAILY [facility] Administration Insulin Aspart 1 vial 04/23/17 22:00 04/28/17 11:42 Novolog Vial Sliding Scale - SQ Not Given ACHS [facility] Protocol Losartan Potassium 50 mg 04/24/17 10:00 04/28/17 10:30 Cozaar - PO 50 mg DAILY [facility] Administration Magnesium Hydroxide 30 ml 04/25/17 01:46 Milk Of Magnesia - PO PRN PRN CONSTIPATION Metformin HCl 500 mg 04/25/17 07:00 04/28/17 06:11 Glucophage - PO 500 mg DAILY@0700 [facility] Administration Multivitamins/Minerals/Vitamin C 1 tab 04/24/17 10:00 04/28/17 10:30 Tab-A-Vit - PO 1 tab DAILY [facility] Administration Ondansetron HCl 4 mg 04/24/17 23:39 Zofran Injection IVPUSH Q4H PRN NAUSEA AND/OR VOMITING Oxycodone HCl 10 mg 04/23/17 23:00 04/28/17 10:31 Oxycontin - PO 10 mg BID [facility] Administration Oxycodone HCl 10 mg 04/25/17 03:23 Roxicodone - PO Q4H PRN PAIN LEVEL 6-10 Oxycodone HCl 5 mg 04/25/17 03:24 Roxicodone - PO Q4H PRN PAIN LEVEL 4 - 6 Pantoprazole Sodium 40 mg 04/24/17 10:00 04/28/17 10:31 Protonix - PO 40 mg DAILY [facility] Administration Polyethylene Glycol 17 gm 04/24/17 10:00 04/28/17 10:33 Miralax (For Daily Use) - PO Not Given DAILY JOSE LUIS Senna/Docusate Sodium 1 tablet 04/23/17 22:00 04/28/17 10:30 Pericolace - PO 1 tablet BID JOSE LUIS Administration ASSESSMENT/PLAN: Patient is a 72 yo F with a PMHx of HTN, pre-diabetes, s/p R TKR (05/17), s/p L TKR (01/16/17), presents after L TKR on 01/16 complicated by wound dehiscence s/ p mechanical fall to knee. #Left Septic Knee Joint secondary to wound Dehiscence -S/P left TKA removal 04/25 of hardware, I&D, placement of antibiotic spacer and VAC machine -Wound Vac with minimal Sanguinous drainage (less sanguinous today) -HELD IV Abx: Ampicillin (completed 4 days) due to Rash (Cephalosporin reaction) . -Started Daptomycin (Day 1) for now now. Waiting final ID abx selection. -Patient will need PICC line prior to discharge -Left knee cultures +Psuedomonas -Physical Therapy for deconditioning -ID Consulted: Dr. Wild, will consider ABx. -Held ASA 325mg -Oxycodone 10mg BID -2 mg IV morphine q4h PRN -Cont. Regular Diet #Anemia -s/p surgery -serosanguinous fluid in wound vac -s/p 2 units of PRBC last 04/26 -Follow H&H #Opiate Induced Constipation -likely secondary to opiate use -Miralax #HTN/CAD -cont. Losartan 50mg #Pre-Diabetes -Last A1c 6.1 -Held Metformin -ISS -BGM #FEN -No fluids -WNL -Regular diet #PPx -Cont. Eliquis 2.5mg BID -Once Abx decision decided, will likely discharge to subacute rehab with PICC line. Visit type - Emergency Visit Emergency Visit: Yes ED Registration Date: 04/23/17 Care time: The patient presented to the Emergency Department on the above date and was hospitalized for further evaluation of their emergent condition. - New Patient This patient is new to me today: Yes Date on this admission: 04/28/17 - Critical Care Critical Care patient: No
--- NOTE | 2017-04-28 16:56 | PN ---
Teaching Attending Note Name of Resident: Ofe Landeros ATTENDING PHYSICIAN STATEMENT I saw and evaluated the patient. I reviewed the resident's note and discussed the case with the resident. I agree with the resident's findings and plan as documented. SUBJECTIVE:states pain is controlled. nervous to get out of bed with leg. denies Cp, SOB, fever, chills, N/V/C/D OBJECTIVE: Last Vital Signs Temp Pulse Resp BP Pulse Ox 100 F H 101 H 22 152/62 95 04/28/17 15:05 04/28/17 15:05 04/28/17 15:05 04/28/17 15:05 04/27/17 21:00 General NAD CV S1 S2 RRR no murmur/rub/gallop Lungs CTA B/L no wheezing/rales/rhonchi Extremities rash resolved. ASSESSMENT AND PLAN: 72yo F wtih PMH DM and HTN presented to the ER without L septic knee which failed outpatient IV therapy 1. Septic knee-s/p L TKA hardware removal, I&D, placement of antibiotic spacer and VAC machine 04/14/17. bloody drainage has decreased. Wcx growing betancourt- sensitive pseudomonas but since suspected cephalosporin reaction bx were held. will treat with Dapto for now. will need to get final abx selection from ID. will need new PICC line prior to discharge. encourage oob to chair. TTWB as tolerated. ID and ortho on board. F/u Cx 2. Constipation-likely exacerbated by opiates and fear of going in public. +BM the other day. cont stool softeners 3. Rash on B/L hands- suspect allergic reaction to ceftriaxone. rash now resolved. 3. Microcytic iron deficiency/anemia of chronic disease- s/p 2 unit PRBC this admission. Hgb stable. on iron supplements. will need iron studies repeated in 3 months. 4. DM- A1c 6.1 on last admission. on metformin. diabetic diet. iss. bgm 5. HTN- controlled. cont home medications. 6. DVT- eliquis for DVT ppx 7. only walked 15 ft with PT. Will need ANTHONY placement. KAMERON sent. awaiting for bed availability
[2017-04-28] MEDS: MEROPENEM 1 GM PUSH 1 GM/20 ML DISP.SYRIN IVPUSH SCH (18:30)
[2017-04-28] MEDS: DAPTOMYCIN IVPB SCH (18:50)
[2017-04-28] MEDS: SODIUM CHLORIDE IVPB SCH (18:50)
[2017-04-28] MEDS: oxyCODONE HCL 5 MG TABLET PO PRN (18:56)
[2017-04-29] MEDS: MEROPENEM 1 GM PUSH 1 GM/20 ML DISP.SYRIN IVPUSH SCH ×3 (02:49→18:14)
[2017-04-29] MEDS: INSULIN SLIDING SCALE (NOVOLOG) 1 VIAL SQ SCH ×5 (06:43→21:27)
[2017-04-29] MEDS: metFORMIN HCL 500 MG TABLET (FP) PO SCH (06:43)
[2017-04-29] MEDS: diphenhydrAMINE HCL 25 MG CAPSULE (FP) PO PRN ×2 (06:43→19:15)
[2017-04-29] MEDS: oxyCODONE HCL 5 MG TABLET PO PRN (06:46)
--- NOTE | 2017-04-29 07:24 | PN ---
Physical Exam: SUBJECTIVE: Patient seen and examined. No acute events over night. Says she feels much better today except for some itching at the surgical site. Less pain on her LLE. denies chest pain, sob, dizziness, nausea, vomiting, fevers. OBJECTIVE: Vital Signs Period Temp Pulse Resp BP Sys/Parnell Pulse Ox Last 24 Hr 99.8 F-100 F 90-101 20-22 145-152/62-71 95 GENERAL: Awake, alert, and fully oriented, in no acute distress. HEAD: Normal with no signs of trauma. EYES: Pupils equal, round and reactive to light EARS, NOSE, THROAT: oropharynx clear without exudates. Moist mucous membranes. NECK: supple without lymphadenopathy LUNGS: Breath sounds equal, clear to auscultation bilaterally. No wheezes, and no crackles. HEART: Regular rate and rhythm, normal S1 and S2 without murmur, rub or gallop. ABDOMEN: Soft, nontender, not distended, normoactive bowel sounds. MUSCULOSKELETAL: s/p surgery Left knee dressing, Surgical site: macular rash around surgical site, serous drainage. VAC still draining blood (Less than yesterday) Back: Macular rash in left flank area extending to the left thigh. UPPER EXTREMITIES: 2+ pulses, No peripheral edema. LOWER EXTREMITIES: 2+ pulses, warm, well-perfused. 2+ Edema LLE PSYCHIATRIC: Cooperative. Good eye contact. Appropriate mood and affect. Laboratory Results - last 24 hr 04/23/17 04/28/17 04/28/17 13:53 07:45 07:45 WBC 7.2 RBC 3.41 L Hgb 8.7 L Hct 27.2 L MCV 79.6 L MCH 25.5 L MCHC 32.1 RDW 16.4 H Plt Count 390 MPV 7.6 Sodium 140 Potassium 4.3 Chloride 103 Carbon Dioxide 30 Anion Gap 7 L BUN 6 L Creatinine 0.6 POC Glucometer Random Glucose 97 Calcium 7.8 L Blood Type A POSITIVE Antibody Screen Negative Crossmatch See Detail 04/28/17 04/28/17 04/28/17 11:41 17:07 21:05 WBC RBC Hgb Hct MCV MCH MCHC RDW Plt Count MPV Sodium Potassium Chloride Carbon Dioxide Anion Gap BUN Creatinine POC Glucometer 119 141 112 Random Glucose Calcium Blood Type Antibody Screen Crossmatch 04/29/17 06:42 WBC RBC Hgb Hct MCV MCH MCHC RDW Plt Count MPV Sodium Potassium Chloride Carbon Dioxide Anion Gap BUN Creatinine POC Glucometer 108 Random Glucose Calcium Blood Type Antibody Screen Crossmatch Active Medications Generic Name Dose Route Start Last Admin Trade Name Freq PRN Reason Stop Dose Admin Al Hydroxide/Mg Hydroxide 30 ml 04/25/17 01:46 Mylanta Oral Suspension - PO Q4H PRN DYSPEPSIA Apixaban 2.5 mg 04/25/17 10:00 04/28/17 22:01 Eliquis - PO 2.5 mg BID JOSE LUIS Administration Ascorbic Acid 500 mg 04/24/17 10:00 04/28/17 10:30 Vitamin C - PO 500 mg DAILY JOSE LUIS Administration Celecoxib 200 mg 04/25/17 10:00 04/28/17 10:30 Celebrex - PO 200 mg DAILY JOSE LUIS Administration Diphenhydramine HCl 25 mg 04/26/17 14:53 04/29/17 06:43 Benadryl - PO 25 mg Q6H PRN Administration FOR ITCHING Ferrous Sulfate 325 mg 04/26/17 10:30 04/28/17 10:31 Feosol - PO 325 mg DAILY JOSE LUIS Administration Daptomycin 540 mg/ Sodium 100 mls @ 200 mls/hr 04/28/17 18:00 04/28/17 18:50 Chloride IVPB 200 mls/hr DAILY@1800 JOSE LUIS Administration Protocol Meropenem 1 gm in 20 mls @ 240 mls/hr 04/28/17 16:00 04/29/17 02:49 Merrem (Restricted To Id) - IVPUSH 240 mls/hr Q8H-IV JOSE LUIS Administration Protocol Insulin Aspart 1 vial 04/23/17 22:00 04/29/17 06:43 Novolog Vial Sliding Scale - SQ Not Given ACHS JOSE LUIS Protocol Losartan Potassium 50 mg 04/24/17 10:00 04/28/17 10:30 Cozaar - PO 50 mg DAILY JOSE LUIS Administration Magnesium Hydroxide 30 ml 04/25/17 01:46 Milk Of Magnesia - PO PRN PRN CONSTIPATION Metformin HCl 500 mg 04/25/17 07:00 04/29/17 06:43 Glucophage - PO 500 mg DAILY@0700 JOSE LUIS Administration Multivitamins/Minerals/Vitamin C 1 tab 04/24/17 10:00 04/28/17 10:30 Tab-A-Vit - PO 1 tab DAILY JOSE LUIS Administration Ondansetron HCl 4 mg 04/24/17 23:39 Zofran Injection IVPUSH Q4H PRN NAUSEA AND/OR VOMITING Oxycodone HCl 10 mg 04/23/17 23:00 04/28/17 22:01 Oxycontin - PO 10 mg BID JOSE LUIS Administration Oxycodone HCl 10 mg 04/25/17 03:23 04/29/17 06:46 Roxicodone - PO 10 mg Q4H PRN Administration PAIN LEVEL 6-10 Oxycodone HCl 5 mg 04/25/17 03:24 Roxicodone - PO Q4H PRN PAIN LEVEL 4 - 6 Pantoprazole Sodium 40 mg 04/24/17 10:00 04/28/17 10:31 Protonix - PO 40 mg DAILY JOSE LUIS Administration Polyethylene Glycol 17 gm 04/24/17 10:00 04/28/17 10:33 Miralax (For Daily Use) - PO Not Given DAILY JOSE LUIS Senna/Docusate Sodium 1 tablet 04/23/17 22:00 04/28/17 22:01 Pericolace - PO 1 tablet BID JOSE LUIS Administration ASSESSMENT/PLAN: Patient is a 72 yo F with a PMHx of HTN, pre-diabetes, s/p R TKR (05/17), s/p L TKR (01/16/17), presents after L TKR on 01/16 complicated by wound dehiscence s/ p mechanical fall to knee. #Left Septic Knee Joint secondary to wound Dehiscence -S/P left TKA removal 04/25 of hardware, I&D, placement of antibiotic spacer and VAC machine -Wound Vac with minimal Sanguinous drainage (less sanguinous today) -HELD IV Abx: Ampicillin (completed 4 days) due to Hypersensitivity rxn, likely secondary to ceftriaxone -Cont. Daptomycin (Day 2), (Meropenem day 1) -Patient will need PICC line prior to discharge -Left knee cultures +Psuedomonas -Physical Therapy for deconditioning -ID Consulted: Dr. Wild -Held ASA 325mg -Oxycodone 10mg BID -2 mg IV morphine q4h PRN -Cont. Regular Diet #Rash -improved -Benadryl PRN #Anemia -s/p surgery -serosanguinous fluid in wound vac -s/p 2 units of PRBC last 04/26 -Follow H&H #Opiate Induced Constipation -likely secondary to opiate use -Miralax #HTN/CAD -cont. Losartan 50mg #Pre-Diabetes -Last A1c 6.1 -Held Metformin -ISS -BGM #FEN -No fluids -WNL -Regular diet #PPx -Cont. Eliquis 2.5mg BID -Once Abx decision decided, will likely discharge to subacute rehab with PICC line. Visit type - Emergency Visit Emergency Visit: Yes ED Registration Date: 04/23/17 Care time: The patient presented to the Emergency Department on the above date and was hospitalized for further evaluation of their emergent condition. - New Patient This patient is new to me today: No - Critical Care Critical Care patient: No
--- NOTE | 2017-04-29 07:30 | PN ---
Physical Exam: SUBJECTIVE: Patient seen and examined OBJECTIVE: Vital Signs Period Temp Pulse Resp BP Sys/Parnell Pulse Ox Last 24 Hr 99.8 F-100 F 90-101 20-22 145-152/62-71 95 GENERAL: The patient is awake, alert, and fully oriented, in no acute distress. HEAD: Normal with no signs of trauma. EYES: PERRL, extraocular movements intact, sclera anicteric, conjunctiva clear. No ptosis. ENT: Ears normal, nares patent, oropharynx clear without exudates, moist mucous membranes. NECK: Trachea midline, full range of motion, supple. LUNGS: Breath sounds equal, clear to auscultation bilaterally, no wheezes, no crackles, no accessory muscle use. HEART: Regular rate and rhythm, S1, S2 without murmur, rub or gallop. ABDOMEN: Soft, nontender, nondistended, normoactive bowel sounds, no guarding, no rebound, no hepatosplenomegaly, no masses. EXTREMITIES: 2+ pulses, warm, well-perfused, no edema. NEUROLOGICAL: Cranial nerves II through XII grossly intact. Normal speech, gait not observed. PSYCH: Normal mood, normal affect. SKIN: Warm, dry, normal turgor, no rashes or lesions noted Laboratory Results - last 24 hr 04/23/17 04/28/17 04/28/17 13:53 07:45 07:45 WBC 7.2 RBC 3.41 L Hgb 8.7 L Hct 27.2 L MCV 79.6 L MCH 25.5 L MCHC 32.1 RDW 16.4 H Plt Count 390 MPV 7.6 Sodium 140 Potassium 4.3 Chloride 103 Carbon Dioxide 30 Anion Gap 7 L BUN 6 L Creatinine 0.6 POC Glucometer Random Glucose 97 Calcium 7.8 L Blood Type A POSITIVE Antibody Screen Negative Crossmatch See Detail 04/28/17 04/28/17 04/28/17 11:41 17:07 21:05 WBC RBC Hgb Hct MCV MCH MCHC RDW Plt Count MPV Sodium Potassium Chloride Carbon Dioxide Anion Gap BUN Creatinine POC Glucometer 119 141 112 Random Glucose Calcium Blood Type Antibody Screen Crossmatch 04/29/17 06:42 WBC RBC Hgb Hct MCV MCH MCHC RDW Plt Count MPV Sodium Potassium Chloride Carbon Dioxide Anion Gap BUN Creatinine POC Glucometer 108 Random Glucose Calcium Blood Type Antibody Screen Crossmatch Active Medications Generic Name Dose Route Start Last Admin Trade Name Freq PRN Reason Stop Dose Admin Al Hydroxide/Mg Hydroxide 30 ml 04/25/17 01:46 Mylanta Oral Suspension - PO Q4H PRN DYSPEPSIA Apixaban 2.5 mg 04/25/17 10:00 04/28/17 22:01 Eliquis - PO 2.5 mg BID JOSE LUIS Administration Ascorbic Acid 500 mg 04/24/17 10:00 04/28/17 10:30 Vitamin C - PO 500 mg DAILY JOSE LUIS Administration Celecoxib 200 mg 04/25/17 10:00 04/28/17 10:30 Celebrex - PO 200 mg DAILY JOSE LUIS Administration Diphenhydramine HCl 25 mg 04/26/17 14:53 04/29/17 06:43 Benadryl - PO 25 mg Q6H PRN Administration FOR ITCHING Ferrous Sulfate 325 mg 04/26/17 10:30 04/28/17 10:31 Feosol - PO 325 mg DAILY JOSE LUIS Administration Daptomycin 540 mg/ Sodium 100 mls @ 200 mls/hr 04/28/17 18:00 04/28/17 18:50 Chloride IVPB 200 mls/hr DAILY@1800 [facility] Administration Protocol Meropenem 1 gm in 20 mls @ 240 mls/hr 04/28/17 16:00 04/29/17 02:49 Merrem (Restricted To Id) - IVPUSH 240 mls/hr Q8H-IV JOSE LUIS Administration Protocol Insulin Aspart 1 vial 04/23/17 22:00 04/29/17 06:43 Novolog Vial Sliding Scale - SQ Not Given ACHS [facility] Protocol Losartan Potassium 50 mg 04/24/17 10:00 04/28/17 10:30 Cozaar - PO 50 mg DAILY JOSE LUIS Administration Magnesium Hydroxide 30 ml 04/25/17 01:46 Milk Of Magnesia - PO PRN PRN CONSTIPATION Metformin HCl 500 mg 04/25/17 07:00 04/29/17 06:43 Glucophage - PO 500 mg DAILY@0700 [facility] Administration Multivitamins/Minerals/Vitamin C 1 tab 04/24/17 10:00 04/28/17 10:30 Tab-A-Vit - PO 1 tab DAILY JOSE LUIS Administration Ondansetron HCl 4 mg 04/24/17 23:39 Zofran Injection IVPUSH Q4H PRN NAUSEA AND/OR VOMITING Oxycodone HCl 10 mg 04/23/17 23:00 04/28/17 22:01 Oxycontin - PO 10 mg BID JOSE LUIS Administration Oxycodone HCl 10 mg 04/25/17 03:23 04/29/17 06:46 Roxicodone - PO 10 mg Q4H PRN Administration PAIN LEVEL 6-10 Oxycodone HCl 5 mg 04/25/17 03:24 Roxicodone - PO Q4H PRN PAIN LEVEL 4 - 6 Pantoprazole Sodium 40 mg 04/24/17 10:00 04/28/17 10:31 Protonix - PO 40 mg DAILY JOSE LUIS Administration Polyethylene Glycol 17 gm 04/24/17 10:00 04/28/17 10:33 Miralax (For Daily Use) - PO Not Given DAILY JOSE LUIS Senna/Docusate Sodium 1 tablet 04/23/17 22:00 04/28/17 22:01 Pericolace - PO 1 tablet BID JOSE LUIS Administration ASSESSMENT/PLAN:
[2017-04-29] MEDS: VANCOMYCIN 1,000 MG in DEXTROSE 5%-WATER - 250 ML IVPB SCH ×2 (07:58→07:59)
[2017-04-29 08:35] LABS: HEMATOCRIT 28.2 % (32.4-45.2); MCH 25.4 pg (25.7-33.7); MEAN CELL VOLUME 79.4 fl (80-96); MEAN PLT VOLUME 7.6 fl (7.5-11.1); PLATELET COUNT 432 K/MM3 (134-434); RBC 3.55 M/mm3 (3.60-5.2); WHITE BLOOD COUNT 7.5 K/mm3 (4.0-10.0)
[2017-04-29 09:15] LABS: ANION GAP 7 (8-16); BLOOD UREA NITROGEN 6 mg/dL (7-18); CHLORIDE 103 mmol/L (98-107); CO2 29 mmol/L (21-32); CREATININE 0.5 mg/dL (0.55-1.02); GLUCOSE,RANDOM 97 mg/dL (74-106); POTASSIUM 4.4 mmol/L (3.5-5.1); SODIUM 139 mmol/L (136-145)
[2017-04-29] MEDS ORDERED: PT OWN MED DRAWER 7, Y5N ONE ×3 (09:29→21:18)
[2017-04-29] MEDS: oxyCODONE HCL 10 MG SUSTAINED ACTING TABLET PO SCH ×2 (09:35→21:26)
[2017-04-29] MEDS: APIXABAN 2.5 MG TABLET PO SCH ×2 (09:35→21:27)
[2017-04-29] MEDS: LOSARTAN POTASSIUM 50 MG TABLET (FP) PO SCH (09:35)
[2017-04-29] MEDS: FERROUS SO4 325 MG TABLET (FP) PO SCH (09:35)
[2017-04-29] MEDS: PANTOPRAZOLE 40 MG TABLET (FP) PO SCH (09:35)
[2017-04-29] MEDS: MULTIVITAMINS (DAILY MVI) TABLET (FP) PO SCH (09:35)
[2017-04-29] MEDS: SENNOSIDES/DOCUSATE COMBO (SENNA PLUS) TABLET (UD) PO SCH ×2 (09:35→21:27)
[2017-04-29] MEDS: ASCORBIC ACID 500 MG TABLET (FP) PO SCH (09:35)
[2017-04-29] MEDS: CELECOXIB 200 MG CAPSULE PO SCH (09:35)
[2017-04-29] MEDS: POLYETHYLENE GLYCOL 3350 119 GM BTL PO SCH (09:36)
[2017-04-29] MEDS ORDERED: oxyCODONE HCL 5 MG TABLET PO PRN (14:53)
[2017-04-29] MEDS ORDERED: ACETAMINOPHEN 325 MG TABLET (FP) PO PRN (14:54)
--- NOTE | 2017-04-29 14:56 | PN ---
Teaching Attending Note Name of Resident: Ofe Landeros ATTENDING PHYSICIAN STATEMENT Time of evaluation: 10:45 AM I saw and evaluated the patient. I reviewed the resident's note and discussed the case with the resident. I agree with the resident's findings and plan as documented. SUBJECTIVE: patient seen and examined. left leg pain under control, no new complaints. OBJECTIVE: Vital Signs Period Temp Pulse Resp BP Sys/Parnell Pulse Ox Last 24 Hr 98.6 F-100 F 90-101 20-22 124-152/60-71 95-95 Intake & Output 04/26/17 04/27/17 04/28/17 04/29/17 23:59 23:59 23:59 23:59 Intake Total 750 1000 200 Output Total 600 400 Balance 150 600 200 general: sitting in bed, pleasant, no acute distress extremities: left knee vertical incision, clean with minimal surrounding tenderness, no erythema or discharge, Wound Vac in place with some surrounding swelling, positive DP pulses. Home Medication List Medication Instructions Recorded Confirmed Type Losartan Potassium 50 mg PO DAILY 01/14/17 04/23/17 History Metformin HCl 500 mg PO DAILY 01/14/17 04/23/17 History Ascorbic Acid [Vitamin C -] 500 mg PO DAILY 03/14/17 04/23/17 History Active Medications Generic Name Dose Route Start Last Admin Trade Name Freq PRN Reason Stop Dose Admin Acetaminophen 325 mg 04/29/17 14:54 Tylenol - PO Q4H PRN PAIN Al Hydroxide/Mg Hydroxide 30 ml 04/25/17 01:46 Mylanta Oral Suspension - PO Q4H PRN DYSPEPSIA Apixaban 2.5 mg 04/25/17 10:00 04/29/17 09:35 Eliquis - PO 2.5 mg BID JOSE LUIS Administration Ascorbic Acid 500 mg 04/24/17 10:00 04/29/17 09:35 Vitamin C - PO 500 mg DAILY JOSE LUIS Administration Celecoxib 200 mg 04/25/17 10:00 04/29/17 09:35 Celebrex - PO 200 mg DAILY JOSE LUIS Administration Diphenhydramine HCl 25 mg 04/26/17 14:53 04/29/17 06:43 Benadryl - PO 25 mg Q6H PRN Administration FOR ITCHING Ferrous Sulfate 325 mg 04/26/17 10:30 04/29/17 09:35 Feosol - PO 325 mg DAILY JOSE LUIS Administration Daptomycin 540 mg/ Sodium 100 mls @ 200 mls/hr 04/28/17 18:00 04/28/17 18:50 Chloride IVPB 200 mls/hr DAILY@1800 JOSE LUIS Administration Protocol Meropenem 1 gm in 20 mls @ 240 mls/hr 04/28/17 16:00 04/29/17 09:35 Merrem (Restricted To Id) - IVPUSH 240 mls/hr Q8H-IV JOSE LUIS Administration Protocol Insulin Aspart 1 vial 04/23/17 22:00 04/29/17 11:20 Novolog Vial Sliding Scale - SQ Not Given ACHS JOSE LUIS Protocol Losartan Potassium 50 mg 04/24/17 10:00 04/29/17 09:35 Cozaar - PO 50 mg DAILY JOSE LUIS Administration Magnesium Hydroxide 30 ml 04/25/17 01:46 Milk Of Magnesia - PO PRN PRN CONSTIPATION Metformin HCl 500 mg 04/25/17 07:00 04/29/17 06:43 Glucophage - PO 500 mg DAILY@0700 JOSE LUIS Administration Multivitamins/Minerals/Vitamin C 1 tab 04/24/17 10:00 04/29/17 09:35 Tab-A-Vit - PO 1 tab DAILY JOSE LUIS Administration Ondansetron HCl 4 mg 04/24/17 23:39 Zofran Injection IVPUSH Q4H PRN NAUSEA AND/OR VOMITING Oxycodone HCl 10 mg 04/23/17 23:00 04/29/17 09:35 Oxycontin - PO 10 mg BID JOSE LUIS Administration Oxycodone HCl 5 mg 04/29/17 14:53 Roxicodone - PO TID PRN PAIN LEVEL 7 - 10 Pantoprazole Sodium 40 mg 04/24/17 10:00 04/29/17 09:35 Protonix - PO 40 mg DAILY JOSE LUIS Administration Polyethylene Glycol 17 gm 04/24/17 10:00 04/29/17 09:36 Miralax (For Daily Use) - PO 17 grams DAILY JOSE LUIS Administration Senna/Docusate Sodium 1 tablet 04/23/17 22:00 04/29/17 09:35 Pericolace - PO 1 tablet BID JOSE LUIS Administration Laboratory Results - last 24 hr 04/23/17 04/28/17 04/28/17 13:53 17:07 21:05 WBC RBC Hgb Hct MCV MCH MCHC RDW Plt Count MPV Sodium Potassium Chloride Carbon Dioxide Anion Gap BUN Creatinine POC Glucometer 141 112 Random Glucose Calcium Blood Type A POSITIVE Antibody Screen Negative Crossmatch See Detail 04/29/17 04/29/17 04/29/17 06:42 08:00 08:00 WBC 7.5 RBC 3.55 L Hgb 9.0 L Hct 28.2 L MCV 79.4 L MCH 25.4 L MCHC 32.0 RDW 17.0 H Plt Count 432 MPV 7.6 Sodium 139 Potassium 4.4 Chloride 103 Carbon Dioxide 29 Anion Gap 7 L BUN 6 L Creatinine 0.5 L POC Glucometer 108 Random Glucose 97 Calcium 8.0 L Blood Type Antibody Screen Crossmatch 04/29/17 11:19 WBC RBC Hgb Hct MCV MCH MCHC RDW Plt Count MPV Sodium Potassium Chloride Carbon Dioxide Anion Gap BUN Creatinine POC Glucometer 113 Random Glucose Calcium Blood Type Antibody Screen Crossmatch Microbiology 04/23/17 14:28 Blood - Peripheral Venous Blood Culture - Final NO GROWTH AFTER 5 DAYS INCUBATION 04/23/17 14:28 Blood - Peripheral Venous Blood Culture - Final NO GROWTH AFTER 5 DAYS INCUBATION 04/24/17 07:45 Knee - Left Gram Stain - Final 04/24/17 07:45 Knee - Left Wound Culture - Final Pseudomonas Aeruginosa 04/24/17 07:45 Knee - Left Gram Stain - Final 04/24/17 07:45 Knee - Left Wound Culture - Final Pseudomonas Aeruginosa 04/24/17 07:45 Tissue-Other Gram Stain - Final 04/24/17 07:45 Tissue-Other Tissue Culture - Final Pseudomonas Aeruginosa 04/24/17 07:45 Tissue-Other Anaerobic Culture - Final NO ANAEROBES WERE ISOLATED 04/23/17 16:00 Urine - Urine Clean Catch Urine Culture - Final Contaminated: Please Repeat ASSESSMENT AND PLAN: 72yo F wtih PMH DM and HTN 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/I&D/placement of antibiotic spacer and VAC machine 04/25/2017 -Rash bilateral hands, ?Ceftriaxone allergy,resolved now with scant left lower back maculopapular rash -Left total knee arthroplasty 01/16/2017, complicated by mechanical fall/wound dehiscence, treated with PO abx and wound care with progressive necrosis and drainage s/p irrigation and debridement/Poly exchange/Antibiotic spacer, cultures with E faecalis, d/wallace on ampicillin then with no ID follow up since till day prior to admission -Constipation -Microcytic iron deficiency anemia/anemia of chronic disease -DM A1c 6.1 -HTN Plan: Possible concern for ceftriaxone allergy this admission. ID input noted, meropenem/daptomycin day 2, discuss with ID for further antibiotic recs. Wound cultures with pseudomonas this time (prior in 02/2017 with Enterococcas faecalis) Orthopedic input noted. PLan for outpatient follow up with Dr. Zimmerman at [facility] for second phase of surgery that would include removal of spacer and new total Knee replacement +/- plastic surgery with flap. taper oxycodone. Bowel regimen. Benadyl prn for rash, monitor s/p 2 units PRBC this admission, hb stable. Iron supplements, repeat studies in 3 months. Metformin, ISS. Continue Cozaar. DVTPPx with eliquis. Dispo PT rec SNF. plan for d/c to SNF pending bed availability and ID input/ PICC line placement, hopefully in 24 hours. Plan discussed with patient and all questions answered.
[2017-04-29] MEDS ORDERED: PICC LINE 8 ML FLUSH PROTOCOL IVPUSH PRN (15:01)
--- NOTE | 2017-04-29 15:01 | PN ---
Progress Note, Physician History of Present Illness: Awake, alert in bed Reports less L knee pain Rash resolved No fever/ chills - Current Medication List Current Medications: Active Medications Acetaminophen (Tylenol -) 325 mg PO Q4H PRN PRN Reason: PAIN Al Hydroxide/Mg Hydroxide (Mylanta Oral Suspension -) 30 ml PO Q4H PRN PRN Reason: DYSPEPSIA Apixaban (Eliquis -) 2.5 mg PO BID [facility] Last Admin: 04/29/17 09:35 Dose: 2.5 mg Ascorbic Acid (Vitamin C -) 500 mg PO DAILY [facility] Last Admin: 04/29/17 09:35 Dose: 500 mg Celecoxib (Celebrex -) 200 mg PO DAILY [facility] Last Admin: 04/29/17 09:35 Dose: 200 mg Diphenhydramine HCl (Benadryl -) 25 mg PO Q6H PRN PRN Reason: FOR ITCHING Last Admin: 04/29/17 06:43 Dose: 25 mg Ferrous Sulfate (Feosol -) 325 mg PO DAILY [facility] Last Admin: 04/29/17 09:35 Dose: 325 mg Daptomycin 540 mg/ Sodium (Chloride) 100 mls @ 200 mls/hr IVPB DAILY@1800 [facility] PRN Reason: Protocol Last Admin: 04/28/17 18:50 Dose: 200 mls/hr Meropenem (Merrem (Restricted To Id) -) 1 gm in 20 mls @ 240 mls/hr IVPUSH Q8H- IV JOSE LUIS PRN Reason: Protocol Last Admin: 04/29/17 09:35 Dose: 240 mls/hr Insulin Aspart (Novolog Vial Sliding Scale -) 1 vial SQ ACHS [facility] PRN Reason: Protocol Last Admin: 04/29/17 11:20 Dose: Not Given Losartan Potassium (Cozaar -) 50 mg PO DAILY [facility] Last Admin: 04/29/17 09:35 Dose: 50 mg Magnesium Hydroxide (Milk Of Magnesia -) 30 ml PO PRN PRN PRN Reason: CONSTIPATION Metformin HCl (Glucophage -) 500 mg PO DAILY@0700 [facility] Last Admin: 04/29/17 06:43 Dose: 500 mg Multivitamins/Minerals/Vitamin C (Tab-A-Vit -) 1 tab PO DAILY [facility] Last Admin: 04/29/17 09:35 Dose: 1 tab Ondansetron HCl (Zofran Injection) 4 mg IVPUSH Q4H PRN PRN Reason: NAUSEA AND/OR VOMITING Oxycodone HCl (Oxycontin -) 10 mg PO BID [facility] Last Admin: 04/29/17 09:35 Dose: 10 mg Oxycodone HCl (Roxicodone -) 5 mg PO TID PRN PRN Reason: PAIN LEVEL 7 - 10 Pantoprazole Sodium (Protonix -) 40 mg PO DAILY [facility] Last Admin: 04/29/17 09:35 Dose: 40 mg Polyethylene Glycol (Miralax (For Daily Use) -) 17 gm PO DAILY [facility] Last Admin: 04/29/17 09:36 Dose: 17 grams Senna/Docusate Sodium (Pericolace -) 1 tablet PO BID [facility] Last Admin: 04/29/17 09:35 Dose: 1 tablet - Objective Vital Signs: Vital Signs Temperature 98.6 F 04/29/17 09:34 Pulse Rate 95 H 04/29/17 09:34 Respiratory Rate 20 04/29/17 09:34 Blood Pressure 124/60 04/29/17 09:34 O2 Sat by Pulse Oximetry (%) 95 04/29/17 09:00 Constitutional: Yes: No Distress Cardiovascular: Yes: Regular Rate and Rhythm, S1, S2 Respiratory: Yes: CTA Bilaterally Gastrointestinal: Yes: Normal Bowel Sounds, Soft. No: Tenderness Extremities: Yes: Other (VAC in place L knee wound) Integumentary: Yes: Other (rash resolved) Labs: CBC, BMP 04/29/17 08:00 04/29/17 08:00 INR, PTT INR 1.24 (0.82-1.09) H 04/24/17 06:00 Assessment/Plan Hypersensitivity rxn, likely secondary to ceftriaxone S/P removal of infected L knee prosthesis, spacer placement Continue daptomycin/ meropenem Needs new PICC for outpatient antibiotic therapy
[2017-04-29] MEDS: SODIUM CHLORIDE IVPB SCH (18:34)
[2017-04-29] MEDS: DAPTOMYCIN IVPB SCH (18:34)
[2017-04-29] MEDS ORDERED: INSULIN (NOVOLOG) ASPART 100 UNITS/ML 10ML VIAL ONE (21:20)
--- NOTE | 2017-04-29 23:41 | PN ---
Progress Note (short form) - Note Progress Note: Pt seen and examined. Comfortable. AVSS Selected Entries 04/29/17 15:45 Temperature 98.2 F Pulse Rate 98 H Respiratory 22 Rate Blood Pressure 142/89 Laboratory Tests 04/29/17 04/29/17 04/29/17 06:42 08:00 08:00 WBC 7.5 Hgb 9.0 L Hct 28.2 L RDW 17.0 H Sodium 139 Potassium 4.4 Chloride 103 Carbon Dioxide 29 Anion Gap 7 L BUN 6 L Creatinine 0.5 L POC Glucometer 108 Random Glucose 97 Calcium 8.0 L Cultures reviewed - growing Pseudomonas. Previous OR cultures from February grew Enterococcus. Cultures from January from wound care center grew both Pseudomonas and Enterococcus. Pt has history of contralateral-side (RIGHT LEG) non-healing wound for which she was treated for 3+ months by [facility] wound care center. Cultures taken there in September 2015 were reviewed in the [facility] EMR and grew both Enterococcus and Pseudomonas. Gen: NAD LLE: VAC in place, functional. 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 PICC line change then discharge to SNF on terminal make up operator IV abx. She will need VAC changes M/W/F. VAC change by nursing Friday with both black and white foam. For incisional VAC, put a layer of plastic or Tegaderms down first before applying the black foam so that the surrounding skin is protected and the only area exposed and in contact with the foam is the incision line itself. Do not place black foam directly on intact skin. However , make sure entire incision (all sutures) is covered by black foam. Pt will need to f/u with me 2 weeks after discharge for suture removal. She will need to arrange ID f/u after discharge as well - she did not do this after the last surgery until I reminded her at the f/u appt. USP plan will be IV abx with monitoring of labs until infection is eradicated. Then she will f/u with Dr. Francisco Zimmerman [facility] to schedule the second stage of the surgery, which is removal of the spacer and placement of a new total knee replacement. She may also require plastic surgery to do a flap or graft to cover the area of skin necrosis. SHE SHOULD CALL SOON AFTER DISCHARGE FOR A CONSULTATION WITH DR. ZIMMERMAN -
--- NOTE | 2017-04-29 23:45 | PN ---
Progress Note (short form) - Note Progress Note: For VAC changes, make sure incisional VAC covers the entire incision line, including all sutures. She will need VAC changes M/W/. VAC change by nursing Friday with both black and white foam. For incisional VAC, put a layer of plastic or Tegaderms down first before applying the black foam so that the surrounding skin is protected and the only area exposed and in contact with the foam is the incision line itself - i.e. "picture frame" the entire suture line. Do not place black foam directly on intact skin. However, make sure entire incision is covered (all sutures) by black foam.
[2017-04-30] MEDS ORDERED: PT OWN MED DRAWER 7, Y5N ONE ×3 (01:42→17:29)
[2017-04-30] MEDS: MEROPENEM 1 GM PUSH 1 GM/20 ML DISP.SYRIN IVPUSH SCH ×3 (01:46→17:37)
[2017-04-30] MEDS: diphenhydrAMINE HCL 25 MG CAPSULE (FP) PO PRN ×2 (02:20→17:45)
[2017-04-30] MEDS: metFORMIN HCL 500 MG TABLET (FP) PO SCH (06:03)
[2017-04-30] MEDS: INSULIN SLIDING SCALE (NOVOLOG) 1 VIAL SQ SCH ×3 (06:04→17:26)
[2017-04-30 08:04] LABS: HEMATOCRIT 31.2 % (32.4-45.2); HEMOGLOBIN 9.8 GM/dL (10.7-15.3); MCHC 31.5 g/dl (32.0-36.0); MEAN CELL VOLUME 79.3 fl (80-96); MEAN PLT VOLUME 7.5 fl (7.5-11.1); PLATELET COUNT 493 K/MM3 (134-434); RBC 3.93 M/mm3 (3.60-5.2); RDW 17.3 % (11.6-15.6); WHITE BLOOD COUNT 7.6 K/mm3 (4.0-10.0)
[2017-04-30 08:38] LABS: ANION GAP 8 (8-16); BLOOD UREA NITROGEN 8 mg/dL (7-18); CALCIUM 8.7 mg/dL (8.5-10.1); CHLORIDE 100 mmol/L (98-107); CO2 29 mmol/L (21-32); CREATININE 0.6 mg/dL (0.55-1.02); GLUCOSE,RANDOM 98 mg/dL (74-106); POTASSIUM 4.6 mmol/L (3.5-5.1); SODIUM 137 mmol/L (136-145)
--- NOTE | 2017-04-30 09:26 | PN ---
Progress Note, Physician History of Present Illness: Awake, alert in bed No c/o L knee pain Rash resolved No fever/ chills - Current Medication List Current Medications: Active Medications Acetaminophen (Tylenol -) 325 mg PO Q4H PRN PRN Reason: PAIN Al Hydroxide/Mg Hydroxide (Mylanta Oral Suspension -) 30 ml PO Q4H PRN PRN Reason: DYSPEPSIA Apixaban (Eliquis -) 2.5 mg PO BID [facility] Last Admin: 04/29/17 21:27 Dose: 2.5 mg Ascorbic Acid (Vitamin C -) 500 mg PO DAILY [facility] Last Admin: 04/29/17 09:35 Dose: 500 mg Celecoxib (Celebrex -) 200 mg PO DAILY [facility] Last Admin: 04/29/17 09:35 Dose: 200 mg Diphenhydramine HCl (Benadryl -) 25 mg PO Q6H PRN PRN Reason: FOR ITCHING Last Admin: 04/30/17 02:20 Dose: 25 mg Ferrous Sulfate (Feosol -) 325 mg PO DAILY [facility] Last Admin: 04/29/17 09:35 Dose: 325 mg IV Flush (Picc Line Flush) 8 ml IVPUSH PRN PRN PRN Reason: Protocol Daptomycin 540 mg/ Sodium (Chloride) 100 mls @ 200 mls/hr IVPB DAILY@1800 JOSE LUIS PRN Reason: Protocol Last Admin: 04/29/17 18:34 Dose: 200 mls/hr Meropenem (Merrem (Restricted To Id) -) 1 gm in 20 mls @ 240 mls/hr IVPUSH Q8H- IV JOSE LUIS PRN Reason: Protocol Last Admin: 04/30/17 01:46 Dose: 240 mls/hr Insulin Aspart (Novolog Vial Sliding Scale -) 1 vial SQ ACHS JOSE LUIS PRN Reason: Protocol Last Admin: 04/30/17 06:04 Dose: Not Given Losartan Potassium (Cozaar -) 50 mg PO DAILY [facility] Last Admin: 04/29/17 09:35 Dose: 50 mg Magnesium Hydroxide (Milk Of Magnesia -) 30 ml PO PRN PRN PRN Reason: CONSTIPATION Metformin HCl (Glucophage -) 500 mg PO DAILY@0700 [facility] Last Admin: 04/30/17 06:03 Dose: 500 mg Multivitamins/Minerals/Vitamin C (Tab-A-Vit -) 1 tab PO DAILY [facility] Last Admin: 04/29/17 09:35 Dose: 1 tab Ondansetron HCl (Zofran Injection) 4 mg IVPUSH Q4H PRN PRN Reason: NAUSEA AND/OR VOMITING Oxycodone HCl (Oxycontin -) 10 mg PO BID [facility] Last Admin: 04/29/17 21:26 Dose: 10 mg Oxycodone HCl (Roxicodone -) 5 mg PO Q8H PRN PRN Reason: PAIN LEVEL 7 - 10 Pantoprazole Sodium (Protonix -) 40 mg PO DAILY [facility] Last Admin: 04/29/17 09:35 Dose: 40 mg Polyethylene Glycol (Miralax (For Daily Use) -) 17 gm PO DAILY [facility] Last Admin: 04/29/17 09:36 Dose: 17 grams Senna/Docusate Sodium (Pericolace -) 1 tablet PO BID [facility] Last Admin: 04/29/17 21:27 Dose: 1 tablet - Objective Vital Signs: Vital Signs Temperature 99.2 F 04/30/17 06:00 Pulse Rate 94 H 04/30/17 06:00 Respiratory Rate 20 04/30/17 06:00 Blood Pressure 156/72 04/30/17 06:00 O2 Sat by Pulse Oximetry (%) 95 04/29/17 22:00 Constitutional: Yes: No Distress Eyes: Yes: Conjunctiva Clear Cardiovascular: Yes: Regular Rate and Rhythm, S1, S2 Respiratory: Yes: CTA Bilaterally Gastrointestinal: Yes: Normal Bowel Sounds, Soft. No: Tenderness Extremities: Yes: Other (VAC in place L Knee) Labs: CBC, BMP 04/30/17 07:43 04/30/17 07:43 INR, PTT INR 1.24 (0.82-1.09) H 04/24/17 06:00 Assessment/Plan Hypersensitivity rxn, likely secondary to ceftriaxone S/P removal of infected L knee prosthesis, spacer placement Needs new PICC for outpatient antibiotic therapy Meropenem 1gm IVPB q8h x 6w
[2017-04-30] MEDS: SENNOSIDES/DOCUSATE COMBO (SENNA PLUS) TABLET (UD) PO SCH (10:11)
[2017-04-30] MEDS: ASCORBIC ACID 500 MG TABLET (FP) PO SCH (10:11)
[2017-04-30] MEDS: MULTIVITAMINS (DAILY MVI) TABLET (FP) PO SCH (10:11)
[2017-04-30] MEDS: oxyCODONE HCL 10 MG SUSTAINED ACTING TABLET PO SCH (10:11)
[2017-04-30] MEDS: PANTOPRAZOLE 40 MG TABLET (FP) PO SCH (10:11)
[2017-04-30] MEDS: FERROUS SO4 325 MG TABLET (FP) PO SCH (10:11)
[2017-04-30] MEDS: LOSARTAN POTASSIUM 50 MG TABLET (FP) PO SCH (10:11)
[2017-04-30] MEDS: CELECOXIB 200 MG CAPSULE PO SCH (10:12)
[2017-04-30] MEDS: POLYETHYLENE GLYCOL 3350 119 GM BTL PO SCH (10:12)
[2017-04-30] MEDS: APIXABAN 2.5 MG TABLET PO SCH (10:12)
--- NOTE | 2017-04-30 15:02 | PN ---
Physical Exam: SUBJECTIVE: Patient seen and examined. No acute events over night. She is still itching around her right flank but says its better today. Denies chest pain, sob, dizziness, nausea, vomiting, fevers. OBJECTIVE: Vital Signs Period Temp Pulse Resp BP Sys/Parnell Pulse Ox Last 24 Hr 98.1 F-99.2 F 80-98 20-22 123-156/52-89 95-95 GENERAL: Awake, alert, and fully oriented, in no acute distress. HEAD: Normal with no signs of trauma. EYES: Pupils equal, round and reactive to light EARS, NOSE, THROAT: oropharynx clear without exudates. Moist mucous membranes. NECK: supple without lymphadenopathy LUNGS: Breath sounds equal, clear to auscultation bilaterally. No wheezes, and no crackles. HEART: Regular rate and rhythm, normal S1 and S2 without murmur, rub or gallop. ABDOMEN: Soft, nontender, not distended, normoactive bowel sounds. MUSCULOSKELETAL: s/p surgery w/ LLE immobilizer, left knee vertical incision, clean with minimal surrounding tenderness, no erythema or discharge, VAC still draining blood (Less than yesterday) Back: Macular rash in right flank area extending to the thigh. UPPER EXTREMITIES: 2+ pulses, No peripheral edema. LOWER EXTREMITIES: 2+ pulses, warm, well-perfused. 2+ Edema LLE PSYCHIATRIC: Cooperative. Good eye contact. Appropriate mood and affect. Laboratory Results - last 24 hr 04/25/17 04/29/17 04/29/17 12:45 17:00 21:24 WBC RBC Hgb Hct MCV MCH MCHC RDW Plt Count MPV Sodium Potassium Chloride Carbon Dioxide Anion Gap BUN Creatinine POC Glucometer 144 115 Random Glucose Calcium Blood Type A POSITIVE Crossmatch See Detail 04/30/17 04/30/17 04/30/17 05:57 07:43 07:43 WBC 7.6 RBC 3.93 Hgb 9.8 L Hct 31.2 L MCV 79.3 L MCH 25.0 L MCHC 31.5 L RDW 17.3 H Plt Count 493 H MPV 7.5 Sodium 137 Potassium 4.6 Chloride 100 Carbon Dioxide 29 Anion Gap 8 BUN 8 Creatinine 0.6 POC Glucometer 106 Random Glucose 98 Calcium 8.7 Blood Type Crossmatch 04/30/17 11:50 WBC RBC Hgb Hct MCV MCH MCHC RDW Plt Count MPV Sodium Potassium Chloride Carbon Dioxide Anion Gap BUN Creatinine POC Glucometer 140 Random Glucose Calcium Blood Type Crossmatch Active Medications Generic Name Dose Route Start Last Admin Trade Name Cinthya PRN Reason Stop Dose Admin Acetaminophen 325 mg 04/29/17 14:54 Tylenol - PO Q4H PRN PAIN Al Hydroxide/Mg Hydroxide 30 ml 04/25/17 01:46 Mylanta Oral Suspension - PO Q4H PRN DYSPEPSIA Apixaban 2.5 mg 04/25/17 10:00 04/30/17 10:12 Eliquis - PO 2.5 mg BID JOSE LUIS Administration Ascorbic Acid 500 mg 04/24/17 10:00 04/30/17 10:11 Vitamin C - PO 500 mg DAILY JOSE LUIS Administration Celecoxib 200 mg 04/25/17 10:00 04/30/17 10:12 Celebrex - PO 200 mg DAILY JOSE LUIS Administration Diphenhydramine HCl 25 mg 04/26/17 14:53 04/30/17 02:20 Benadryl - PO 25 mg Q6H PRN Administration FOR ITCHING Ferrous Sulfate 325 mg 04/26/17 10:30 04/30/17 10:11 Feosol - PO 325 mg DAILY JOSE LUIS Administration IV Flush 8 ml 04/29/17 15:01 Picc Line Flush IVPUSH PRN PRN Protocol Daptomycin 540 mg/ Sodium 100 mls @ 200 mls/hr 04/28/17 18:00 04/29/17 18:34 Chloride IVPB 200 mls/hr DAILY@1800 JOSE LUIS Administration Protocol Meropenem 1 gm in 20 mls @ 240 mls/hr 04/28/17 16:00 04/30/17 10:12 Merrem (Restricted To Id) - IVPUSH 240 mls/hr Q8H-IV JOSE LUIS Administration Protocol Insulin Aspart 1 vial 04/23/17 22:00 04/30/17 11:53 Novolog Vial Sliding Scale - SQ Not Given ACHS [facility] Protocol Losartan Potassium 50 mg 04/24/17 10:00 04/30/17 10:11 Cozaar - PO 50 mg DAILY JOSE LUIS Administration Magnesium Hydroxide 30 ml 04/25/17 01:46 Milk Of Magnesia - PO PRN PRN CONSTIPATION Metformin HCl 500 mg 04/25/17 07:00 04/30/17 06:03 Glucophage - PO 500 mg DAILY@0700 JOSE LUIS Administration Multivitamins/Minerals/Vitamin C 1 tab 04/24/17 10:00 04/30/17 10:11 Tab-A-Vit - PO 1 tab DAILY JOSE LUIS Administration Ondansetron HCl 4 mg 04/24/17 23:39 Zofran Injection IVPUSH Q4H PRN NAUSEA AND/OR VOMITING Oxycodone HCl 10 mg 04/23/17 23:00 04/30/17 10:11 Oxycontin - PO 10 mg BID JOSE LUIS Administration Oxycodone HCl 5 mg 04/29/17 14:53 Roxicodone - PO Q8H PRN PAIN LEVEL 7 - 10 Pantoprazole Sodium 40 mg 04/24/17 10:00 04/30/17 10:11 Protonix - PO 40 mg DAILY JOSE LUIS Administration Polyethylene Glycol 17 gm 04/24/17 10:00 04/30/17 10:12 Miralax (For Daily Use) - PO 17 grams DAILY JOSE LUIS Administration Senna/Docusate Sodium 1 tablet 04/23/17 22:00 04/30/17 10:11 Pericolace - PO 1 tablet BID JOSE LUIS Administration ASSESSMENT/PLAN: Patient is a 72 yo F with a PMHx of HTN, pre-diabetes, s/p R TKR (05/17), s/p L TKR (01/16/17), presents after L TKR on 01/16 complicated by wound dehiscence s/ p mechanical fall to knee. #Left Septic Knee Joint secondary to wound Dehiscence -S/P left TKA removal 04/25 of hardware, I&D, placement of antibiotic spacer and VAC machine -Wound Vac with minimal Sanguinous drainage (less sanguinous today) -HELD IV Abx: Ampicillin (completed 4 days) due to Hypersensitivity rxn, likely secondary to ceftriaxone -Cont. Meropenem (day 2) -Needs new PICC for outpatient antibiotic therapy. Meropenem 1gm IVPB q8h x 6w -D/c Daptomycin -Patient will need PICC line prior to discharge -Left knee cultures +Psuedomonas -Physical Therapy for deconditioning -ID Consulted: Dr. Wild -Held ASA 325mg -Oxycodone 10mg BID -2 mg IV morphine q4h PRN -Cont. Regular Diet #Rash -improved -Benadryl PRN #Anemia -s/p surgery -serosanguinous fluid in wound vac -s/p 2 units of PRBC last 04/26 -Follow H&H #Opiate Induced Constipation -likely secondary to opiate use -Miralax #HTN/CAD -cont. Losartan 50mg #Pre-Diabetes -Last A1c 6.1 -Held Metformin -ISS -BGM #FEN -No fluids -WNL -Regular diet #PPx -Cont. Eliquis 2.5mg BID -Once Abx decision decided, will likely discharge to subacute rehab with PICC line.
--- NOTE | 2017-04-30 16:07 | PN ---
Teaching Attending Note Name of Resident: Ofe Landeros ATTENDING PHYSICIAN STATEMENT Time of evaluation: 10:15 AM I saw and evaluated the patient. I reviewed the resident's note and discussed the case with the resident. I agree with the resident's findings and plan as documented. SUBJECTIVE: Patient seen and examined. working with PT, no complaints. OBJECTIVE: Vital Signs Period Temp Pulse Resp BP Sys/Parnell Pulse Ox Last 24 Hr 98.1 F-99.2 F 80-94 20-20 123-156/52-72 95-95 Intake & Output 04/27/17 04/28/17 04/29/17 04/30/17 23:59 23:59 23:59 23:59 Intake Total 1000 200 200 575 Output Total 400 Balance 600 200 200 575 general: no acute distress, attempting to ambulate with PT Left leg immobilizer, wound dressing in place Home Medication List Medication Instructions Recorded Confirmed Type Losartan Potassium 50 mg PO DAILY 01/14/17 04/23/17 History Metformin HCl 500 mg PO DAILY 01/14/17 04/23/17 History Ascorbic Acid [Vitamin C -] 500 mg PO DAILY 03/14/17 04/23/17 History Active Medications Generic Name Dose Route Start Last Admin Trade Name Freq PRN Reason Stop Dose Admin Acetaminophen 325 mg 04/29/17 14:54 Tylenol - PO Q4H PRN PAIN Al Hydroxide/Mg Hydroxide 30 ml 04/25/17 01:46 Mylanta Oral Suspension - PO Q4H PRN DYSPEPSIA Apixaban 2.5 mg 04/25/17 10:00 04/30/17 10:12 Eliquis - PO 2.5 mg BID JOSE LUIS Administration Ascorbic Acid 500 mg 04/24/17 10:04/30/17 10:11 Vitamin C - PO 500 mg DAILY JOSE LUIS Administration Celecoxib 200 mg 04/25/17 10:00 04/30/17 10:12 Celebrex - PO 200 mg DAILY JOSE LUIS Administration Diphenhydramine HCl 25 mg 04/26/17 14:53 04/30/17 02:20 Benadryl - PO 25 mg Q6H PRN Administration FOR ITCHING Ferrous Sulfate 325 mg 04/26/17 10:30 04/30/17 10:11 Feosol - PO 325 mg DAILY JOSE LUIS Administration IV Flush 8 ml 04/29/17 15:01 Picc Line Flush IVPUSH PRN PRN Protocol Daptomycin 540 mg/ Sodium 100 mls @ 200 mls/hr 04/28/17 18:00 04/29/17 18:34 Chloride IVPB 200 mls/hr DAILY@1800 JOSE LUIS Administration Protocol Meropenem 1 gm in 20 mls @ 240 mls/hr 04/28/17 16:00 04/30/17 10:12 Merrem (Restricted To Id) - IVPUSH 240 mls/hr Q8H-IV JOSE LUIS Administration Protocol Insulin Aspart 1 vial 04/23/17 22:00 04/30/17 11:53 Novolog Vial Sliding Scale - SQ Not Given ACHS [facility] Protocol Losartan Potassium 50 mg 04/24/17 10:00 04/30/17 10:11 Cozaar - PO 50 mg DAILY JOSE LUIS Administration Magnesium Hydroxide 30 ml 04/25/17 01:46 Milk Of Magnesia - PO PRN PRN CONSTIPATION Metformin HCl 500 mg 04/25/17 07:00 04/30/17 06:03 Glucophage - PO 500 mg DAILY@0700 JOSE LUIS Administration Multivitamins/Minerals/Vitamin C 1 tab 04/24/17 10:00 04/30/17 10:11 Tab-A-Vit - PO 1 tab DAILY JOSEL UIS Administration Ondansetron HCl 4 mg 04/24/17 23:39 Zofran Injection IVPUSH Q4H PRN NAUSEA AND/OR VOMITING Oxycodone HCl 10 mg 04/23/17 23:00 04/30/17 10:11 Oxycontin - PO 10 mg BID JOSE LUIS Administration Oxycodone HCl 5 mg 04/29/17 14:53 Roxicodone - PO Q8H PRN PAIN LEVEL 7 - 10 Pantoprazole Sodium 40 mg 04/24/17 10:00 04/30/17 10:11 Protonix - PO 40 mg DAILY JOSE LUIS Administration Polyethylene Glycol 17 gm 04/24/17 10:00 04/30/17 10:12 Miralax (For Daily Use) - PO 17 grams DAILY JOSE LUIS Administration Senna/Docusate Sodium 1 tablet 04/23/17 22:00 04/30/17 10:11 Pericolace - PO 1 tablet BID JOSE LUIS Administration Laboratory Results - last 24 hr 04/25/17 04/29/17 04/29/17 12:45 17:00 21:24 WBC RBC Hgb Hct MCV MCH MCHC RDW Plt Count MPV Sodium Potassium Chloride Carbon Dioxide Anion Gap BUN Creatinine POC Glucometer 144 115 Random Glucose Calcium Blood Type A POSITIVE Crossmatch See Detail 04/30/17 04/30/17 04/30/17 05:57 07:43 07:43 WBC 7.6 RBC 3.93 Hgb 9.8 L Hct 31.2 L MCV 79.3 L MCH 25.0 L MCHC 31.5 L RDW 17.3 H Plt Count 493 H MPV 7.5 Sodium 137 Potassium 4.6 Chloride 100 Carbon Dioxide 29 Anion Gap 8 BUN 8 Creatinine 0.6 POC Glucometer 106 Random Glucose 98 Calcium 8.7 Blood Type Crossmatch 04/30/17 11:50 WBC RBC Hgb Hct MCV MCH MCHC RDW Plt Count MPV Sodium Potassium Chloride Carbon Dioxide Anion Gap BUN Creatinine POC Glucometer 140 Random Glucose Calcium Blood Type Crossmatch Microbiology 04/23/17 14:28 Blood - Peripheral Venous Blood Culture - Final NO GROWTH AFTER 5 DAYS INCUBATION 04/23/17 14:28 Blood - Peripheral Venous Blood Culture - Final NO GROWTH AFTER 5 DAYS INCUBATION 04/24/17 07:45 Knee - Left Gram Stain - Final 04/24/17 07:45 Knee - Left Wound Culture - Final Pseudomonas Aeruginosa 04/24/17 07:45 Knee - Left Gram Stain - Final 04/24/17 07:45 Knee - Left Wound Culture - Final Pseudomonas Aeruginosa 04/24/17 07:45 Tissue-Other Gram Stain - Final 04/24/17 07:45 Tissue-Other Tissue Culture - Final Pseudomonas Aeruginosa 04/24/17 07:45 Tissue-Other Anaerobic Culture - Final NO ANAEROBES WERE ISOLATED 04/23/17 16:00 Urine - Urine Clean Catch Urine Culture - Final Contaminated: Please Repeat ASSESSMENT AND PLAN: 72yo F wtih PMH DM and HTN 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/I&D/placement of antibiotic spacer and VAC machine 04/25/2017 -Rash bilateral hands, ?Ceftriaxone allergy,resolved now with scant left lower back maculopapular rash -Left total knee arthroplasty 01/16/2017, complicated by mechanical fall/wound dehiscence, treated with PO abx and wound care with progressive necrosis and drainage s/p irrigation and debridement/Poly exchange/Antibiotic spacer, cultures with E faecalis, d/wallace on ampicillin then with no ID follow up since till day prior to admission -Constipation -Microcytic iron deficiency anemia/anemia of chronic disease -DM A1c 6.1 -HTN Plan: Possible concern for ceftriaxone allergy this admission. ID input noted, meropenem/daptomycin day 3, ID input appreciated. Meropenem for 6 weeks. Wound cultures with pseudomonas this time (prior in 02/2017 with Enterococcas faecalis) Orthopedic input noted. PLan for outpatient follow up with Dr. Zimmerman at [facility] for second phase of surgery that would include removal of spacer and new total Knee replacement +/- plastic surgery with flap. taper oxycodone. Bowel regimen. Benadyl prn for rash, monitor s/p 2 units PRBC this admission, hb stable. Iron supplements, repeat studies in 3 months. Metformin, ISS. Continue Cozaar. DVTPPx with eliquis. Dispo SNF bed available, PICC line placed. D/c to SNF with outpatient follow up as above.
[2017-04-30] MEDS: DAPTOMYCIN IVPB SCH (17:45)
[2017-04-30] MEDS: SODIUM CHLORIDE IVPB SCH (17:45)
[2017-04-30 17:56] VITALS: BP 145/70; PULSE 80; TEMP 98.2
--- NOTE | 2017-04-30 18:04 | DS ---
Physical Exam: SUBJECTIVE: Patient seen and examined. No acute events over night. She is still itching around her right flank but says its better today. Denies chest pain, sob, dizziness, nausea, vomiting, fevers. OBJECTIVE: Vital Signs Period Temp Pulse Resp BP Sys/Parnell Pulse Ox Last 24 Hr 98.1 F-99.2 F 80-94 20-20 123-156/52-72 95-95 PHYSICAL EXAM GENERAL: Awake, alert, and fully oriented, in no acute distress. HEAD: Normal with no signs of trauma. EYES: Pupils equal, round and reactive to light EARS, NOSE, THROAT: oropharynx clear without exudates. Moist mucous membranes. NECK: supple without lymphadenopathy LUNGS: Breath sounds equal, clear to auscultation bilaterally. No wheezes, and no crackles. HEART: Regular rate and rhythm, normal S1 and S2 without murmur, rub or gallop. ABDOMEN: Soft, nontender, not distended, normoactive bowel sounds. MUSCULOSKELETAL: s/p surgery w/ LLE immobilizer, left knee vertical incision, clean with minimal surrounding tenderness, no erythema or discharge, VAC still draining blood (Less than yesterday) Back: Macular rash in left flank area extending to the thigh. UPPER EXTREMITIES: 2+ pulses, No peripheral edema. LOWER EXTREMITIES: 2+ pulses, warm, well-perfused. 2+ Edema LLE PSYCHIATRIC: Cooperative. Good eye contact. Appropriate mood and affect. LABS Laboratory Results - last 24 hr 04/25/17 04/29/17 04/30/17 12:45 21:24 05:57 WBC RBC Hgb Hct MCV MCH MCHC RDW Plt Count MPV Sodium Potassium Chloride Carbon Dioxide Anion Gap BUN Creatinine POC Glucometer 115 106 Random Glucose Calcium Blood Type A POSITIVE Crossmatch See Detail 04/30/17 04/30/17 04/30/17 07:43 07:43 11:50 WBC 7.6 RBC 3.93 Hgb 9.8 L Hct 31.2 L MCV 79.3 L MCH 25.0 L MCHC 31.5 L RDW 17.3 H Plt Count 493 H MPV 7.5 Sodium 137 Potassium 4.6 Chloride 100 Carbon Dioxide 29 Anion Gap 8 BUN 8 Creatinine 0.6 POC Glucometer 140 Random Glucose 98 Calcium 8.7 Blood Type Crossmatch 04/30/17 17:18 WBC RBC Hgb Hct MCV MCH MCHC RDW Plt Count MPV Sodium Potassium Chloride Carbon Dioxide Anion Gap BUN Creatinine POC Glucometer 169 Random Glucose Calcium Blood Type Crossmatch HOSPITAL COURSE: Date of Admission:04/23/17 Patient is a 72 yo F with a PMHx of HTN, pre-diabetes, s/p R TKR (05/17), s/p L TKR (01/16/17), presents after L TKR on 01/16 complicated by wound dehiscence s/ p mechanical fall to knee. S/P left TKA removal 04/25 of hardware, I&D, placement of antibiotic spacer and VAC machine. Pain control with oxycodone and oxyconton. Patient developed anemia s/p surgery with continuous blood being drained in VAC. H&H was closely monitored. s/p 2 units of PRBC last 04/26. Patient's anemia resolved. Patient's knee cultures grew Psuedomonas which was treated with antibiotics. Patient also developed a hypersensitivity reaction likely from Ceftriaxone which resolved with d/c of ceftriaxone. She was also treated with Benadryl PRN. Daptomycin was started with Meropenem. Patient was discharged with IV abx via picc line with Meropenem 1gm Q8H x 6 weeks. Patient was sent to SNF and is instructed to follow up with ID and Ortho. [facility] plan will be IV abx with monitoring of labs until infection is eradicated. Then she will f/u with Dr. Francisco Zimmerman at [facility] to schedule the second stage of the surgery, which is removal of the spacer and placement of a new total knee replacement. She may also require plastic surgery to do a flap or graft to cover the area of skin necrosis. DR. ZIMMERMAN - Discussed plan with family and everyone in agreement. 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 You will need VAC changes M/W/F. VAC change by nursing Friday with both black and white foam. For incisional VAC, put a layer of plastic or Tegaderms down first before applying the black foam so that the surrounding skin is protected and the only area exposed and in contact with the foam is the incision line itself. Do not place black foam directly on intact skin. However , make sure entire incision (all sutures) is covered by black foam. Pt will need to follow up with Dr. Calvin Jara (ortho) 2 weeks after discharge for suture removal. You will need to arrange Infectious disease follow up appointment after discharge, please ensure you follow with them in 2 weeks of discharge. You will be on IV antibiotics with monitoring of labs until infection is eradicated. Then follow up with Dr. Francisco Zimmerman at [facility] in [facility] to schedule the second stage of the surgery, which is removal of the spacer and placement of a new total knee replacement. You may also require plastic surgery to do a flap or graft to cover the area of skin necrosis. YOU SHOULD CALL SOON AFTER DISCHARGE FOR A CONSULTATION WITH DR. ZIMMERMAN - Immobilizer for left leg and ambulation with assist Weekly CBC, BMP, LFTs, CRP while on antibiotics with results to your doctor and infectious disease doctor Dr. Gilliland and follow up with him for continued antibiotic management. Make sure to have your iron studies done in 3 months. Routine PICC line care and removal after done with antibiotics per infectious disease Don't drive, operate heavy machinery or take important decisions alone while on narcotics, do not take if dizzy or drowsy. Taper as symptoms improve and maintain a bowel regimen while in it. If you have a new onset of shortness of breath, fevers, chest pain, or dizziness , any increasing leg pain, discharge, redness around the incision site, fevers chills, please call your doctor. If it is an emergency please go to your nearest emergency room. Referrals: Mike Gilliland MD [Staff Physician] - 1 Week Calvin Jara MD [Staff Physician] - 2 Weeks Disposition: TRANSFER ACUTE CARE/OTHER HOSP - Home Medications Comprehensive Discharge Medication List: Ambulatory Orders Losartan Potassium 50 mg PO DAILY 01/14/17 Metformin HCl 500 mg PO DAILY 01/14/17 Multivitamins [Multivit ([facility] Formulary)] 1 tab PO DAILY tab 01/17/17 Ascorbic Acid [Vitamin C -] 500 mg PO DAILY 03/14/17 Pantoprazole Sodium [Protonix -] 40 mg PO DAILY #40 tab 03/21/17 Sennosides/Docusate Sodium [Pericolace -] 1 tablet PO BID tablet 03/21/17 Acetaminophen [Pain Relief] 650 mg PO Q6H PRN #30 tablet.er 04/30/17 Apixaban [Eliquis -] 2.5 mg PO BID tablet 04/30/17 Celecoxib 100 mg PO DAILY #30 capsule 04/30/17 Diphenhydramine HCl [Benadryl Capsule -] 25 mg PO Q6H PRN #30 capsule 04/30/17 Ferrous Sulfate [Feosol] 325 mg PO DAILY ud 04/30/17 Insulin Sliding Scale [Novolog Vial Sliding Scale -] 1 vial SQ ACHS units 04/30 Magnesium Hydrox 2400MG/30Ml [Milk of Magnesia -] 30 ml PO PRN PRN cup Meropenem 1 gm IV Q8H #126 vial 04/30/17 Oxycodone HCl [Roxicodone -] 5 mg PO Q8H PRN tablet MDD 5 04/30/17 Oxycodone Sr [Oxycontin] 10 mg PO BID tab.er.12h MDD 20 04/30/17 Picc Line Flush [Picc Line Flush -] 8 ml IVPUSH PRN PRN ml 04/30/17 Polyethylene Glycol 3350 [Miralax 119 gm Btl -] 17 gm PO DAILY bottle 04/30/17 This patient is new to me today: No Emergency Visit: Yes ED Registration Date: 04/23/17 Care time: The patient presented to the Emergency Department on the above date and was hospitalized for further evaluation of their emergent condition. Critical Care patient: No - Discharge Referral Referred to [facility] No
== END 2017-04-30 18:45 | DRG 320 ==
LOC: JER 11:43 → JERBED 16:59 → J7W 21:20 → J6S 04-25 03:13
PROVIDERS: ADMIT Internal Medicine; ATTEND Hospitalist
PROC: 0SPD0JZ Removal of Synthetic Substitute from Left Knee Joint, Open Approach (ICD-10-PCS; principal; 2017-04-25)
PROC: 0SHD08Z Insertion of Spacer into Left Knee Joint, Open Approach (ICD-10-PCS; 2017-04-25)
PROC: 2W1MX6Z Compression of Left Lower Extremity using Pressure Dressing (ICD-10-PCS; 2017-04-25)
PROC: 0S9D0ZX Drainage of Left Knee Joint, Open Approach, Diagnostic (ICD-10-PCS; 2017-04-25)
PROC: 30233H1 Transfusion of Nonautologous Whole Blood into Peripheral Vein, Percutaneous Approach (ICD-10-PCS; 2017-04-27)
PROC: 05HM33Z Insertion of Infusion Device into Right Internal Jugular Vein, Percutaneous Approach (ICD-10-PCS; 2017-04-30)
DX: T84.54XA Infection and inflammatory reaction due to internal left knee prosthesis, initial encounter (principal); T81.32XA Disruption of internal operation (surgical) wound, not elsewhere classified, initial encounter; B96.5 Pseudomonas (aeruginosa) (mallei) (pseudomallei) as the cause of diseases classified elsewhere; Y83.8 Other surgical procedures as the cause of abnormal reaction of the patient, or of later complication, without mention of misadventure at the time of the procedure; I44.7 Left bundle-branch block, unspecified; E11.9 Type 2 diabetes mellitus without complications; I10 Essential (primary) hypertension; Z79.84 Long term (current) use of oral hypoglycemic drugs; Z91.81 History of falling; I25.10 Atherosclerotic heart disease of native coronary artery without angina pectoris; E66.9 Obesity, unspecified; Z68.39 Body mass index [BMI] 39.0-39.9, adult; K59.03 Drug induced constipation; T40.2X5A Adverse effect of other opioids, initial encounter; D50.9 Iron deficiency anemia, unspecified; L50.0 Allergic urticaria; T36.1X5A Adverse effect of cephalosporins and other beta-lactam antibiotics, initial encounter; D63.8 Anemia in other chronic diseases classified elsewhere
CPT/HCPCS: 36415; 36430; 36569; 73560-TC-LT; 77001-TC-FY; 80048; 80053; 81003; 82728; 82962; 83540; 83550; 83735; 84100; 85025; 85027; 85610; 85651; 85730; 86140; 86850; 86900; 86901; 86922; 87040; 87070; 87075; 87086; 87186; 87205; 93005; 93010; 94010; 94760; 97116-GP; 97161-GP; 99285-25; C1751; J0878; P9038; P9058

== ENCOUNTER → 2017-05-21 | Day surgery (SDC) | payer OTHER | END | disposition home or self-care (01) | LOC: JRADIR 13:45 | PROVIDERS: ATTEND Nurse Practitioner Adult Health | PROC: 02HV33Z Insertion of Infusion Device into Superior Vena Cava, Percutaneous Approach (ICD-10-PCS; principal; 2017-05-21) | PROC: B518ZZA Fluoroscopy of Superior Vena Cava, Guidance (ICD-10-PCS; 2017-05-21) | DX: Z79.2 Long term (current) use of antibiotics (principal); B99.9 Unspecified infectious disease | CPT/HCPCS: 36569; 77001-TC-FY; C1751 ==

== ENCOUNTER 2017-06-06 16:45 | Emergency (ER) | payer OTHER ==
[2017-06-06 18:20] VITALS: BP 130/63; PULSE 107; TEMP 99.8; BMI 39.0
--- NOTE | 2017-06-06 18:25 | PDOC ---
History of Present Illness <Avel Bobo - Last Filed: 06/06/17 19:15> - General History Source: Patient Exam Limitations: No Limitations - History of Present Illness Initial Comments: 06/06/17 19:53 The patient is a 72 year old female, with a significant past medical history of Left total knee replacement (01/16/17, complicated by multiple infections), who presents to the emergency department from [facility] with left leg pain and swelling since approximately 04:00. Patient reports woke up in the middle of the night due to her leg pain. Patient reports her pain is worse when bearing weight or when walking. Patient reports informing one of the nurses, who then took her temperature and found a TMax of 102 F. Patient reports she is currently on Ampicillin, with a PICC line in place. Patient reports bilateral leg swelling at baseline, left worse than right. She denies any other recent fever, chills, cough, headache, dizziness, or lightheadedness. She denies any chest pain, shortness of breath, diaphoresis, or palpitations. She denies any abdominal pain, nausea, vomiting, or changes in bladder/bowel habits. She denies any recent travel or sick contacts. Allergies: NKDA Past Surgical History: Left total knee replacement Social History: Non smoker. No ETOH or recreational drug use, PCP: Dr Sabino Trivedi ([facility]) Orthopedist: Dr. Calvin Jara ([facility]) <Cailin Carrera - Last Filed: 06/06/17 19:53> - General Chief Complaint: Wound Infection Stated Complaint: FEVER, WOUND INFECTION Time Seen by Provider: 06/06/17 17:31 Past History - Past Medical History Anemia: No Asthma: No Cancer: No Cardiac Disorders: Yes (heart arrythmias) CVA: No COPD: No CHF: No Dementia: No Diabetes: Yes GI Disorders: No Disorders: No HTN: Yes Hypercholesterolemia: No Liver Disease: No Seizures: No Thyroid Disease: No - Surgical History Abdominal Surgery: No Appendectomy: No Cardiac Surgery: No Cholecystectomy: No Lung Surgery: No Neurologic Surgery: No Orthopedic Surgery: Yes (RTKR , left knee replacement 01/14) - Suicide/Smoking/Psychosocial Hx Smoking History: Never smoked Have you smoked in the past 12 months: No Number of Cigarettes Smoked Daily: 0 Hx Alcohol Use: No Drug/Substance Use Hx: No Substance Use Type: None Hx Substance Use Treatment: No <JihanAvel - Last Filed: 06/06/17 19:15> <Cailin Carrera - Last Filed: 06/06/17 19:53> - Past Medical History Allergies/Adverse Reactions: Allergies Allergy/AdvReac Type Severity Reaction Status Date / Time No Known Allergies Allergy Verified 06/06/17 17:59 Home Medications: Ambulatory Orders Losartan Potassium 50 mg PO DAILY 01/14/17 Metformin HCl 500 mg PO DAILY 01/14/17 Multivitamins [Multivit ([facility] Formulary)] 1 tab PO DAILY tab 01/17/17 Ascorbic Acid [Vitamin C -] 500 mg PO DAILY 03/14/17 Pantoprazole Sodium [Protonix -] 40 mg PO DAILY #40 tab 03/21/17 Sennosides/Docusate Sodium [Pericolace -] 1 tablet PO BID tablet 03/21/17 Acetaminophen [Pain Relief] 650 mg PO Q6H PRN #30 tablet.er 04/30/17 Apixaban [Eliquis -] 2.5 mg PO BID tablet 04/30/17 Celecoxib 100 mg PO DAILY #30 capsule 04/30/17 Diphenhydramine HCl [Benadryl Capsule -] 25 mg PO Q6H PRN #30 capsule 04/30/17 Ferrous Sulfate [Feosol] 325 mg PO DAILY ud 04/30/17 Insulin Sliding Scale [Novolog Vial Sliding Scale -] 1 vial SQ ACHS units 04/30 Magnesium Hydrox 2400MG/30Ml [Milk of Magnesia -] 30 ml PO PRN PRN cup Meropenem 1 gm IV Q8H #126 vial 04/30/17 Picc Line Flush [Picc Line Flush -] 8 ml IVPUSH PRN PRN ml 04/30/17 Polyethylene Glycol 3350 [Miralax 119 gm Btl -] 17 gm PO DAILY bottle 04/30/17 oxyCODONE HCL [Roxicodone -] 5 mg PO Q8H PRN tablet MDD 5 04/30/17 oxyCODONE SR [Oxycontin] 10 mg PO BID tab.er.12h MDD 20 04/30/17 Review of Systems - Review of Systems Able to Perform ROS?: Yes Comments:: 06/06/17 19:53 CONSTITUTIONAL: Reported: Fever No reported: Chills, Diaphoresis, Generalized Weakness, Malaise, Loss of Appetite HEENT: No reported: Rhinorrhea, Nasal Congestion, Throat Pain, Throat Swelling, Difficulty Swallowing, Mouth Swelling, Ear Pain, Eye Pain, Visual Changes CARDIOVASCULAR: No reported: Chest Pain, Syncope, Palpitations, Irregular Heart Rate, Lightheadedness, Peripheral Edema RESPIRATORY: No reported: Cough, Shortness of Breath, SOB with Exertion, Orthopnea, Wheezing , Stridor, Hemoptysis GASTROINTESTINAL: No reported: Abdominal pain, Abdominal Distension, Nausea, Vomiting, Diarrhea, Constipation, Melena, Hematochezia GENITOURINARY: No reported: Dysuria, Frequency, Urgency, Hesitancy, Flank Pain, Genital Pain MUSCULOSKELETAL: Reported: Left leg and swelling No reported: Back pain, Neck Pain SKIN: No reported: Rash, Itching, Pallor HEMEATOLOGIC/IMMUNOLOGIC: Reported: Frequent leg infection s/p left knee replacements No reported: Easy Bleeding, Easy Bruising, Lymphadenopathy ENDOCRINE: No reported: Unexplained Weight Gain, Unexplained Weight Loss, Heat Intolerance , Cold Intolerance NEUROLOGIC: No reported: Headache, Paresthesias, Vertigo, Lightheadedness, Seizure, Mental Status Changes, Incontinence <Cailin Carrera - Last Filed: 06/06/17 19:53> *Physical Exam - Vital Signs Last Vital Signs Temp Pulse Resp BP Pulse Ox 99.8 F H 107 H 18 130/63 95 06/06/17 16:53 06/06/17 16:53 06/06/17 16:53 06/06/17 16:53 06/06/17 16:53 - Physical Exam Comments: 06/06/17 18:36 GENERAL: The patient is awake, alert, and fully oriented, Nontoxic - in no acute distress. HEAD: Normocephalic, atraumatic. EYES: extraocular movements intact, sclera anicteric, conjunctiva clear. ENT: Normal voice, Moist mucous membranes. NECK: Normal range of motion, supple LUNGS: Breath sounds equal, clear to auscultation bilaterally. No wheezes, no rhonchi, no rales. HEART: Regular rate and rhythm, normal S1 and S2 without murmur, rub or gallop. ABDOMEN: Soft, nontender, normoactive bowel sounds. No guarding, no rebound. . No CVA tenderness EXTREMITIES: significant edema on the left lower extremity, mild swelling/ fluctuance lateral to the L suprapatellar region without significant erythemainudruation, 5cm x 5cm open wound on the anterior L knee with serous drainage. NEUROLOGICAL: No facial assymetry, Normal speech, moving all 4 extremities paontneously and symemtrically PSYCH: Normal mood, normal affect. SKIN: hot to touch, Dry, normal turgor, <Avel Bobo - Last Filed: 06/06/17 19:15> - Vital Signs Last Vital Signs Temp Pulse Resp BP Pulse Ox 99.8 F H 107 H 18 130/63 95 06/06/17 16:53 06/06/17 16:53 06/06/17 16:53 06/06/17 16:53 06/06/17 16:53 <Cailin Carrera - Last Filed: 06/06/17 19:53> Heart Score/ECG Review - ECG Impressions Comment:: 06/06/17 19:15 Twelve-lead EKG was performed and reviewed by me. There is normal sinus rhythm Heart rate of 102 Left axis deviation Left Bundle-branch block <Avel Bobo - Last Filed: 06/06/17 19:15> Medical Decision Making - Medical Decision Making 06/06/17 18:37 May 2-year-old recent history of total knee replacements, located by [facility] , currently on ampicillin with a PICC line, [facility] fever. Patient has no other focal localizing symptoms. On exam the patient does have mild swelling to the L knee aspriated by ortho sepsis orderset obtained A portion of this note was documented by scribe services under my direction. I have reviewed the details of the note, within reason, and agree with the documentation with the following case summary and management plan written by me <Avel Bobo - Last Filed: 06/06/17 19:15> *DC/Admit/Observation/Transfer <Avel Bobo - Last Filed: 06/06/17 19:15> - Attestations Scribe Attestion: 06/06/17 19:53 Documentation prepared by Cailin Carrera, acting as biomedical electronics technician for Avel Bobo MD. <Cailin Carrera - Last Filed: 06/06/17 19:53> - Discharge Dispostion Condition at time of disposition: Good - Referrals Referrals: Nik Garcia MD [Primary Care Provider] - - Patient Instructions - Post Discharge Activity
[2017-06-06 20:16] LABS: BASO % 0.3 % (0-2.0); HEMATOCRIT 35.7 % (32.4-45.2); HEMOGLOBIN 12.1 GM/dl (10.7-15.3); LYMPH % 16.8 % (8-40); MCH 24.8 pg (25.7-33.7); MCHC 33.8 g/dl (32.0-36.0); MEAN CELL VOLUME 73.4 fl (80-96); MEAN PLT VOLUME 8.5 fl (7.5-11.1); NEUT % 75.9 % (42.8-82.8); PLATELET COUNT 371 K/MM3 (134-434); RBC 4.86 M/mm3 (3.60-5.2); RDW 17.7 % (11.6-15.6); WHITE BLOOD COUNT 14.1 K/mm3 (4.0-10.8)
[2017-06-06 20:19] LABS: ACTIVATED PTT 31.8 SECONDS (24.0-38.9)
[2017-06-06 20:22] LABS: ALK PHOS 149 U/L (32-92); ANION GAP 7 (8-16); BILIRUBIN,TOTAL 0.6 mg/dl (0.2-1.0); BLOOD UREA NITROGEN 13 mg/dl (7-18); CALCIUM 9.3 mg/dl (8.4-10.2); CHLORIDE 99 mmol/L (98-107); CO2 24 mmol/L (22-28); GLUCOSE,RANDOM 159 mg/dl (74-106); SGOT/AST 38 U/L (10-42); SGPT/ALT 31 U/L (10-40); SODIUM 130 mmol/L (136-145); TOT PROT 6.4 g/dl (6.4-8.3)
[2017-06-06 20:24] LABS: INR 1.41 (0.82-1.09); PROTHROMBIN TIME (PATIENT) 15.7 SEC (10.2-13.0)
[2017-06-06 20:29] LABS: CREATININE < 0.8 mg/dl (0.6-1.3)
--- NOTE | 2017-06-06 21:23 | PDOC ---
*Physical Exam - Vital Signs Last Vital Signs Temp Pulse Resp BP Pulse Ox 99.8 F H 107 H 18 130/63 95 06/06/17 16:53 06/06/17 16:53 06/06/17 16:53 06/06/17 16:53 06/06/17 16:53 ED Treatment Course - LABORATORY CBC & Chemistry Diagram: 06/06/17 19:45 06/06/17 19:45 - ADDITIONAL ORDERS Additional order review: Laboratory Results 06/06/17 06/06/17 06/06/17 19:45 19:45 19:45 PT with INR 15.7 H INR 1.41 H PTT (Actin FS) 31.8 VBG pH Cancelled POC VBG pCO2 Cancelled POC VBG pO2 Cancelled Mixed VBG HCO3 Cancelled Sodium Potassium Chloride Carbon Dioxide Anion Gap BUN Creatinine Creat Clearance w eGFR Random Glucose Calcium Total Bilirubin AST ALT Alkaline Phosphatase Troponin I 0.00 Total Protein Albumin 06/06/17 19:45 PT with INR INR PTT (Actin FS) VBG pH POC VBG pCO2 POC VBG pO2 Mixed VBG HCO3 Sodium 130 L Potassium 4.0 Chloride 99 Carbon Dioxide 24 Anion Gap 7 L BUN 13 D Creatinine < 0.8 Creat Clearance w eGFR > 60 Random Glucose 159 H D Calcium 9.3 Total Bilirubin 0.6 AST 38 ALT 31 Alkaline Phosphatase 149 H Troponin I Total Protein 6.4 Albumin 3.0 L 06/06/17 19:45 RBC 4.86 MCV 73.4 L MCHC 33.8 RDW 17.7 H D MPV 8.5 Neutrophils % 75.9 Lymphocytes % 16.8 Monocytes % 7.0 Eosinophils % 0.0 Basophils % 0.3 Progress Note - Progress Note Progress Note: Care of this patient received from . Evaluation did not reveal new bacterial source of fever/elevated white cell count ( specifically, chest x-ray and urinalysis were normal). Therefore, the patient will be transferred back to [facility] rehabilitation/usp for further antibiotic treatment of her prosthetic knee infection. Results of the culture and sensitivity arthrocentesis sample by orthopedic staff is pending Results and plan discussed with the patient and her family. They understood and agreed. *DC/Admit/Observation/Transfer Diagnosis at time of Disposition: Infection of prosthetic left knee joint Qualifiers: Encounter type: initial encounter Qualified Code(s): T84.54XA - Infection and inflammatory reaction due to internal left knee prosthesis, initial encounter - Discharge Dispostion Disposition: LONG-TERM FACILITY Condition at time of disposition: Stable - Referrals Referrals: iNk Garcia MD [Primary Care Provider] - - Patient Instructions Additional Instructions: continue antibiotics as previously Further care as per medical and orthopedic doctors Return to ER if knee pain worsens or high fever is persistent - Post Discharge Activity
[2017-06-06 22:32] LABS: PH,URINE 6.5 (4.5-8); URINE APPEARANCE Clear; URINE BILIRUBIN Negative (NEGATIVE); URINE BLOOD Negative (NEGATIVE); URINE COLOR YELLOW; URINE GLUCOSE (UA) Negative (NEGATIVE); URINE KETONE Negative (NEGATIVE); URINE LEUK ESTERASE Negative (NEGATIVE); URINE NITRITE Negative (NEGATIVE); URINE PROTEIN Negative (NEGATIVE); URINE UROBILINOGEN 0.2 (0.2-1.0)
--- NOTE | 2017-06-08 20:41 | EKG ---
Test Reason : Blood Pressure : / mmHG Vent. Rate : 102 BPM Atrial Rate : 102 BPM P-R Int : 160 ms QRS Dur : 138 ms QT Int : 378 ms P-R-T Axes : 016 -43 102 degrees QTc Int : 492 ms SINUS TACHYCARDIA LEFT AXIS DEVIATION LEFT BUNDLE BRANCH BLOCK ABNORMAL ECG WHEN COMPARED WITH ECG OF 23-APR-2017 13:28, NO SIGNIFICANT CHANGE WAS FOUND Confirmed by JONO THORNE MD ([id number]) on 06/08/2017 8:41:10 PM Referred By: MD VAUGHN Confirmed By:JONO THORNE MD
== END 2017-06-07 00:44 ==
LOC: FER 16:45
DX: T84.54XA Infection and inflammatory reaction due to internal left knee prosthesis, initial encounter (principal); Z96.652 Presence of left artificial knee joint; I10 Essential (primary) hypertension; I49.9 Cardiac arrhythmia, unspecified; E11.9 Type 2 diabetes mellitus without complications
CPT/HCPCS: 36415; 71045-TC-FY; 80053; 81003; 83605; 84484; 85025; 85610; 85730; 87040; 87070; 87075; 87086; 87205; 93005; 99282-25

== ENCOUNTER 2018-07-17 09:09 | Inpatient (IN) | payer OTHER ==
--- NOTE | 2018-07-17 10:08 | PDOC ---
History of Present Illness - General Chief Complaint: Pain, Acute Stated Complaint: LEG PAIN Time Seen by Provider: 07/17/18 09:26 - History of Present Illness Initial Comments: 07/17/18 10:05 63yo F hx HTN, DM, multiple orthopedic surgeries, b/l TKR 2016 c/b multiple post op infections (reports 10 surgeries, prosthesis removal, PICC line, wound vac), most recently completed daptoymcin 6 months ago after admission at [facility], p/w 2 days chills, fevers, malaise, and now pain in L knee. Pain worse with weight bearing. Reports significant pain and difficulty ranging the L knee , feels like previous infections. Could not ambulate today prompting ED visit, normally ambulates unassisted. Pt and son also report increased drainage from L leg and nausea. Denies CP, SOB, dizziness, vomiting. No change bowel habits. Denies focal weakness/numbness. Pt is followed by Dr. Manolo Rousseau from [facility] orthopedics. 07/17/18 10:32 Call made to [facility] ED for collateral; patient had culture of left knee in November 2017 which grew MSSA. Patient treated for infection at that time. Ortho note from March 2018 stated infection had resolved and patient was off antibiotics. Past History - Past Medical History Allergies/Adverse Reactions: Allergies Allergy/AdvReac Type Severity Reaction Status Date / Time No Known Allergies Allergy Verified 07/17/18 09:21 Home Medications: Ambulatory Orders metFORMIN HCL [Metformin HCl] 500 mg PO BID 01/14/17 Furosemide [Lasix] 20 mg PO DAILY 07/17/18 Hydrocodone/Acetaminophen [Hydrocodon-Acetaminophn 10-325] 1 each PO Q6H PRN Olmesartan Medoxomil 20 mg PO DAILY 07/17/18 Anemia: No Asthma: No Cancer: No Cardiac Disorders: Yes (heart arrythmias) CVA: No COPD: No CHF: No Dementia: No Diabetes: Yes GI Disorders: No Disorders: No HTN: Yes Hypercholesterolemia: No Liver Disease: No Seizures: No Thyroid Disease: No - Surgical History Abdominal Surgery: No Appendectomy: No Cardiac Surgery: No Cholecystectomy: No Lung Surgery: No Neurologic Surgery: No Orthopedic Surgery: Yes (RTKR , left knee replacement 01/14) - Suicide/Smoking/Psychosocial Hx Smoking History: Never smoked Have you smoked in the past 12 months: No Number of Cigarettes Smoked Daily: 0 Hx Alcohol Use: No Drug/Substance Use Hx: No Substance Use Type: None Hx Substance Use Treatment: No Review of Systems - Review of Systems Comments:: 07/17/18 10:40 GENERAL/CONSTITUTIONAL: +fever, chills and malaise HEAD, EYES, EARS, NOSE AND THROAT: No change in vision. No ear pain or discharge. No sore throat. GASTROINTESTINAL: +nausea, no vomiting, diarrhea or constipation. GENITOURINARY: No dysuria, frequency, or change in urination. CARDIOVASCULAR: No chest pain or shortness of breath. RESPIRATORY: No cough, wheezing, or hemoptysis. MUSCULOSKELETAL: +knee pain, no neck or back pain. SKIN: No rash NEUROLOGIC: No headache, vertigo, loss of consciousness, or change in strength/ sensation. ENDOCRINE: No increased thirst. No abnormal weight change. HEMATOLOGIC/LYMPHATIC: No anemia, easy bleeding, or history of blood clots. ALLERGIC/IMMUNOLOGIC: No hives or skin allergy. *Physical Exam - Vital Signs Last Vital Signs Temp Pulse Resp BP Pulse Ox 100.6 F H 106 H 20 132/81 95 07/17/18 10:02 07/17/18 10:02 07/17/18 10:02 07/17/18 10:02 07/17/18 10:02 - Physical Exam Comments: 07/17/18 10:56 GENERAL: Awake, alert, and fully oriented, in no acute distress. Very pleasant, non toxic EYES: PERRLA, EOMI, sclera anicteric, conjunctiva clear ENT: Oropharynx clear without exudates. Moist mucosa NECK: Normal ROM, supple, no lymphadenopathy, JVD, or masses LUNGS: Breath sounds equal, clear to auscultation bilaterally. No wheezes, and no crackles HEART: Regular rate and rhythm, normal S1 and S2, no murmurs, rubs or gallops ABDOMEN: Soft, nontender, normoactive bowel sounds. No guarding, no rebound. EXTREMITIES: FROM at L hip, unable to range passively or actively at L knee. 3+ edema to LLE, 1+ edema to RLE. palpable DP pulses b/l. NEUROLOGICAL: Normal speech, cranial nerves intact, equal strength and sensation b/l SKIN: multiple scars noted to LLE, linear scar along medial knee c/d/i. Round scar over L knee at site of previous wound vac, mostly dry with punctate ulcer at 4 o'clock with mild serosanguinous drainage. +warmth noted to LLE > RLE. Heart Score/ECG Review #1 07/17/18 11:01 Twelve-lead EKG was performed and reviewed by me. Sinus tachycardia, rate 105. Left axis deviation. Left bundle branch block. When compared to previous EKG, no significant change. ED Treatment Course - LABORATORY CBC & Chemistry Diagram: 07/18/18 06:00 07/18/18 06:00 - RADIOLOGY Radiology Studies Ordered: Category Date Time Status CHEST X-RAY PORTABLE* [RAD] Stat Radiology 07/17/18 09:38 Taken Medical Decision Making - Medical Decision Making 07/17/18 10:02 73yo F with MMP including L TKR c/b multiple infectious, removal of prosthesis, most recently completed course of daptomycin 6 months ago presents to the ED with fevers, chills, L knee pain, increased drainage c/f recurrent infection, possible septic joint in light of new inability to bear weight. Pt febrile and tachycardic on arrival, will initiate sepsis w/u, US to r/o DVT, and discuss with pt's orthopedic team at [place] (message left for Dr. Rousseau at 1030). 07/17/18 11:05 +leukocytosis to 11.7 CXR and UA neg for infection Awaiting call back from Dr. Rousseau 07/17/18 12:50 Dr. Rousseau's JANENE Mejia called, case discussed Discussed possible transfer given extensive records at [place] vs admit here She will discuss with Dr. Rousseau, call us back 07/17/18 14:16 No call back yet Call made out to Dr. Rousseau/JANENE Mejia office, message left with office staff 07/17/18 15:[address] out [address] Rousseau/[facility] Mejia office, message left with office staff 07/17/18 15:26 Call made out to [address]. Rousseau/JANENE Mejia office, no answer 07/17/18 15:[address] Rousseau/JANENE Mejia At this point, covered pt empirically with meropenem and daptomycin based on previous coverage here in our EMR. ID consulted at this time, to discuss further coverage 07/17/18 15:40 JANENE Mejia called back, has no additional recommendations, agrees with our abx coverage and admission here to [facility]. States previous infections resolve with IV antibiotics. Hospitalist paged for admission 07/17/18 16:[address] rTujillo, requests ortho c/s for Dr. Marek Simpson which has been placed 07/17/18 16:[address] Gilliland who will see pt. Pt admitted to Dr. Hermes Trujillo Case discussed in detail with admitting physician including history, physical exam and ancillary studies. Admitting physician has assumed care for the patient, will follow all pending diagnostics and will complete the evaluation and treatment. 07/17/18 17:[address] Simpson, has no additional recommendations. Has not seen pt since pt transferred care to Dr. Rousseau for removal of prosthesis and fusion of the knee. *DC/Admit/Observation/Transfer Diagnosis at time of Disposition: Cellulitis Qualifiers: Site of cellulitis of extremity: lower extremity Laterality: right - Discharge Dispostion Condition at time of disposition: Stable - Referrals - Patient Instructions - Post Discharge Activity - Attestations Physician Attestion: 07/18/18 16:44 I, Dr. Dulce Castellano MD, attest that this document has been prepared under my direction and personally reviewed by me in its entirety. I further attest, that it accurately reflects all work, treatment, procedures and medical decision -making performed by me.
[2018-07-17 10:11] LABS: BASO % 0.6 % (0-2.0); EOS % 0.1 % (0-4.5); HEMATOCRIT 37.8 % (32.4-45.2); HEMOGLOBIN 12.4 GM/dL (10.7-15.3); LYMPH % 8.7 % (8-40); MCH 27.1 pg (25.7-33.7); MCHC 32.8 g/dl (32.0-36.0); MEAN CELL VOLUME 82.8 fl (80-96); MEAN PLT VOLUME 8.4 fl (7.5-11.1); NEUT % 83.6 % (42.8-82.8); PLATELET COUNT 211 K/MM3 (134-434); RBC 4.56 M/mm3 (3.60-5.2); RDW 14.3 % (11.6-15.6); WHITE BLOOD COUNT 11.7 K/mm3 (4.0-10.0)
[2018-07-17] MEDS ORDERED: ACETAMINOPHEN 1000 MG/100 ML VIAL (NON FORMULARY) IVPB ONE (10:12)
[2018-07-17] MEDS ORDERED: ACETAMINOPHEN INJECTION 100 ML IVPB ONE (10:13)
[2018-07-17 10:24] LABS: INR 1.16 (0.83-1.09); PROTHROMBIN TIME (PATIENT) 13.7 SEC (9.7-13.0)
[2018-07-17 10:26] LABS: ACTIVATED PTT 30.9 SECONDS (25.2-36.5)
--- NOTE | 2018-07-17 10:29 | EKG ---
Test Reason : Blood Pressure : / mmHG Vent. Rate : 105 BPM Atrial Rate : 105 BPM P-R Int : 166 ms QRS Dur : 142 ms QT Int : 368 ms P-R-T Axes : 028 -44 103 degrees QTc Int : 486 ms SINUS TACHYCARDIA LEFT AXIS DEVIATION LEFT BUNDLE BRANCH BLOCK ABNORMAL ECG WHEN COMPARED WITH ECG OF 06-JUN-2017 18:20, NO SIGNIFICANT CHANGE WAS FOUND Confirmed by ADRIANE CHAMBERS MD ([id number]) on 07/17/2018 10:28:53 AM Referred By: Confirmed By:ADRIANE CHAMBERS MD
[2018-07-17 10:33] LABS: EPI CELLS 2.5 /HPF (0-5/HPF); PH,URINE 5.5 (5.0-8.0); URINE APPEARANCE CLEAR; URINE BILIRUBIN NEGATIVE (NEGATIVE); URINE CASTS 3 /lpf (0-8); URINE COLOR YELLOW; URINE GLUCOSE (UA) NEGATIVE (NEGATIVE); URINE KETONE TRACE (NEGATIVE); URINE LEUK ESTERASE NEGATIVE (NEGATIVE); URINE NITRITE NEGATIVE (NEGATIVE); URINE PROTEIN TRACE (NEGATIVE); URINE RBC 2 /hpf (0-4); URINE WBC 1 /hpf (0-5)
[2018-07-17 10:35] LABS: VENOUS PC02 36.6 mmHg (41-51); VENOUS PH 7.4 (7.31-7.41); VENOUS PO2 65.5 mmHg (30-40)
[2018-07-17 10:45] LABS: ALBUMIN 3.2 g/dl (3.4-5.0); ALK PHOS 140 U/L (45-117); ANION GAP 6 MMOL/L (8-16); BILIRUBIN,TOTAL 0.6 mg/dL (0.2-1); BLOOD UREA NITROGEN 15 mg/dL (7-18); CALCIUM 8.9 mg/dL (8.5-10.1); CHLORIDE 106 mmol/L (98-107); CO2 23 mmol/L (21-32); CREATININE 0.6 mg/dL (0.55-1.3); GLUCOSE,RANDOM 130 mg/dL (74-106); POTASSIUM 3.9 mmol/L (3.5-5.1); SGOT/AST 22 U/L (15-37); SGPT/ALT 19 U/L (13-61); SODIUM 135 mmol/L (136-145)
[2018-07-17 10:54] LABS: URINE BACTERIA 0.8 /hpf (NEGATIVE)
[2018-07-17] MEDS ORDERED: MEROPENEM 1 GM in DEXTROSE 5%-WATER 100 ML IVPB ONE (15:38)
[2018-07-17] MEDS ORDERED: DAPTOMYCIN 540 MG in SODIUM CHLORIDE 50 ML IVPB ONE (15:42)
--- NOTE | 2018-07-17 16:57 | HP ---
Admitting History and Physical - Primary Care Physician PCP: Sabino Trivedi C - Admission Chief Complaint: Left Leg pain and redness with fever History of Present Illness: 73 yrs old F with H/O HTN, T2DM, s/p R TKR (05/17), s/p L TKR (01/16/17), patient fell on her L knee 2 days after her L TKR surgery and it was complicated by wound dehiscence.TKR subsequently developed recurrent infection treated with IV abx, multiple wash eventually transferred to [facility] for Complicated prosthesis unit under Dr. Rousseau care , Left knee implant was removed underwent Left knee arthrodesis with metallic implant and treated with Daptomycine with good result complete treatment 6 months ago now F/U at [facility] clinic with Dr Morejon last visit was 2wks ago, today present with c/o Left LE pain, erythema, worsening swelling and erytythema involving jacky leh extending to along the medial aspect of thigh with fever and chills without any trauma or skin lesion, denies any pain in Rt knee, in the Ed w/u shows elevated TWBC, fever, , LE Doppler poor quality but - ve for DVT,[facility] Ortho and ID consulted is being admitted for IV abx, ED also contacted Dr Rousseau office recommended hospitalization for IV abx. History Source: Patient, Family Member - Past Medical History Cardiovascular: Yes: HTN Gastrointestinal: Yes: GERD Endocrine: Yes: Diabetes Mellitus - Smoking History Smoking history: Never smoked Have you smoked in the past 12 months: No Aproximately how many cigarettes per day: 0 - Alcohol/Substance Use Hx Alcohol Use: No - Social History Usual Living Arrangement: Yes: With Child Home Medications - Allergies Allergies/Adverse Reactions: Allergies Allergy/AdvReac Type Severity Reaction Status Date / Time No Known Allergies Allergy Verified 07/17/18 09:21 - Home Medications Home Medications: Ambulatory Orders metFORMIN HCL [Metformin HCl] 500 mg PO BID 01/14/17 Furosemide [Lasix] 20 mg PO DAILY 07/17/18 Hydrocodone/Acetaminophen [Hydrocodon-Acetaminophn 10-325] 1 each PO Q6H PRN Olmesartan Medoxomil 20 mg PO DAILY 07/17/18 Family Disease History - Family Disease History Family History: Unremarkable Review of Systems - Review of Systems Constitutional: reports: Chills, Fever, Loss of Appetite HENT: denies: Difficult Swallowing, Ear Discharge, Ear Pain Neck: denies: Decreased ROM, Lumps, Pain on Movement, Stiffness Cardiovascular: reports: Edema. denies: Chest Pain, Palpitations, Shortness of Breath Respiratory: denies: Cough, Exercise Intolerance, Hemoptysis Genitourinary: denies: Burning, Discharge, Dysuria Musculoskeletal: reports: Other (Left LE Cellulitis). denies: Back Pain, Crepitus, Decreased ROM Neurological: denies: Change in LOC, Change in Speech Endocrine: denies: Excessive Sweating, Flushing, Increased Hunger Pain Intensity: 3 Physical Examination Vital Signs: Vital Signs Temperature 98.2 F 07/17/18 12:53 Pulse Rate 90 07/17/18 12:53 Respiratory Rate 18 07/17/18 12:53 Blood Pressure 132/81 07/17/18 10:02 O2 Sat by Pulse Oximetry (%) 96 07/17/18 12:53 Constitutional: Yes: Well Nourished, No Distress Eyes: Yes: Conjunctiva Clear, EOM Intact HENT: Yes: Atraumatic, Normocephalic. No: Nasal Congestion, Pharyngeal Erythema Neck: Yes: Supple, Trachea Midline. No: Decreased ROM, Lymphadenopathy Cardiovascular: Yes: Regular Rate and Rhythm, S1, S2. No: JVD, Murmur Respiratory: Yes: Regular, CTA Bilaterally Gastrointestinal: Yes: Normal Bowel Sounds, Soft Musculoskeletal: Yes: Other (Left Knee s/p arthrodesis inflamed scar extensive cellulitis of Leg and medial aspaect of thigh) Edema: Yes Edema: LLE: 1+, RLE: Trace Peripheral Pulses: Left Doralis Pedis: 1+, Right Dorsalis Pedis: 1+ Integumentary: Yes: Other (Left LE Cellulitis) Neurological: Yes: Alert, Oriented ...Motor Strength: WNL, LUE, LLE, RUE, RLE Psychiatric: Yes: Alert, Oriented Labs: CBC,CMP WBC 11.7 K/mm3 (4.0-10.0) H 07/17/18 10:00 RBC 4.56 M/mm3 (3.60-5.2) 07/17/18 10:00 Hgb 12.4 GM/dL (10.7-15.3) 07/17/18 10:00 Hct 37.8 % (32.4-45.2) D 07/17/18 10:00 MCV 82.8 fl (80-96) 07/17/18 10:00 MCH 27.1 pg (25.7-33.7) 07/17/18 10:00 MCHC 32.8 g/dl (32.0-36.0) 07/17/18 10:00 RDW 14.3 % (11.6-15.6) D 07/17/18 10:00 Plt Count 211 K/MM3 (134-434) D 07/17/18 10:00 MPV 8.4 fl (7.5-11.1) D 07/17/18 10:00 Absolute Neuts (auto) 9.8 K/mm3 (1.5-8.0) H 07/17/18 10:00 Neutrophils % 83.6 % (42.8-82.8) H D 07/17/18 10:00 Lymphocytes % 8.7 % (8-40) D 07/17/18 10:00 Monocytes % 7.0 % (3.8-10.2) 07/17/18 10:00 Eosinophils % 0.1 % (0-4.5) D 07/17/18 10:00 Basophils % 0.6 % (0-2.0) 07/17/18 10:00 Nucleated RBC % 0 % (0-0) 07/17/18 10:00 Sodium 135 mmol/L (136-145) L 07/17/18 10:02 Potassium 3.9 mmol/L (3.5-5.1) 07/17/18 10:02 Chloride 106 mmol/L (98-107) 07/17/18 10:02 Carbon Dioxide 23 mmol/L (21-32) 07/17/18 10:02 Anion Gap 6 MMOL/L (8-16) L 07/17/18 10:02 BUN 15 mg/dL (7-18) 07/17/18 10:02 Creatinine 0.6 mg/dL (0.55-1.3) 07/17/18 10:02 Creat Clearance w eGFR 98.27 (>60) 07/17/18 10:02 Random Glucose 130 mg/dL (74-106) H 07/17/18 10:02 Lactic Acid 1.0 mmol/L (0.4-2.0) 07/17/18 10:02 Calcium 8.9 mg/dL (8.5-10.1) 07/17/18 10:02 Total Bilirubin 0.6 mg/dL (0.2-1) 07/17/18 10:02 AST 22 U/L (15-37) 07/17/18 10:02 ALT 19 U/L (13-61) 07/17/18 10:02 Alkaline Phosphatase 140 U/L (45-117) H 07/17/18 10:02 Troponin I < 0.02 ng/ml (0.00-0.05) 07/17/18 10:00 Total Protein 7.0 g/dl (6.4-8.2) 07/17/18 10:02 Albumin 3.2 g/dl (3.4-5.0) L 07/17/18 10:02 Imaging - Results Chest X-ray: Report Reviewed (Clacified aorta , cardiomegaly) Ultrasound: Report Reviewed (LE Doppler no obvious DVT) Problem List - Problems (1) Cellulitis of left lower extremity Assessment/Plan: complicated , sever previously treted with broad spectrum am responded to Daptomycine considering iplant and H/O recurrent infection ID and ortho at [place] consulted and received Daptomycine and Meropenem ,will f/u final recommendation for empiric abx choice, Left Knee Xar, ESR, CRP, tylenol for fever. Code(s): L03.116 - CELLULITIS OF LEFT LOWER LIMB (2) HTN (hypertension) Assessment/Plan: Resume home meds at present well controlled Code(s): I10 - ESSENTIAL (PRIMARY) HYPERTENSION (3) T2DM (type 2 diabetes mellitus) Assessment/Plan: Hold Metformin accucheck cont correction dose Lispro Code(s): E11.9 - TYPE 2 DIABETES MELLITUS WITHOUT COMPLICATIONS (4) Obesity (BMI 30-39.9) Assessment/Plan: Nutrion consult as out patient. Code(s): E66.9 - OBESITY, UNSPECIFIED
[2018-07-17] MEDS ORDERED: ENOXAPARIN NA (PORCINE) 40 MG/0.4 ML DISP.SYRIN SQ ONE (17:19)
[2018-07-17] MEDS: INSULIN SLIDING SCALE (NOVOLOG) 1 VIAL SQ SCH (17:27)
[2018-07-17] MEDS: ENOXAPARIN NA (PORCINE) 40 MG/0.4 ML DISP.SYRIN SQ SCH (17:27)
[2018-07-17] MEDS: ACETAMINOPHEN 325 MG TABLET (FP) PO PRN (20:01)
[2018-07-17 22:20] VITALS: BMI 38.0
[2018-07-18] MEDS ORDERED: MEROPENEM 1 GM VIAL (RESTRICTED TO ID) IVPB ONE ×3 (01:20→16:34)
[2018-07-18] MEDS ORDERED: DEXTROSE 5%-WATER 100 ML IVPB ONE ×3 (01:20→16:34)
[2018-07-18] MEDS: MEROPENEM 1 GM in DEXTROSE 5%-WATER 100 ML IVPB SCH ×5 (01:25→19:30)
[2018-07-18] MEDS: ACETAMINOPHEN 325 MG TABLET (FP) PO PRN ×2 (06:12→16:19)
[2018-07-18] MEDS: INSULIN SLIDING SCALE (NOVOLOG) 1 VIAL SQ SCH ×3 (06:17→17:35)
[2018-07-18] MEDS ORDERED: INSULIN (NOVOLOG) ASPART 100 UNITS/ML 10ML VIAL ONE (06:35)
[2018-07-18 07:00] LABS: BASO % 0.4 % (0-2.0); EOS % 0.3 % (0-4.5); HEMATOCRIT 37.4 % (32.4-45.2); HEMOGLOBIN 12.4 GM/dL (10.7-15.3); LYMPH % 12.5 % (8-40); MCH 27.6 pg (25.7-33.7); MCHC 33.2 g/dl (32.0-36.0); MEAN PLT VOLUME 8.9 fl (7.5-11.1); MONO % 7.5 % (3.8-10.2); NEUT % 79.3 % (42.8-82.8); PLATELET COUNT 209 K/MM3 (134-434); RBC 4.51 M/mm3 (3.60-5.2); RDW 14.1 % (11.6-15.6); WHITE BLOOD COUNT 10.6 K/mm3 (4.0-10.0)
[2018-07-18 07:44] LABS: ANION GAP 8 MMOL/L (8-16); BLOOD UREA NITROGEN 11 mg/dL (7-18); CALCIUM 8.9 mg/dL (8.5-10.1); CHLORIDE 105 mmol/L (98-107); CO2 24 mmol/L (21-32); CREATININE 0.6 mg/dL (0.55-1.3); GLUCOSE,RANDOM 117 mg/dL (74-106); POTASSIUM 3.9 mmol/L (3.5-5.1); SODIUM 137 mmol/L (136-145)
[2018-07-18] MEDS: ENOXAPARIN NA (PORCINE) 40 MG/0.4 ML DISP.SYRIN SQ SCH (09:01)
[2018-07-18] MEDS: VALSARTAN 160 MG TABLET (UD) PO SCH (09:01)
[2018-07-18] MEDS: oxyCODONE HCL 5 MG TABLET PO PRN ×2 (09:03→16:18)
--- NOTE | 2018-07-18 09:09 | PN ---
Progress Note, Physician - Current Medication List Current Medications: Active Medications Acetaminophen (Tylenol -) 650 mg PO Q6H PRN PRN Reason: FEVER Enoxaparin Sodium (Lovenox -) 40 mg SQ DAILY [facility] Last Admin: 07/18/18 09:01 Dose: 40 mg Furosemide (Lasix -) 20 mg PO DAILY [facility] Meropenem 1 gm/ Dextrose 100 mls @ 200 mls/hr IVPB Q8H-IV [facility] Stop: 07/18/18 10:29 Last Admin: 07/18/18 09:00 Dose: 200 mls/hr Meropenem 1 gm/ Dextrose 250 mls @ 500 mls/hr IVPB Q8H-IV [facility] Insulin Aspart (Novolog Vial Sliding Scale -) 1 vial SQ TIDAC [facility]; Protocol Last Admin: 07/18/18 06:17 Dose: Not Given Oxycodone HCl (Roxicodone -) 5 mg PO Q6H PRN PRN Reason: PAIN LEVEL 6-10 Last Admin: 07/18/18 09:03 Dose: 5 mg Valsartan (Diovan -) 160 mg PO DAILY [facility] Last Admin: 07/18/18 09:01 Dose: 160 mg - Objective Vital Signs: Vital Signs Temperature 100.5 F H 07/18/18 06:00 Pulse Rate 100 H 07/18/18 06:00 Respiratory Rate 17 07/18/18 06:00 Blood Pressure 136/64 07/18/18 06:00 O2 Sat by Pulse Oximetry (%) 95 07/17/18 21:38 Constitutional: Yes: Well Nourished, No Distress, Calm Eyes: Yes: WNL, Conjunctiva Clear, EOM Intact HENT: Yes: WNL, Atraumatic, Normocephalic Neck: Yes: WNL, Supple, Trachea Midline Cardiovascular: Yes: WNL, Regular Rate and Rhythm, S1, S2 Respiratory: Yes: WNL, Regular, CTA Bilaterally Gastrointestinal: Yes: WNL, Normal Bowel Sounds, Soft Musculoskeletal: Yes: WNL Extremities: Yes: WNL Edema: Yes Peripheral Pulses WNL: Yes Integumentary: Yes: WNL Wound/Incision: Yes: Clean/Dry, Well Approximated Neurological: Yes: WNL, Alert, Oriented ...Motor Strength: WNL Psychiatric: Yes: WNL, Alert, Oriented Labs: CBC, BMP 07/18/18 06:00 07/18/18 06:00 INR, PTT INR 1.16 (0.83-1.09) H 07/17/18 10:00 - ....Imaging Chest X-ray: Image Reviewed X-ray: Report Reviewed EKG: Report Reviewed, Image Reviewed Assessment/Plan (1) Cellulitis of left lower extremity complicated , sever previously treted with broad spectrum am responded to Daptomycine considering iplant and H/O recurrent infection ID and ortho at [place] consulted and received Daptomycine and Meropenem ,will f/u final recommendation for empiric abx choice, Left Knee Xar, ESR, CRP, tylenol for fever. (2) HTN (hypertension) Resume home meds at present well controlled (3) T2DM (type 2 diabetes mellitus) Hold Metformin accucheck cont correction dose Lispro (4) Obesity (BMI 30-39.9) Nutrion consult as out patient.
[2018-07-18] MEDS: FUROSEMIDE 20 MG TABLET (FP) PO SCH (09:42)
--- NOTE | 2018-07-18 10:12 | PN ---
Progress Note (short form) - Note Progress Note: Case discussed with ER physician 73yo female with complicated hx,/p knee replacement, fall with wound dehiscence , multiple washouts, antibiotic spacers. Ultimately the infection was unable to be eradicated and the knee was fused (arthrodesis) at [place] by Dr. Manolo Rousseau. At this point there is really no further orthopedic intervention I can offer. Her two options if reinfected are: 1. Lifetime suppressive antibiotics 2. Above the knee amputation I recommend ID consult and f/u with Dr. Rousseau as an outpatient to discuss the latter option if necessary.
--- NOTE | 2018-07-18 15:28 | PN ---
Progress Note (short form) - Note Progress Note: ID CONSULT DICTATED CELLULITIS L LE HX CHRONICALLY INFECTED L TKR ? HX ADVERSE CEPHALOSPORIN ALLERGY PENDING C/S EMPIRIC MEROPENEM/ DAPTO OBTAIN OUTSIDE RECORDS/ CULTURE RESULTS
[2018-07-18] MEDS: DAPTOMYCIN 540 MG in SODIUM CHLORIDE 50 ML IVPB SCH (16:55)
[2018-07-18] MEDS: MEROPENEM 1 GM in DEXTROSE 5%-WATER - 250 ML IVPB SCH ×2 (19:30→19:31)
[2018-07-19] MEDS ORDERED: MEROPENEM 1 GM VIAL (RESTRICTED TO ID) IVPB ONE ×3 (00:49→17:04)
[2018-07-19] MEDS ORDERED: DEXTROSE 5%-WATER 100 ML IVPB ONE ×3 (00:49→17:04)
[2018-07-19] MEDS: MEROPENEM 1 GM in DEXTROSE 5%-WATER 100 ML IVPB SCH ×3 (01:26→17:08)
[2018-07-19] MEDS: oxyCODONE HCL 5 MG TABLET PO PRN (01:31)
[2018-07-19] MEDS ORDERED: diphenhydrAMINE HCL 25 MG CAPSULE (FP) PO ONE (01:35)
[2018-07-19] MEDS: INSULIN SLIDING SCALE (NOVOLOG) 1 VIAL SQ SCH ×3 (06:04→16:27)
[2018-07-19 07:27] LABS: BASO % 0.4 % (0-2.0); EOS % 0.8 % (0-4.5); HEMOGLOBIN 12.1 GM/dL (10.7-15.3); LYMPH % 16.5 % (8-40); MCH 27.4 pg (25.7-33.7); MCHC 32.8 g/dl (32.0-36.0); MEAN CELL VOLUME 83.4 fl (80-96); MONO % 8.9 % (3.8-10.2); NEUT % 73.4 % (42.8-82.8); PLATELET COUNT 234 K/MM3 (134-434); RBC 4.43 M/mm3 (3.60-5.2); RDW 14.1 % (11.6-15.6); WHITE BLOOD COUNT 9.8 K/mm3 (4.0-10.0)
[2018-07-19 07:53] LABS: ALBUMIN 2.7 g/dl (3.4-5.0); ALK PHOS 139 U/L (45-117); ANION GAP 7 MMOL/L (8-16); BILIRUBIN,TOTAL 0.8 mg/dL (0.2-1); BLOOD UREA NITROGEN 11 mg/dL (7-18); CALCIUM 8.5 mg/dL (8.5-10.1); CHLORIDE 102 mmol/L (98-107); CO2 25 mmol/L (21-32); CREATININE 0.6 mg/dL (0.55-1.3); GLUCOSE,RANDOM 101 mg/dL (74-106); POTASSIUM 3.9 mmol/L (3.5-5.1); SGOT/AST 20 U/L (15-37); SGPT/ALT 18 U/L (13-61); SODIUM 134 mmol/L (136-145); TOT PROT 6.4 g/dl (6.4-8.2)
--- NOTE | 2018-07-19 09:01 | CONS ---
INFECTIOUS DISEASE CONSULTATION DATE OF CONSULTATION: DATE OF DICTATION: 07/18/2018 CHIEF COMPLAINT: The patient is a 73-year-old female who was evaluated for a cellulitis of the lower extremity. HISTORY OF PRESENT ILLNESS: The patient has a complicated past orthopedic surgery history. She is status post bilateral total knee replacements. Her left total knee replacement was done in 2017. Her postoperative course was complicated by infected prosthesis. She required multiple surgeries including removal of the prosthesis and placement of spacer device. She received long courses of IV antibiotic therapy. Most recently she underwent a fusion of the left lower extremity. She has been off antibiotics for several months. She now presents with worsening left knee pain. She developed progressive pain to the point where she could not ambulate. She also complained of generalized weakness, malaise, fever and chills. She presented to the emergency room where she was noted to have fever of 102.8 and elevated white blood cell count. Cultures were obtained. She was empirically treated with vancomycin and Zosyn. She denies any traumatic injury to her left lower extremity. As noted, she has had multiple left knee infections. She was hospitalized at [facility] in March 2017, at which time cultures were positive for pseudomonas. She received a prolonged course of IV meropenem. During her hospitalization she had had an ADVERSE REACTION TO A CEPHALOSPORIN. PAST MEDICAL HISTORY: Positive for hypertension, diabetes. PAST SURGICAL HISTORY: As per HPI. ALLERGIES: No known allergies. LABORATORY DATA: White count 10.6, hematocrit 37.4, platelets 209, creatinine 0.6, ESR 38, C-reactive protein 18.3. Chest x-ray negative. PHYSICAL EXAMINATION: General: She is awake and alert. She is not acutely toxic appearing. Vital Signs: Temperature 100, T-max 102.8, blood pressure 150/65, pulse 99 regular, respirations 20 per minute. HEENT: Sclerae anicteric. Heart: Sounds S1, S2. Lungs: Clear. Abdomen: Obese, soft, nontender. Extremities: Examination of the left lower extremity healed surgical scars present over the left patella. There is confluent erythema, warmth and swelling involving the left lower extremity from the mid tibial area to the ankle. No crepitus or fluctuance. No lymphangitic streaking. IMPRESSION: 1. Cellulitis of the left lower extremity. 2. Rule out sepsis secondary to skin focus. 3. History of chronically infected left total knee replacement. 4. ADVERSE CEPHALOSPORIN REACTION. PLAN: Case discussed with family members. Will obtain additional information regarding recent culture results. Empiric antibiotic coverage pending sepsis workup with meropenem. In addition, will give daptomycin based on reports of previous wound cultures. Further recommendations pending culture results. Will follow. Thank you for the kind referral. ADRIANE SMITH M.D. ELÍAS/[id number]
[2018-07-19] MEDS: FUROSEMIDE 20 MG TABLET (FP) PO SCH (09:19)
[2018-07-19] MEDS: ENOXAPARIN NA (PORCINE) 40 MG/0.4 ML DISP.SYRIN SQ SCH (09:19)
[2018-07-19] MEDS: VALSARTAN 160 MG TABLET (UD) PO SCH (09:19)
[2018-07-19] MEDS: ACETAMINOPHEN 325 MG TABLET (FP) PO PRN ×2 (09:24→17:11)
[2018-07-19] MEDS: DAPTOMYCIN 540 MG in SODIUM CHLORIDE 50 ML IVPB SCH (10:28)
--- NOTE | 2018-07-19 10:56 | PN ---
Progress Note, Physician Chief Complaint: patient stated she is doing better, and wants to go home to attend her granddaughters wedding soon. I explained to her that she cannot be discharged unless she wants to leave against medical advice - Current Medication List Current Medications: Active Medications Acetaminophen (Tylenol -) 650 mg PO Q6H PRN PRN Reason: FEVER Last Admin: 07/19/18 09:24 Dose: 650 mg Enoxaparin Sodium (Lovenox -) 40 mg SQ DAILY [facility] Last Admin: 07/19/18 09:19 Dose: 40 mg Furosemide (Lasix -) 20 mg PO DAILY [facility] Last Admin: 07/19/18 09:19 Dose: 20 mg Meropenem 1 gm/ Dextrose 100 mls @ 200 mls/hr IVPB Q8H-IV [facility] Last Admin: 07/19/18 09:18 Dose: 200 mls/hr Daptomycin 540 mg/ Sodium (Chloride) 50 mls @ 100 mls/hr IVPB DAILY [facility]; Protocol Last Admin: 07/19/18 10:28 Dose: 100 mls/hr Insulin Aspart (Novolog Vial Sliding Scale -) 1 vial SQ TIDAC [facility]; Protocol Last Admin: 07/19/18 06:04 Dose: Not Given Oxycodone HCl (Roxicodone -) 5 mg PO Q6H PRN PRN Reason: PAIN LEVEL 6-10 Last Admin: 07/19/18 01:31 Dose: 5 mg Valsartan (Diovan -) 160 mg PO DAILY [facility] Last Admin: 07/19/18 09:19 Dose: 160 mg - Objective Vital Signs: Vital Signs Temperature 100.1 F H 07/19/18 10:00 Pulse Rate 103 H 07/19/18 10:00 Respiratory Rate 18 07/19/18 10:00 Blood Pressure 117/77 07/19/18 10:00 O2 Sat by Pulse Oximetry (%) 95 07/18/18 22:00 Constitutional: Yes: Well Nourished, No Distress, Calm, Obese Eyes: Yes: WNL, Conjunctiva Clear, EOM Intact HENT: Yes: WNL, Atraumatic, Normocephalic Neck: Yes: WNL, Supple, Trachea Midline Cardiovascular: Yes: WNL, Regular Rate and Rhythm, S1, S2 Respiratory: Yes: WNL, Regular, CTA Bilaterally Gastrointestinal: Yes: WNL, Normal Bowel Sounds Musculoskeletal: Yes: Joint Swelling Extremities: Yes: Erythema Edema: Yes Edema: LLE: 3+ Peripheral Pulses WNL: Yes Integumentary: Yes: WNL Wound/Incision: Yes: Clean/Dry Neurological: Yes: WNL, Alert, Oriented ...Motor Strength: LLE (weakness due to the fusion of the knee joint) Psychiatric: Yes: WNL, Alert, Oriented Labs: CBC, BMP 07/19/18 06:00 07/19/18 06:00 INR, PTT INR 1.16 (0.83-1.09) H 07/17/18 10:00 Assessment/Plan (1) Cellulitis of left lower extremity complicated , sever previously treted with broad spectrum am responded to Daptomycine considering iplant and H/O recurrent infection ID and ortho at [place] consulted and received Daptomycine and Meropenem ,will f/u final recommendation for empiric abx choice, Left Knee Xar, ESR, CRP, tylenol for fever. (2) HTN (hypertension) Resume home meds at present well controlled (3) T2DM (type 2 diabetes mellitus) Hold Metformin accucheck cont correction dose Lispro (4) Obesity (BMI 30-39.9) Nutrion consult as out patient.
[2018-07-20] MEDS: ACETAMINOPHEN 325 MG TABLET (FP) PO PRN ×2 (00:49→21:15)
[2018-07-20] MEDS ORDERED: diphenhydrAMINE HCL 25 MG CAPSULE (FP) PO ONE ×2 (01:31→21:00)
[2018-07-20] MEDS ORDERED: MEROPENEM 1 GM VIAL (RESTRICTED TO ID) IVPB ONE ×3 (02:05→17:39)
[2018-07-20] MEDS ORDERED: DEXTROSE 5%-WATER 100 ML IVPB ONE ×3 (02:05→17:39)
[2018-07-20] MEDS: MEROPENEM 1 GM in DEXTROSE 5%-WATER 100 ML IVPB SCH ×3 (02:09→17:41)
[2018-07-20] MEDS: INSULIN SLIDING SCALE (NOVOLOG) 1 VIAL SQ SCH ×3 (06:03→17:11)
[2018-07-20 07:22] LABS: BASO % 0.6 % (0-2.0); EOS % 1.6 % (0-4.5); HEMATOCRIT 38.5 % (32.4-45.2); HEMOGLOBIN 12.7 GM/dL (10.7-15.3); LYMPH % 14.3 % (8-40); MCH 27.6 pg (25.7-33.7); MCHC 33.1 g/dl (32.0-36.0); MEAN CELL VOLUME 83.3 fl (80-96); MEAN PLT VOLUME 8.8 fl (7.5-11.1); MONO % 10.2 % (3.8-10.2); NEUT % 73.3 % (42.8-82.8); PLATELET COUNT 243 K/MM3 (134-434); RBC 4.62 M/mm3 (3.60-5.2); RDW 13.8 % (11.6-15.6); WHITE BLOOD COUNT 9.3 K/mm3 (4.0-10.0)
[2018-07-20 07:52] LABS: ALBUMIN 2.8 g/dl (3.4-5.0); ALK PHOS 159 U/L (45-117); ANION GAP 10 MMOL/L (8-16); BILIRUBIN,TOTAL 0.5 mg/dL (0.2-1); BLOOD UREA NITROGEN 12 mg/dL (7-18); CALCIUM 8.5 mg/dL (8.5-10.1); CHLORIDE 105 mmol/L (98-107); CO2 25 mmol/L (21-32); CREATININE 0.6 mg/dL (0.55-1.3); GLUCOSE,RANDOM 108 mg/dL (74-106); POTASSIUM 3.9 mmol/L (3.5-5.1); SGOT/AST 27 U/L (15-37); SGPT/ALT 23 U/L (13-61); SODIUM 139 mmol/L (136-145); TOT PROT 6.3 g/dl (6.4-8.2)
[2018-07-20] MEDS: FUROSEMIDE 20 MG TABLET (FP) PO SCH (09:26)
--- NOTE | 2018-07-20 09:26 | PN ---
Progress Note, Physician Chief Complaint: Feels improved - Current Medication List Current Medications: Active Medications Acetaminophen (Tylenol -) 650 mg PO Q6H PRN PRN Reason: FEVER Last Admin: 07/20/18 00:49 Dose: 650 mg Enoxaparin Sodium (Lovenox -) 40 mg SQ DAILY [facility] Last Admin: 07/19/18 09:19 Dose: 40 mg Furosemide (Lasix -) 20 mg PO DAILY [facility] Last Admin: 07/19/18 09:19 Dose: 20 mg Meropenem 1 gm/ Dextrose 100 mls @ 200 mls/hr IVPB Q8H-IV [facility] Last Admin: 07/20/18 02:09 Dose: 200 mls/hr Daptomycin 540 mg/ Sodium (Chloride) 50 mls @ 100 mls/hr IVPB DAILY [facility]; Protocol Last Admin: 07/19/18 10:28 Dose: 100 mls/hr Insulin Aspart (Novolog Vial Sliding Scale -) 1 vial SQ TIDAC [facility]; Protocol Last Admin: 07/20/18 06:03 Dose: Not Given Oxycodone HCl (Roxicodone -) 5 mg PO Q6H PRN PRN Reason: PAIN LEVEL 6-10 Last Admin: 07/19/18 01:31 Dose: 5 mg Valsartan (Diovan -) 160 mg PO DAILY [facility] Last Admin: 07/19/18 09:19 Dose: 160 mg - Objective Vital Signs: Vital Signs Temperature 98.7 F 07/20/18 05:33 Pulse Rate 85 07/20/18 05:33 Respiratory Rate 20 07/20/18 05:33 Blood Pressure 135/61 07/20/18 05:33 O2 Sat by Pulse Oximetry (%) 96 07/19/18 21:00 Constitutional: Yes: Well Nourished, No Distress Eyes: Yes: Conjunctiva Clear, EOM Intact HENT: Yes: Atraumatic, Normocephalic. No: Nasal Congestion, Pharyngeal Erythema Neck: Yes: Supple, Trachea Midline. No: Decreased ROM, Lymphadenopathy Cardiovascular: Yes: Regular Rate and Rhythm, S1, S2. No: JVD, Murmur Respiratory: Yes: Regular, CTA Bilaterally Gastrointestinal: Yes: Normal Bowel Sounds, Soft Musculoskeletal: Yes: Other (Left Knee s/p arthrodesis inflamed scar extensive cellulitis of Leg and medial aspect of thigh) Edema: Yes Edema: LLE: 1+, RLE: Trace Peripheral Pulses: Left Doralis Pedis: 1+, Right Dorsalis Pedis: 1+ Integumentary: Yes: Other (Left LE Cellulitis) Neurological: Yes: Alert, Oriented ...Motor Strength: WNL, LUE, LLE, RUE, RLE Psychiatric: Yes: Alert, Oriented Labs: CBC, BMP 07/20/18 06:45 07/20/18 06:45 INR, PTT INR 1.16 (0.83-1.09) H 07/17/18 10:00 Problem List - Problems (1) Cellulitis of left lower extremity Assessment/Plan: complicated , sever previously treted with broad spectrum am responded to Daptomycine considering iplant and H/O recurrent infection ID and ortho at [place] , ID consulted, ortho evaluted the patient improving on Daptomycine and Meropenem F/U ESR, CRP, tylenol for fever. Code(s): L03.116 - CELLULITIS OF LEFT LOWER LIMB (2) HTN (hypertension) Assessment/Plan: Resume home meds at present well controlled Code(s): I10 - ESSENTIAL (PRIMARY) HYPERTENSION (3) T2DM (type 2 diabetes mellitus) Assessment/Plan: Hold Metformin accucheck cont correction dose Lispro Code(s): E11.9 - TYPE 2 DIABETES MELLITUS WITHOUT COMPLICATIONS (4) Obesity (BMI 30-39.9) Assessment/Plan: Nutrion consult as out patient. Code(s): E66.9 - OBESITY, UNSPECIFIED
[2018-07-20] MEDS: ENOXAPARIN NA (PORCINE) 40 MG/0.4 ML DISP.SYRIN SQ SCH (09:27)
[2018-07-20] MEDS: VALSARTAN 160 MG TABLET (UD) PO SCH (09:27)
[2018-07-20] MEDS: DAPTOMYCIN 540 MG in SODIUM CHLORIDE 50 ML IVPB SCH (10:08)
--- NOTE | 2018-07-20 16:38 | PN ---
Progress Note, Physician History of Present Illness: FEELING BETTER REPORTS LESS L LEG PAIN ABLE TO BEAR WEIGH ON L LE W/O PAIN NO FEVER/ CHILLS LOW GRADE TEMPS BC (-) - Current Medication List Current Medications: Active Medications Acetaminophen (Tylenol -) 650 mg PO Q6H PRN PRN Reason: FEVER Last Admin: 07/20/18 00:49 Dose: 650 mg Enoxaparin Sodium (Lovenox -) 40 mg SQ DAILY [facility] Last Admin: 07/20/18 09:27 Dose: 40 mg Furosemide (Lasix -) 20 mg PO DAILY [facility] Last Admin: 07/20/18 09:26 Dose: 20 mg Meropenem 1 gm/ Dextrose 100 mls @ 200 mls/hr IVPB Q8H-IV [facility] Last Admin: 07/20/18 09:26 Dose: 200 mls/hr Daptomycin 540 mg/ Sodium (Chloride) 50 mls @ 100 mls/hr IVPB DAILY [facility]; Protocol Last Admin: 07/20/18 10:08 Dose: 100 mls/hr Insulin Aspart (Novolog Vial Sliding Scale -) 1 vial SQ TIDAC [facility]; Protocol Last Admin: 07/20/18 11:39 Dose: 2 units Oxycodone HCl (Roxicodone -) 5 mg PO Q6H PRN PRN Reason: PAIN LEVEL 6-10 Last Admin: 07/19/18 01:31 Dose: 5 mg Valsartan (Diovan -) 160 mg PO DAILY [facility] Last Admin: 07/20/18 09:27 Dose: 160 mg - Objective Vital Signs: Vital Signs Temperature 100.2 F H 07/20/18 14:50 Pulse Rate 103 H 07/20/18 14:50 Respiratory Rate 20 07/20/18 14:50 Blood Pressure 137/63 07/20/18 14:50 O2 Sat by Pulse Oximetry (%) 96 07/20/18 09:00 Constitutional: Yes: No Distress, Obese Eyes: Yes: Conjunctiva Clear Cardiovascular: Yes: Regular Rate and Rhythm, S1, S2 Respiratory: Yes: CTA Bilaterally Gastrointestinal: Yes: Normal Bowel Sounds, Soft. No: Tenderness Musculoskeletal: Yes: Other (DECREASED ERYTHEMA/ WARMTH L LE) Labs: CBC, BMP 07/20/18 06:45 07/20/18 06:45 INR, PTT INR 1.16 (0.83-1.09) H 07/17/18 10:00 Assessment/Plan CELLULITIS L LE FEVER/ LEUKOCYTOSIS R/O SEPSIS SECONDARY TO SKIN SOURCE HX CHRONICALLY INFECTED L TKR CONTINUE EMPIRIC ANTIBIOTICS
[2018-07-20] MEDS ORDERED: ONDANSETRON 4 MG/2 ML VIAL IVPUSH PRN (18:23)
[2018-07-21] MEDS ORDERED: MEROPENEM 1 GM VIAL (RESTRICTED TO ID) IVPB ONE ×3 (00:45→17:06)
[2018-07-21] MEDS ORDERED: DEXTROSE 5%-WATER 100 ML IVPB ONE ×3 (00:45→17:06)
[2018-07-21] MEDS: MEROPENEM 1 GM in DEXTROSE 5%-WATER 100 ML IVPB SCH ×3 (01:34→17:24)
[2018-07-21] MEDS: INSULIN SLIDING SCALE (NOVOLOG) 1 VIAL SQ SCH ×3 (06:13→17:30)
[2018-07-21 07:51] LABS: BASO % 0.4 % (0-2.0); EOS % 1.5 % (0-4.5); HEMATOCRIT 36.1 % (32.4-45.2); HEMOGLOBIN 11.9 GM/dL (10.7-15.3); LYMPH % 12.6 % (8-40); MCH 27.2 pg (25.7-33.7); MEAN CELL VOLUME 82.6 fl (80-96); MEAN PLT VOLUME 8.5 fl (7.5-11.1); MONO % 9.9 % (3.8-10.2); NEUT % 75.6 % (42.8-82.8); PLATELET COUNT 256 K/MM3 (134-434); RBC 4.38 M/mm3 (3.60-5.2); RDW 13.7 % (11.6-15.6); WHITE BLOOD COUNT 9.9 K/mm3 (4.0-10.0)
--- NOTE | 2018-07-21 08:08 | PN ---
Progress Note, Physician Chief Complaint: Feels improved, but low grade fever - Current Medication List Current Medications: Active Medications Acetaminophen (Tylenol -) 650 mg PO Q6H PRN PRN Reason: FEVER Last Admin: 07/20/18 21:15 Dose: 650 mg Enoxaparin Sodium (Lovenox -) 40 mg SQ DAILY [facility] Last Admin: 07/20/18 09:27 Dose: 40 mg Furosemide (Lasix -) 20 mg PO DAILY [facility] Last Admin: 07/20/18 09:26 Dose: 20 mg Meropenem 1 gm/ Dextrose 100 mls @ 200 mls/hr IVPB Q8H-IV [facility] Last Admin: 07/21/18 01:34 Dose: 200 mls/hr Daptomycin 540 mg/ Sodium (Chloride) 50 mls @ 100 mls/hr IVPB DAILY [facility]; Protocol Last Admin: 07/20/18 10:08 Dose: 100 mls/hr Insulin Aspart (Novolog Vial Sliding Scale -) 1 vial SQ TIDAC [facility]; Protocol Last Admin: 07/21/18 06:13 Dose: Not Given Ondansetron HCl (Zofran Injection) 4 mg IVPUSH Q6H PRN PRN Reason: NAUSEA Valsartan (Diovan -) 160 mg PO DAILY [facility] Last Admin: 07/20/18 09:27 Dose: 160 mg - Objective Vital Signs: Vital Signs Temperature 99.5 F 07/21/18 06:05 Pulse Rate 92 H 07/21/18 06:05 Respiratory Rate 20 07/21/18 06:05 Blood Pressure 146/71 07/21/18 06:05 O2 Sat by Pulse Oximetry (%) 96 07/20/18 21:00 Comfortable not in distress HEENT: MM moist, mild anemia, Neck: Yes: Supple, Trachea Midline. No: Decreased ROM, Lymphadenopathy Cardiovascular: Yes: Regular Rate and Rhythm, S1, S2. No: JVD, Murmur Respiratory: Regular, CTA Bilaterally Gastrointestinal: Yes: Normal Bowel Sounds, Soft Lower Exermities: Left Knee s/p arthrodesis inflamed scar extensive cellulitis of Leg and medial aspect of thigh improving sibs=nce hospitalization. left LE extensive edema t base line. Peripheral Pulses: Left Doralis Pedis: 1+, Right Dorsalis Pedis: 1+ Integumentary: improving Left LE Cellulitis) Neurological: Yes: Alert, Oriented, Motor Strength: WNL, LUE, LLE, RUE, RLE Labs: INR, PTT INR 1.16 (0.83-1.09) H 07/17/18 10:00 Problem List - Problems (1) Cellulitis of left lower extremity Assessment/Plan: complicated , sever previously treated with broad spectrum am responded to Daptomycine considering implant and H/O recurrent infection ID and ortho at [place] , ID consulted, ortho evaluated the patient, Cellulitis is improving on Daptomycine and Meropenem F/U ESR, CRP, tylenol for fever. Discussed with Dr Gilliland total 7 days of empiric IV abx and switch to appropriate O coverage today day 5th Daptomycin and Meropenem. Code(s): L03.116 - CELLULITIS OF LEFT LOWER LIMB (2) HTN (hypertension) Assessment/Plan: Resume home meds at present well controlled Code(s): I10 - ESSENTIAL (PRIMARY) HYPERTENSION (3) T2DM (type 2 diabetes mellitus) Assessment/Plan: Hold Metformin accucheck cont correction dose Lispro Code(s): E11.9 - TYPE 2 DIABETES MELLITUS WITHOUT COMPLICATIONS (4) Obesity (BMI 30-39.9) Assessment/Plan: Nutrion consult as out patient. Code(s): E66.9 - OBESITY, UNSPECIFIED (5) Depressed Assessment/Plan: Cont rameron Code(s): F32.9 - MAJOR DEPRESSIVE DISORDER, SINGLE EPISODE, UNSPECIFIED
[2018-07-21 08:13] LABS: ANION GAP 8 MMOL/L (8-16); BLOOD UREA NITROGEN 11 mg/dL (7-18); CALCIUM 8.6 mg/dL (8.5-10.1); CHLORIDE 102 mmol/L (98-107); CO2 27 mmol/L (21-32); CREATININE 0.6 mg/dL (0.55-1.3); GLUCOSE,RANDOM 115 mg/dL (74-106); POTASSIUM 3.6 mmol/L (3.5-5.1); SODIUM 137 mmol/L (136-145)
[2018-07-21] MEDS ORDERED: PT OWN MED DRAWER 7, Y5N ONE (09:49)
[2018-07-21] MEDS: FUROSEMIDE 20 MG TABLET (FP) PO SCH (09:51)
[2018-07-21] MEDS: ENOXAPARIN NA (PORCINE) 40 MG/0.4 ML DISP.SYRIN SQ SCH (09:51)
[2018-07-21] MEDS: VALSARTAN 160 MG TABLET (UD) PO SCH (09:52)
[2018-07-21] MEDS: DAPTOMYCIN 540 MG in SODIUM CHLORIDE 50 ML IVPB SCH (11:22)
[2018-07-21] MEDS ORDERED: diphenhydrAMINE HCL 25 MG CAPSULE (FP) PO ONE (22:15)
[2018-07-21] MEDS: ACETAMINOPHEN 325 MG TABLET (FP) PO PRN (22:41)
[2018-07-22] MEDS ORDERED: DEXTROSE 5%-WATER 100 ML IVPB ONE ×3 (00:38→18:35)
[2018-07-22] MEDS ORDERED: MEROPENEM 1 GM VIAL (RESTRICTED TO ID) IVPB ONE ×3 (00:38→18:35)
[2018-07-22] MEDS: MEROPENEM 1 GM in DEXTROSE 5%-WATER 100 ML IVPB SCH ×3 (02:06→18:38)
[2018-07-22] MEDS: INSULIN SLIDING SCALE (NOVOLOG) 1 VIAL SQ SCH ×3 (06:10→18:22)
[2018-07-22 06:43] LABS: ANION GAP 7 MMOL/L (8-16); BLOOD UREA NITROGEN 10 mg/dL (7-18); CALCIUM 8.8 mg/dL (8.5-10.1); CHLORIDE 104 mmol/L (98-107); CO2 27 mmol/L (21-32); CREATININE 0.6 mg/dL (0.55-1.3); GLUCOSE,RANDOM 113 mg/dL (74-106); POTASSIUM 3.9 mmol/L (3.5-5.1); SODIUM 138 mmol/L (136-145)
[2018-07-22 07:02] LABS: BASO % 0.6 % (0-2.0); EOS % 1.5 % (0-4.5); HEMATOCRIT 37.8 % (32.4-45.2); HEMOGLOBIN 12.6 GM/dL (10.7-15.3); MCH 27.7 pg (25.7-33.7); MCHC 33.3 g/dl (32.0-36.0); MEAN CELL VOLUME 83.1 fl (80-96); MEAN PLT VOLUME 8.7 fl (7.5-11.1); MONO % 9.7 % (3.8-10.2); NEUT % 71.2 % (42.8-82.8); PLATELET COUNT 294 K/MM3 (134-434); RBC 4.54 M/mm3 (3.60-5.2); WHITE BLOOD COUNT 10.1 K/mm3 (4.0-10.0)
[2018-07-22] MEDS: FUROSEMIDE 20 MG TABLET (FP) PO SCH (09:45)
[2018-07-22] MEDS: ENOXAPARIN NA (PORCINE) 40 MG/0.4 ML DISP.SYRIN SQ SCH (09:45)
[2018-07-22] MEDS: VALSARTAN 160 MG TABLET (UD) PO SCH (09:45)
[2018-07-22] MEDS: DAPTOMYCIN 540 MG in SODIUM CHLORIDE 50 ML IVPB SCH (11:23)
--- NOTE | 2018-07-22 16:16 | PN ---
Physical Exam: SUBJECTIVE: Patient seen and examined, leg pain/swelling improved, able to ambulate now, no fevers/chills or concerns. OBJECTIVE: Vital Signs Period Temp Pulse Resp BP Sys/Parnell Pulse Ox Last 24 Hr 98 F-99.7 F 75-96 18-20 120-136/59-65 95-96 Intake & Output 07/19/18 07/20/18 07/21/18 07/22/18 23:59 23:59 23:59 23:59 Intake Total 1400 1270 1400 800 Balance 1400 1270 1400 800 Weight 195 lb GENERAL: sitting in bed in no acute distress Chest:CTAB, no rales or wheezing Abdomen:Soft, obese, NT Extremities: bilateral Pedal edema and erythema, L>R, markedly improved from before per son at bedside and nursing, non tender to palpation Laboratory Results - last 24 hr 07/21/18 07/22/18 07/22/18 17:30 05:30 05:30 WBC 10.1 H RBC 4.54 Hgb 12.6 Hct 37.8 MCV 83.1 MCH 27.7 MCHC 33.3 RDW 14.0 Plt Count 294 MPV 8.7 Absolute Neuts (auto) 7.2 Neutrophils % 71.2 Lymphocytes % 17.0 D Monocytes % 9.7 Eosinophils % 1.5 Basophils % 0.6 Nucleated RBC % 0 Sodium 138 Potassium 3.9 Chloride 104 Carbon Dioxide 27 Anion Gap 7 L BUN 10 Creatinine 0.6 Creat Clearance w eGFR 98.27 POC Glucometer 117 Random Glucose 113 H Calcium 8.8 C-Reactive Protein 15.0 H 07/22/18 07/22/18 05:44 11:25 WBC RBC Hgb Hct MCV MCH MCHC RDW Plt Count MPV Absolute Neuts (auto) Neutrophils % Lymphocytes % Monocytes % Eosinophils % Basophils % Nucleated RBC % Sodium Potassium Chloride Carbon Dioxide Anion Gap BUN Creatinine Creat Clearance w eGFR POC Glucometer 109 139 Random Glucose Calcium C-Reactive Protein Active Medications Generic Name Dose Route Start Last Admin Trade Name Freq PRN Reason Stop Dose Admin Acetaminophen 650 mg 07/18/18 06:11 07/21/18 22:41 Tylenol - PO 650 mg Q6H PRN Administration FEVER Enoxaparin Sodium 40 mg 07/17/18 16:45 07/22/18 09:45 Lovenox - SQ 40 mg DAILY JOSE LUIS Administration Furosemide 20 mg 07/18/18 10:00 07/22/18 09:45 Lasix - PO 20 mg DAILY JOSE LUIS Administration Meropenem 1 gm/ Dextrose 100 mls @ 200 mls/hr 07/18/18 18:00 07/22/18 09:45 IVPB 200 mls/hr Q8H-IV JOSE LUIS Administration Daptomycin 540 mg/ Sodium 50 mls @ 100 mls/hr 07/18/18 15:30 07/22/18 11:23 Chloride IVPB 100 mls/hr DAILY JOSE LUIS Administration Protocol Insulin Aspart 1 vial 07/17/18 16:45 07/22/18 11:28 Novolog Vial Sliding Scale - SQ Not Given TIDAC [facility] Protocol Mirtazapine 7.5 mg 07/22/18 22:00 Remeron - PO HS [facility] Ondansetron HCl 4 mg 07/20/18 18:23 Zofran Injection IVPUSH Q6H PRN NAUSEA Valsartan 160 mg 07/18/18 10:00 07/22/18 09:45 Diovan - PO 160 mg DAILY JOSE LUIS Administration Home Medications Medication Instructions Recorded metFORMIN HCL [Metformin HCl] 500 mg PO BID 01/14/17 Furosemide [Lasix] 20 mg PO DAILY 07/17/18 Hydrocodone/Acetaminophen 1 each PO Q6H PRN 07/17/18 [Hydrocodon-Acetaminophn 10-325] Olmesartan Medoxomil 20 mg PO DAILY 07/17/18 Mirtazapine [Remeron -] 7.5 mg PO DAILY MDD 7.5 07/21/18 Microbiology 07/17/18 10:00 Blood - Peripheral Venous Blood Culture - Final NO GROWTH AFTER 5 DAYS INCUBATION 07/17/18 10:00 Blood - Peripheral Venous Blood Culture - Final NO GROWTH AFTER 5 DAYS INCUBATION 07/17/18 10:20 Urine - Urine - Catheterized Urine Culture - Final NO GROWTH OBTAINED ASSESSMENT/PLAN: 73 yrs old F with H/O HTN, T2DM, s/p R 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 Onelia cunha , Left knee implant was removed underwent Left knee arthrodesis with metallic implant and treated with Daptomycine with good result complete treatment 6 months ago admitted with LE cellulitis -LE cellulitis -HTN -NIDDM -s/p R 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 Onelia cunha , Left knee implant was removed underwent Left knee arthrodesis with metallic implant and treated with Daptomycine with good result Plan: Clinically improved, afebrile, normal WBC. ESR/CRP noted. ID input appreciated. Meropenem/Daptomycin day 6/7. Discuss with ID for pO abx taper in 24 hours Orthopedic input noted. ISS, hold metformin. Continue valsartan/remeron. PT eval noted. PLan for home dc with services in 24 hours on PO abx if no new concerns. Plan discussed with patient and son at bedside in detail, all questions answered. Visit type - Emergency Visit Emergency Visit: Yes ED Registration Date: 07/17/18 Care time: The patient presented to the Emergency Department on the above date and was hospitalized for further evaluation of their emergent condition. - New Patient This patient is new to me today: Yes Date on this admission: 07/22/18 - Critical Care Critical Care patient: No - Discharge Referral Referred to [facility] Med P.C.: No
[2018-07-22] MEDS ORDERED: PT OWN MED DRAWER 7, Y5N ONE ×2 (21:18→21:20)
[2018-07-22] MEDS ORDERED: MIRTAZAPINE 15 MG TABLET (FP) PO SCH (22:00)
[2018-07-23] MEDS ORDERED: MEROPENEM 1 GM VIAL (RESTRICTED TO ID) IVPB ONE ×2 (01:51→09:08)
[2018-07-23] MEDS ORDERED: DEXTROSE 5%-WATER 100 ML IVPB ONE ×2 (01:51→09:09)
[2018-07-23] MEDS: MEROPENEM 1 GM in DEXTROSE 5%-WATER 100 ML IVPB SCH ×2 (01:57→09:41)
[2018-07-23] MEDS: INSULIN SLIDING SCALE (NOVOLOG) 1 VIAL SQ SCH ×2 (06:23→13:29)
[2018-07-23 08:28] LABS: BASO % 0.6 % (0-2.0); EOS % 3.3 % (0-4.5); HEMATOCRIT 36.7 % (32.4-45.2); HEMOGLOBIN 12.3 GM/dL (10.7-15.3); LYMPH % 15.5 % (8-40); MCH 27.7 pg (25.7-33.7); MCHC 33.6 g/dl (32.0-36.0); MEAN CELL VOLUME 82.5 fl (80-96); MEAN PLT VOLUME 8.4 fl (7.5-11.1); NEUT % 71.6 % (42.8-82.8); PLATELET COUNT 311 K/MM3 (134-434); RBC 4.45 M/mm3 (3.60-5.2); RDW 13.8 % (11.6-15.6); WHITE BLOOD COUNT 7.8 K/mm3 (4.0-10.0)
[2018-07-23 08:50] LABS: ANION GAP 6 MMOL/L (8-16); BLOOD UREA NITROGEN 13 mg/dL (7-18); CALCIUM 9.1 mg/dL (8.5-10.1); CHLORIDE 106 mmol/L (98-107); CO2 29 mmol/L (21-32); CREATININE 0.5 mg/dL (0.55-1.3); GLUCOSE,RANDOM 116 mg/dL (74-106); POTASSIUM 3.9 mmol/L (3.5-5.1); SODIUM 141 mmol/L (136-145)
[2018-07-23] MEDS: FUROSEMIDE 20 MG TABLET (FP) PO SCH (09:42)
[2018-07-23] MEDS: ENOXAPARIN NA (PORCINE) 40 MG/0.4 ML DISP.SYRIN SQ SCH (09:42)
[2018-07-23] MEDS: VALSARTAN 160 MG TABLET (UD) PO SCH (09:42)
[2018-07-23] MEDS: DAPTOMYCIN 540 MG in SODIUM CHLORIDE 50 ML IVPB SCH (10:21)
[2018-07-23] MEDS ORDERED: INSULIN (LEVEMIR) 100 UNITS/ML UNITS SQ ONE (10:30)
[2018-07-23 13:48] VITALS: BP 152/73; PULSE 92; TEMP 98.4
--- NOTE | 2018-07-23 14:05 | PN ---
Teaching Attending Note Name of Resident: Charley Ceja ATTENDING PHYSICIAN STATEMENT I saw and evaluated the patient. I reviewed the resident's note and discussed the case with the resident. I agree with the resident's findings and plan as documented with exceptions below. SUBJECTIVE: Patient seen and examined. leg symptoms markedly improved, able to walk, eager to go home. OBJECTIVE: Vital Signs Period Temp Pulse Resp BP Sys/Parnell Pulse Ox Last 24 Hr 97.5 F-98.8 F 73-92 18-20 117-152/50-73 96-96 Intake & Output 07/20/18 07/21/18 07/22/18 07/23/18 23:59 23:59 23:59 23:59 Intake Total 1270 1400 1250 550 Balance 1270 1400 1250 550 General: sitting in chair in no acute distress Chest: CTAB, no rales or wheezing Abdomen:Soft, obese, NT Extremities: bilateral Pedal edema and erythema, L>R, markedly improved from before per son at bedside and nursing, non tender to palpation ASSESSMENT AND PLAN: 73 yrs old F with H/O HTN, T2DM, s/p R TKR (05/17), s/p L TKR (01/16/17), patient fell on her L knee 2 days after her L TKR surgery and it was complicated by wound dehiscence.TKR subsequently developed recurrent infection treated with IV abx, multiple wash eventually transferred to [facility] for Complicated prosthesis unit under Dr. Onelia cunha , Left knee implant was removed underwent Left knee arthrodesis with metallic implant and treated with Daptomycin with good result complete treatment 6 months ago admitted with LE cellulitis -LE cellulitis -HTN -NIDDM -s/p R TKR (05/17), s/p L TKR (01/16/17), patient fell on her L knee 2 days after her L TKR surgery and it was complicated by wound dehiscence.TKR subsequently developed recurrent infection treated with IV abx, multiple wash eventually transferred to [facility] for Complicated prosthesis unit under Dr. Onelia cunha , Left knee implant was removed underwent Left knee arthrodesis with metallic implant and treated with Daptomycine with good result Plan: Clinically improved, afebrile, normal WBC. ESR/CRP noted. ID input appreciated. Meropenem/Daptomycin day 10/04. Discuss with ID for pO abx Orthopedic input noted. ISS, hold metformin. Continue valsartan/remeron. PT eval noted. PLan for home dc home today pending ID input. Discussed with patient and nursing, all questions answered.
--- NOTE | 2018-07-23 14:36 | PN ---
Progress Note, Physician History of Present Illness: FEELING BETTER NO C/O L LEG PAIN AT REST ABLE TO BEAR WEIGHT ON L LE W/O PAIN NO FEVER/ CHILLS LOW GRADE TEMPS WBC WNL BC (-) - Current Medication List Current Medications: Active Medications Acetaminophen (Tylenol -) 650 mg PO Q6H PRN PRN Reason: FEVER Last Admin: 07/21/18 22:41 Dose: 650 mg Enoxaparin Sodium (Lovenox -) 40 mg SQ DAILY [facility] Last Admin: 07/23/18 09:42 Dose: 40 mg Furosemide (Lasix -) 20 mg PO DAILY [facility] Last Admin: 07/23/18 09:42 Dose: 20 mg Meropenem 1 gm/ Dextrose 100 mls @ 200 mls/hr IVPB Q8H-IV [facility] Last Admin: 07/23/18 09:41 Dose: 200 mls/hr Daptomycin 540 mg/ Sodium (Chloride) 50 mls @ 100 mls/hr IVPB DAILY [facility]; Protocol Last Admin: 07/23/18 10:21 Dose: 100 mls/hr Insulin Aspart (Novolog Vial Sliding Scale -) 1 vial SQ TIDAC [facility]; Protocol Last Admin: 07/23/18 13:29 Dose: Not Given Mirtazapine (Remeron -) 7.5 mg PO HS [facility] Last Admin: 07/22/18 22:44 Dose: 7.5 mg Ondansetron HCl (Zofran Injection) 4 mg IVPUSH Q6H PRN PRN Reason: NAUSEA Valsartan (Diovan -) 160 mg PO DAILY [facility] Last Admin: 07/23/18 09:42 Dose: 160 mg - Objective Vital Signs: Vital Signs Temperature 98.4 F 07/23/18 13:46 Pulse Rate 92 H 07/23/18 13:46 Respiratory Rate 20 07/23/18 13:46 Blood Pressure 152/73 07/23/18 13:46 O2 Sat by Pulse Oximetry (%) 96 07/23/18 09:00 Constitutional: Yes: No Distress, Obese Cardiovascular: Yes: Regular Rate and Rhythm, S1, S2 Respiratory: Yes: CTA Bilaterally Gastrointestinal: Yes: Normal Bowel Sounds, Soft, Abdomen, Obese. No: Tenderness Extremities: Yes: Other (ERYTHEMA L LE RESOLVED) Edema: Yes Labs: CBC, BMP 07/23/18 08:12 07/23/18 08:12 INR, PTT INR 1.16 (0.83-1.09) H 07/17/18 10:00 Assessment/Plan CELLULITIS L LE RESOLVED HX CHRONICALLY INFECTED L TKR SUBSTITUTE PO AUGMENTIN 875MG BID X 7D PT TO F/U WITH ORTHOPEDIST OUTPATIENT
--- NOTE | 2018-07-23 14:54 | DS ---
Physical Exam: SUBJECTIVE: Patient seen and examined. She is feeling good today, no pain. OBJECTIVE: Vital Signs Period Temp Pulse Resp BP Sys/Parnell Pulse Ox Last 24 Hr 97.5 F-98.8 F 73-92 18-20 117-152/50-73 96-96 PHYSICAL EXAM GENERAL: The patient is awake, alert, and fully oriented, in no acute distress. HEAD: Normal with no signs of trauma. EYES: Extraocular movements intact ENT: Moist mucous membranes. NECK: Trachea midline, full range of motion, supple. LUNGS: Clear to auscultation bilaterally, no wheezes, no crackles, no accessory muscle use. HEART: Regular rate and rhythm, S1, S2 without murmur, rub or gallop. ABDOMEN: Obese, soft, nontender, nondistended, normoactive bowel sounds, no guarding. NEUROLOGICAL: Normal speech, gait not observed. PSYCH: Normal mood, normal affect. SKIN: Warm, dry, left lower extremity: rash in her tibia, warm to touch, mild tenderness to palpation, visible scars on anerior aspect of both knees, well healed, limited ROm in both knees. LABS Laboratory Results - last 24 hr 07/22/18 07/23/18 07/23/18 16:38 06:22 08:12 WBC 7.8 RBC 4.45 Hgb 12.3 Hct 36.7 MCV 82.5 MCH 27.7 MCHC 33.6 RDW 13.8 Plt Count 311 MPV 8.4 Absolute Neuts (auto) 5.6 Neutrophils % 71.6 Lymphocytes % 15.5 Monocytes % 9.0 Eosinophils % 3.3 D Basophils % 0.6 Nucleated RBC % 0 Sodium Potassium Chloride Carbon Dioxide Anion Gap BUN Creatinine Creat Clearance w eGFR POC Glucometer 162 86 Random Glucose Calcium 07/23/18 07/23/18 08:12 11:42 WBC RBC Hgb Hct MCV MCH MCHC RDW Plt Count MPV Absolute Neuts (auto) Neutrophils % Lymphocytes % Monocytes % Eosinophils % Basophils % Nucleated RBC % Sodium 141 Potassium 3.9 Chloride 106 Carbon Dioxide 29 Anion Gap 6 L BUN 13 Creatinine 0.5 L Creat Clearance w eGFR 121.28 POC Glucometer 136 Random Glucose 116 H Calcium 9.1 HOSPITAL COURSE: The patient is a 73 year old F with PMH of HTN, T2DM, s/p R TKR (05/17), s/p L TKR (01/16/17), h/o of wound dehiscence after fall, post TKR in left knee, treated with Daptomycin. She completed the treatment 6 months ago. Last time she followed up her Orthopedic surgeon was 2 weeks ago. She presented to [facility] c/o Left LE pain, erythema, worsening swelling and erythema, extending to the medial aspect of thigh. It was associated with fever and chills without any trauma or skin lesion, denies any pain in Rt knee. In the Emergency Room she had LE Doppler poor quality but - for DVT, [facility] and ID consulted and pt was admitted for cellulitis. During the hospital course she was treated with Daptomycin and Meropenem, finished 7 days of IV antibiotics, ID was consulted. She clinically improved, fever resolved, leukocytosis, improved. We also managed her diabetes with insulin sliding scale and monitored her blood pressure with home medications. She was discharged home with recommendations to continue Augumentin 875 mg BID for 7 more days and follow up with her Orthopedic surgeon and PCP. The patient was also counseled about weight loss. Date of Admission:07/17/18 Date of Discharge: 07/23/18 Minutes to complete discharge: 35 Discharge Summary Reason For Visit: CELLULITIS Current Active Problems Cellulitis (Acute) Cellulitis of left lower extremity (Acute) Depressed (Acute) HTN (hypertension) (Acute) Obesity (BMI 30-39.9) (Acute) T2DM (type 2 diabetes mellitus) (Acute) Condition: Stable - Instructions Diet, Activity, Other Instructions: Ms Aaron, you were admitted to the hospital for cellulitis of your leg. We treated you with intravenous antibiotics: Daptomycin and Meropenem and Infection of your leg improved. MEDICATIONS: Please continue to take AUGMENTIN 875MG twice a day for 7 days. Continue to take all the medications that you were taking before coming to the hospital. REFERRALS: Please visit your primary care physician in a week after the discharge. Please see your Orthopedic doctor in [facility] clinic- Dr Morejon in 1-2 weeks. He will decide if you need to take mcfp antibiotics for your leg. Please see subpoena server to assist you with healthy well balanced diet and weight loss. If you have pain in your leg, you may take Tylenol or Ibuprophen (take it with food). If you have severe leg pain, fever, chills, shortness of breath or worsening of any of your symptoms, call 911 or come to Emergency Room as soon as possible. Referrals: Sabino Trivedi [Primary Care Provider] - 1 Week Manolo Rousseau [Non Staff, Medical] - 1 Week Disposition: HOME - Home Medications Comprehensive Discharge Medication List: Ambulatory Orders metFORMIN HCL [Metformin HCl] 500 mg PO BID 01/14/17 Furosemide [Lasix] 20 mg PO DAILY 07/17/18 Hydrocodone/Acetaminophen [Hydrocodone-Acetamin 10-325 mg] 1 each PO Q6H PRN Olmesartan Medoxomil 20 mg PO DAILY 07/17/18 Mirtazapine [Remeron -] 7.5 mg PO DAILY MDD 7.5 07/21/18 Amoxicillin/Potassium Clav [Augmentin 875-125 Tablet] 1 each PO BID 7 Days #14 tablet 07/23/18 Problem List - Problems (1) Cellulitis Code(s): L03.90 - CELLULITIS, UNSPECIFIED Qualifiers: Site of cellulitis of extremity: lower extremity Laterality: right (2) Cellulitis of left lower extremity Code(s): L03.116 - CELLULITIS OF LEFT LOWER LIMB (3) Depressed Code(s): F32.9 - MAJOR DEPRESSIVE DISORDER, SINGLE EPISODE, UNSPECIFIED (4) HTN (hypertension) Code(s): I10 - ESSENTIAL (PRIMARY) HYPERTENSION (5) Infection of prosthetic left knee joint Code(s): T84.54XA - INFECT/INFLM REACTION DUE TO INTERNAL LEFT KNEE PROSTH, INIT Qualifiers: Encounter type: initial encounter Qualified Code(s): T84.54XA - Infection and inflammatory reaction due to internal left knee prosthesis, initial encounter (6) Obesity (BMI 30-39.9) Code(s): E66.9 - OBESITY, UNSPECIFIED (7) Osteoarthritis of left knee Code(s): M17.12 - UNILATERAL PRIMARY OSTEOARTHRITIS, LEFT KNEE Qualifiers: Osteoarthritis type: primary Qualified Code(s): M17.12 - Unilateral primary osteoarthritis, left knee (8) T2DM (type 2 diabetes mellitus) Code(s): E11.9 - TYPE 2 DIABETES MELLITUS WITHOUT COMPLICATIONS (9) Wound dehiscence Code(s): T81.30XA - DISRUPTION OF WOUND, UNSPECIFIED, INITIAL ENCOUNTER This patient is new to me today: No Emergency Visit: Yes ED Registration Date: 07/17/18 Care time: The patient presented to the Emergency Department on the above date and was hospitalized for further evaluation of their emergent condition. Critical Care patient: No - Discharge Referral Referred to [facility] Med P.C.: No
== END 2018-07-23 17:20 | disposition home or self-care (01) | DRG 383 ==
LOC: JER 09:09 → JERBED 15:48 → J7W 19:07
PROVIDERS: ADMIT Internal Medicine; ATTEND Hospitalist
DX: L03.116 Cellulitis of left lower limb (principal); L03.115 Cellulitis of right lower limb; I10 Essential (primary) hypertension; E11.9 Type 2 diabetes mellitus without complications; D72.829 Elevated white blood cell count, unspecified; I49.9 Cardiac arrhythmia, unspecified; R50.9 Fever, unspecified; K21.9 Gastro-esophageal reflux disease without esophagitis; F32.9 Major depressive disorder, single episode, unspecified; E66.9 Obesity, unspecified; Z68.38 Body mass index [BMI] 38.0-38.9, adult; Z88.1 Allergy status to other antibiotic agents; Z96.652 Presence of left artificial knee joint; Z96.651 Presence of right artificial knee joint
CPT/HCPCS: 36415; 71045-TC-FY; 73560-TC-LT-FY; 80048; 80053; 81003; 82803; 82962; 83605; 84484; 85025; 85610; 85651; 85730; 86140; 87040; 87086; 87804; 93005; 93010; 93971-TC; 97116-GP; 97161-GP; 99284-25; J0131; J0878

== ENCOUNTER 2023-04-17 06:26 | Day surgery (SDC) | payer OTHER ==
[2023-04-11 15:34] VITALS: BMI 39.0
[2023-04-17] MEDS ORDERED: MIDAZOLAM HCL 2 MG/2 ML SINGLE DOSE VIAL ONE (08:07)
[2023-04-17] MEDS ORDERED: LIDOCAINE HCL 1%, 10 MG/ML (20ML VIAL) ONE (08:19)
[2023-04-17] MEDS ORDERED: BUPIVACAINE HCL/PF 0.25% (2.5MG/ML) 10 ML VIAL ONE (08:19)
[2023-04-17] MEDS ORDERED: ceFAZolin SODIUM 1 GM VIAL ONE (08:38)
[2023-04-17] MEDS ORDERED: PROPOFOL 20 ML ONE (08:38)
[2023-04-17] MEDS ORDERED: BUPIVACAINE HCL/PF 0.25% (2.5MG/ML) 10 ML VIAL IJ ONE (08:48)
[2023-04-17] MEDS ORDERED: LIDOCAINE HCL 1%, 10 MG/ML (20ML VIAL) NR ONE (08:48)
[2023-04-17 10:59] VITALS: BP 120/68; PULSE 84; RESP 20; TEMP 98
== END 2023-04-17 09:35 | disposition home or self-care (01) ==
LOC: FASU 06:26
PROVIDERS: ATTEND Orthopaedic Surgery
PROC: 01N50ZZ Release Median Nerve, Open Approach (ICD-10-PCS; principal; 2023-04-17 08:48)
DX: G56.02 Carpal tunnel syndrome, left upper limb (principal)